=== PATIENT | female | born 1980 ===

== ENCOUNTER 2016-11-07 00:25 | Emergency (ER) | payer MEDICAID, OTHER ==
[2016-11-07 00:26] VITALS: BMI 37.3
[2016-11-07] MEDS ORDERED: Ciprofloxacin 0.3% OPTH SOLN OS STA (00:57)
[2016-11-07] MEDS ORDERED: TDAP Vaccine 0.5 mL Syr IM ONE (00:59)
--- NOTE | 2016-11-07 01:13 | ED PDOC ---
Arrival/HPI - General Historian: Patient - History of Present Illness Time/Duration: 1 week, Other (3 days) Symptom Onset: Gradual Symptom Course: Worsening Quality: Aching, Burning Severity Level: 4 - General Chief Complaint: Eye Problem Time Seen by Provider: 11/07/16 00:50 - History of Present Illness Narrative History of Present Illness (Text): 11/07/16 01:10 36yr old female presents today with 3 day history of left eye burning pain, photophobia and irritation. pt also with lower back pain and stiffness x 1 week. pt states she wears contacts regularly and over the past 3 days developed increasing pain and burning in the left eye. pt thinks she may have scratched her eye. pt states she never leaves her contacts in for an extended period of time. denies headaches, dizziness. no fever/chills. pt also c/o stiffness in the low back x 1 week. taking motrin for pain with minimal relief. denies abdominal pain. no vomiting/diarrhea. no urinary symptoms. denies trauma or injury prior to onset of back pain. pt states about 1 week ago she woke up with pain and stiffness. pt states this happens to her every once and a while. (Quyen Morrison) Past Medical History - Provider Review Nursing Documentation Reviewed: Yes - Travel History Have you recently traveled outside [place] w/in the past 3 mons?: No - Infectious Disease Hx of Infectious Diseases: None - Tetanus Immunization Tetanus Immunization: Unknown - Cardiac Hx Cardiac Disorders: No - Pulmonary Hx Respiratory Disorders: No - Neurological Hx Neurological Disorder: No - HEENT Hx HEENT Disorder: Yes Other/Comment: Keratoconous - Renal Hx Renal Disorder: No - Endocrine/Metabolic Hx Hyperthyroidism: Yes Hx Hypothyroidism: Yes - Hematological/Oncological Hx Anemia: Yes - Integumentary Hx Dermatological Disorder: No - Musculoskeletal/Rheumatological Hx Musculoskeletal Disorders: No - Gastrointestinal Hx Gastrointestinal Disorders: No - Genitourinary/Gynecological Hx Genitourinary Disorders: No - Psychiatric Hx Anxiety: Yes Hx Substance Use: No - Surgical History Hx Section: Yes Hx Gastric Bypass Surgery: Yes (sleeve 05/22) Hx Thyroidectomy: Yes Hx Tubal Ligation: Yes - Anesthesia Hx Anesthesia: Yes Hx Anesthesia Reactions: No Hx Malignant Hyperthermia: No Family/Social History - Physician Review Nursing Documentation Reviewed: Yes Family/Social History: Unknown Family HX Smoking Status: Former Smoker Hx Alcohol Use: Yes Frequency of alcohol use: Socially Hx Substance Use: No Allergies/Home Meds Allergies/Adverse Reactions: Allergies No Known Allergies Allergy (Verified 08/25/15 12:11) Home Medications: Home Meds Medication Instructions Recorded Confirmed Levothyroxine [Synthroid] 200 mcg PO DAILY 11/07/16 11/07/16 Pedi Multivit No.25/Folic Acid 300 mcg PO DAILY 11/07/16 11/07/16 [Flintstones Multivit Chew Tab] Review of Systems - Review of Systems Constitutional: absent: Fatigue, Fevers Eyes: Photophobia, Eye Pain (left eye pain). absent: Vision Changes ENT: absent: Sinus Congestion Respiratory: absent: SOB, Cough Cardiovascular: absent: Chest Pain, Palpitations Gastrointestinal: absent: Abdominal Pain, Nausea, Vomiting Genitourinary Female: absent: Dysuria, Frequency, Hematuria Musculoskeletal: Back Pain Skin: absent: Rash, Pruritis Neurological: absent: Headache, Dizziness Physical Exam Vital Signs Reviewed: Yes Temperature: Afebrile Blood Pressure: Normal Pulse: Regular Respiratory Rate: Normal Appearance: Positive for: Well-Appearing, Non-Toxic, Comfortable Pain Distress: None Mental Status: Positive for: Alert and Oriented X 3 - Systems Exam Head: Present: Atraumatic Pupils: Present: PERRL Conjunctiva: Present: Injected (left conjunctival injection with corneal opacity noted over central corneal; no abrasion, ), Other (no hypema, no periorbital edema or erythema) Mouth: Present: Moist Mucous Membranes Neck: Present: Normal Range of Motion Respiratory/Chest: Present: Clear to Auscultation, Good Air Exchange. No: Respiratory Distress, Accessory Muscle Use Cardiovascular: Present: Regular Rate and Rhythm, Normal S1, S2. No: Murmurs Abdomen: No: Tenderness Back: Present: Normal Inspection, Paraspinal Tenderness (+ right lower paraspinal tenderness. + left lower paraspinal tenderness. ). No: CVA Tenderness, Midline Tenderness Upper Extremity: Present: Normal ROM Lower Extremity: Present: Normal ROM Neurological: Present: GCS=15, Speech Normal Skin: Present: Warm, Dry Psychiatric: Present: Alert, Oriented x 3 Medical Decision Making ED Course and Treatment: 11/07/16 01:22 pt with 3 day history of left eye irritation. visual acuity; 20/70 both eyes; pt without any glasses or contacts. pt with corneal opacity/ulceration to left eye. tetanus updated. cipro drops started. pt given toradol and flexeril for back pain. case discussed with dr. lebron (eye doctor) discussed case in depth regarding my concerns for corneal ulceration. He suggested alternating cipro and vigamox drops every hour and f/u in the office on wednesday at 930am. pt reassessment; pt feeling better after medications. discussed all results in depth with patient. advised f/u with eye doctor on wednesday morning at 930 am. stressed importance of f/u with eye doctor shakir. advised alternating cipro and vigamox drops every hour. advised immediate return if symptoms worsen,persist or if new symptoms develop. pt verbalized understand of d/c instructions and need for immediate f/u. impression; corneal ulceration, back pain motrin every 6 hours as needed for pain flexeril; 1 tablet every 8 hours as needed for muscle spasms; may cause drowsiness Alternate cipro eye drops and vigamox eye drops every hour. Follow up with the Eye doctor on wednesday at 930am Follow up with the primary care physician within the next 2 days. return immediate if symptoms worsen,persist or if new symptoms develop. (Quyen Morrison) I was available for consultation during PA evaluation. The chart was reviewed by me, and I agree with disposition. The documented history was done by the physician green marketing specialist. The documented physical exam was done by the physician green marketing specialist. The documented procedures were done by the physician green marketing specialist. (Major Harrington) - Medication Orders Current Medication Orders: Discontinued Medications Ciprofloxacin (Ciloxan 0.3% [facility]) 2 drop OS Q4H STA Stop: 11/07/16 00:58 Last Admin: 11/07/16 01:08 Dose: 2 drp Cyclobenzaprine HCl (Flexeril) 10 mg PO STAT STA Stop: 11/07/16 00:58 Last Admin: 11/07/16 01:08 Dose: 10 mg Ketorolac Tromethamine (Toradol) 60 mg IM STAT STA Stop: 11/07/16 00:58 Last Admin: 11/07/16 01:08 Dose: 60 mg Tetanus/Reduced Diphtheria/Acell Pertussis (Boostrix Vaccine Inj) 0.5 ml IM .ONCE ONE Stop: 11/07/16 01:00 Last Admin: 11/07/16 01:16 Dose: 0.5 ml Disposition/Present on Arrival - Present on Arrival Any Indicators Present on Arrival: No History of DVT/PE: No History of Uncontrolled Diabetes: No Urinary Catheter: No History of Decub. Ulcer: No History Surgical Site Infection Following: None - Disposition Have Diagnosis and Disposition been Completed?: Yes Disposition Time: 01:30 Patient Plan: Discharge - Disposition Diagnosis: Corneal ulceration, Back pain Disposition: HOME/ ROUTINE Discharge Instructions (ExitCare): Acute Low Back Pain (ED), Corneal Ulcer (ED) Additional Instructions: Alternate cipro eye drops and vigamox eye drops every hour. motrin every 6 hours as needed for pain flexeril; 1 tablet every 8 hours as needed for muscle spasms; may cause drowsiness Follow up with the Eye doctor on wednesday morning at 930am Follow up with the primary care physician within the next 2 days. return immediate if symptoms worsen,persist or if new symptoms develop. Prescriptions: Ciprofloxacin 0.3% [Ciloxan 0.3% Ophth SOLN] 2 drop OD Q1H #1 bottle Cyclobenzaprine [Cyclobenzaprine HCl] 10 mg PO Q8 #10 tab Ibuprofen [Motrin] 600 mg PO Q6H PRN #20 tab PRN Reason: pain/fever reduction Moxifloxacin HCl [Vigamox] 1 drop OS Q1H #1 bottle Referrals: Victor Manuel Lebron [Staff Provider] - Follow up with primary Mike Maxwell MD [Staff Provider] - Follow up with primary Kenji Calix DO [Staff Provider] - Follow up with primary Sara Hopper MD [Staff Provider] - Follow up with primary Forms: WORK NOTE
[2016-11-07 12:22] VITALS: BP 117/69; PULSE 72; RESP 16; TEMP 97.7; O2SAT 98
== END 2016-11-07 02:04 | disposition home or self-care (01) ==
LOC: ED 00:25
DX: H16.002 Unspecified corneal ulcer, left eye (principal); M54.9 Dorsalgia, unspecified; Z23 Encounter for immunization
CPT/HCPCS: 90471; 90715; 96372; 99283; J1885

== ENCOUNTER 2016-11-22 01:16 | Observation (INO) | payer OTHER ==
[2016-11-22 01:28] VITALS: BMI 28.5
[2016-11-22] MEDS ORDERED: Morphine 4 mg/ml ISec IVP STA (01:40)
[2016-11-22] MEDS ORDERED: Sodium Chloride 0.9% 1,000 ML IV STA (01:40)
--- NOTE | 2016-11-22 01:40 | ED PDOC ---
Arrival/HPI - General Chief Complaint: Abdominal Pain Time Seen by Provider: 11/22/16 01:33 Historian: Patient, Spouse - History of Present Illness Narrative History of Present Illness (Text): 11/22/16 01:36 A 36 year old female, whose past medical history includes thyroidectomy, gastric bypass surgery, and anemia, who presents to the emergency department with mid to upper abdominal pain since yesterday. Patient reports associated nausea and multiple episodes of vomiting. The patient denies any fevers, chills , headache, chest pain, shortness of breath, diarrhea, or any other complaints. PMD:Dr. Ayo Bae Time/Duration: Other (today) Symptom Onset: Gradual Symptom Course: Unchanged Activities at Onset: Light Context: Home Past Medical History - Provider Review Nursing Documentation Reviewed: Yes - Infectious Disease Hx of Infectious Diseases: None - Tetanus Immunization Tetanus Immunization: Unknown - Reproductive Menopause: No - Cardiac Hx Cardiac Disorders: No - Pulmonary Hx Respiratory Disorders: No - Neurological Hx Neurological Disorder: No - HEENT Hx HEENT Disorder: No - Renal Hx Renal Disorder: No - Endocrine/Metabolic Hx Hyperthyroidism: Yes Hx Hypothyroidism: Yes - Hematological/Oncological Hx Anemia: Yes - Integumentary Hx Dermatological Disorder: No - Musculoskeletal/Rheumatological Hx Musculoskeletal Disorders: No - Gastrointestinal Hx Gastrointestinal Disorders: No - Genitourinary/Gynecological Hx Genitourinary Disorders: No - Psychiatric Hx Anxiety: Yes Hx Substance Use: No - Surgical History Hx Section: Yes Hx Gastric Bypass Surgery: Yes (sleeve 05/22) Hx Thyroidectomy: Yes Hx Tubal Ligation: Yes - Anesthesia Hx Anesthesia: Yes Hx Anesthesia Reactions: No Hx Malignant Hyperthermia: No Family/Social History - Physician Review Nursing Documentation Reviewed: Yes Family/Social History: No Known Family HX Smoking Status: Former Smoker Hx Alcohol Use: Yes Hx Substance Use: No Allergies/Home Meds Allergies/Adverse Reactions: Allergies No Known Allergies Allergy (Verified 08/25/15 12:11) Home Medications: Home Meds Medication Instructions Recorded Confirmed Levothyroxine [Synthroid] 200 mcg PO DAILY 11/07/16 11/07/16 Pedi Multivit No.25/Folic Acid 300 mcg PO DAILY 11/07/16 11/07/16 [Flintstones Multivit Chew Tab] Review of Systems - Physician Review All systems were reviewed & negative as marked: Yes - Review of Systems Constitutional: Normal. absent: Fevers, Night Sweats Respiratory: Normal. absent: SOB Gastrointestinal: Abdominal Pain (mid to upper abdominal pain), Nausea, Vomiting. absent: Diarrhea Genitourinary Female: Normal. absent: Dysuria, Frequency, Hematuria, Urine Output Changes Musculoskeletal: Normal. absent: Back Pain, Neck Pain Neurological: Normal. absent: Headache, Dizziness Physical Exam Vital Signs Reviewed: Yes Vital Signs Temp Pulse Resp BP Pulse Ox 11/22/16 02:19 110 H 16 120/77 100 11/22/16 01:28 99.1 F 72 20 141/112 H Temperature: Afebrile Blood Pressure: Normal Pulse: Tachycardic Respiratory Rate: Normal Appearance: Positive for: Well-Appearing, Uncomfortable Mental Status: Positive for: Alert and Oriented X 3 - Systems Exam Head: Present: Atraumatic, Normocephalic Pupils: Present: PERRL Extroacular Muscles: Present: EOMI Conjunctiva: Present: Normal Mouth: Present: Moist Mucous Membranes Neck: Present: Normal Range of Motion Respiratory/Chest: Present: Clear to Auscultation, Good Air Exchange. No: Respiratory Distress, Accessory Muscle Use Cardiovascular: Present: Regular Rate and Rhythm, Normal S1, S2. No: Murmurs Abdomen: Present: Tenderness ((+) tenderness mid/upper abdomen) Back: Present: Normal Inspection Upper Extremity: Present: Normal Inspection. No: Cyanosis, Edema Lower Extremity: Present: Normal Inspection. No: Edema Neurological: Present: GCS=15, CN II-XII Intact, Speech Normal Skin: Present: Warm, Dry, Normal Color. No: Rashes Psychiatric: Present: Alert, Oriented x 3, Normal Insight, Normal Concentration Medical Decision Making ED Course and Treatment: 11/22/16 01:40 Impression: A 36 year old female with mid/upper abdominal pain with associated vomiting and nausea. Differential Diagnosis included but are not limited to: Plan: -- Abdomen/Pelvis CT -- Labs -- Morphine, Pepcid, and Zofran -- IV-Fluids -- Urinalysis -- Reassess and disposition Prior Visits: Notes and results from previous visits were reviewed. Patient was last seen in the emergency department on 11/07/2016 for left eye burning pain, photophobia and irritation. Progress Notes: 11/22/16 05:03: EXAM: CT Abdomen and Pelvis With Intravenous Contrast IMPRESSION: 1. Resolution of right ovarian cyst since 08/25/2015. 2. Left ovarian cyst, slightly increased since the prior study measuring 3.6 x 3.1 x 3.1 cm. 3. Status post gastric sleeve which is similar. 4. Fluid throughout the colon to the rectum suggesting diarrhea. Dictated and Authenticated by: Terrence Lester MD 11/22/2016 4:51 AM Eastern Time ([place] & [place]) 11/22/16 05:09: Spoke with medical billing specialist who is aware and agrees with plan. Paged doctor convenience store manager. 11/22/16 05:11: Spoke with Dr. Sabas Stiles who is aware and agrees with plan. Accepts patient into hospitalist service. Patient will go to [facility] observation for intractable abdominal pain and intractable vomiting. - Lab Interpretations Lab Results: 11/22/16 01:30 11/22/16 01:30 Lab Results 11/22/16 01:30: WBC 5.7 D, RBC 3.90, Hgb 8.8 L, Hct 29.1 L, MCV 74.6 L, MCH 22.6 L, MCHC 30.2 L, RDW 15.2 H, Plt Count 343, MPV 9.5 11/22/16 01:30: Sodium 140, Potassium 3.7, Chloride 107, Carbon Dioxide 20 L, Anion Gap 17, BUN 14, Creatinine 0.6, Est GFR ( Amer) > 60, Est GFR (Non- Af Amer) > 60, Random Glucose 110, Calcium 9.0, Total Bilirubin 0.6, AST 28, ALT 15, Alkaline Phosphatase 51, Total Protein 7.6, Albumin 4.3, Globulin 3.4, Albumin/Globulin Ratio 1.3, Lipase 84 - RAD Interpretation Radiology Orders: 11/22/16 02:47 ABD & PELVIS IV CONTRAST ONLY [CT] Stat - Medication Orders Current Medication Orders: Discontinued Medications Famotidine (Pepcid) 20 mg IVP STAT STA Stop: 11/22/16 01:41 Last Admin: 11/22/16 01:46 Dose: 20 mg Famotidine (Pepcid) Confirm Administered Dose 20 mg .ROUTE .STK-MED ONE Stop: 11/22/16 01:46 Last Admin: 11/22/16 01:50 Dose: Sodium Chloride (Sodium Chloride 0.9%) 1,000 mls @ 999 mls/hr IV .Q1H1M STA Stop: 11/22/16 02:40 Last Admin: 11/22/16 01:46 Dose: 999 mls/hr Iohexol (Omnipaque 350 100 Ml) Confirm Administered Dose 350 mg .ROUTE .STK-MED ONE Stop: 11/22/16 03:03 Morphine Sulfate (Morphine) 4 mg IVP STAT STA Stop: 11/22/16 01:41 Last Admin: 11/22/16 01:47 Dose: 4 mg Morphine Sulfate (Morphine) Confirm Administered Dose 4 mg .ROUTE .STK-MED ONE Stop: 11/22/16 01:46 Last Admin: 11/22/16 01:50 Dose: Ondansetron HCl (Zofran Inj) 4 mg IVP ONCE ONE Stop: 11/22/16 01:41 Last Admin: 11/22/16 01:46 Dose: 4 mg Ondansetron HCl (Zofran Inj) Confirm Administered Dose 4 mg .ROUTE .STK-MED ONE Stop: 11/22/16 01:46 Last Admin: 11/22/16 01:50 Dose: Ondansetron HCl (Zofran Inj) 4 mg IVP ONCE ONE Stop: 11/22/16 02:50 - Scribe Statement Katie Bryant training under Ghazala Cruz Provider Scribe Attestation: All medical record entries made by the Scribe were at my direction and personally dictated by me. I have reviewed the chart and agree that the record accurately reflects my personal performance of the history, physical exam, medical decision making, and the department course for this patient. I have also personally directed, reviewed, and agree with the discharge instructions and disposition. Disposition/Present on Arrival - Present on Arrival Any Indicators Present on Arrival: No History of DVT/PE: No History of Uncontrolled Diabetes: No Urinary Catheter: No History of Decub. Ulcer: No History Surgical Site Infection Following: None - Disposition Have Diagnosis and Disposition been Completed?: Yes Diagnosis: Intractable abdominal pain, Intractable vomiting with nausea Disposition: HOSPITALIZED Disposition Time: 05:26 Patient Plan: Observation Patient Problems: Current Active Problems Problem Status Onset Intractable abdominal pain Acute Intractable vomiting with nausea Acute Condition: STABLE
[2016-11-22] MEDS ORDERED: Morphine 4 mg/ml ISec ONE (01:45)
[2016-11-22 01:56] LABS: HEMOGLOBIN 8.8 gm/dL (12.0-16.0); MEAN CELL VOLUME 74.6 fL (80.0-105.0); MEAN CORPUSCULAR HEMOGLOBIN 22.6 pg (25.0-35.0); MEAN CORPUSCULAR HGB CONC 30.2 g/dl (31.0-37.0); MEAN PLATELET VOLUME 9.5 fl (7.0-11.0); RBC 3.9 10^6/uL (3.5-6.1); RED CELL DISTRIBUTION WIDTH 15.2 % (11.5-14.5); WHITE BLOOD COUNT 5.7 10^3/ul (4.5-11.0)
[2016-11-22 02:07] LABS: ALB/GLOB RATIO 1.3 (1.1-1.8); ALBUMIN 4.3 g/dL (3.0-4.8); ALT/SGPT 15 U/L (7-56); AST/SGOT 28 U/L (15-39); BLOOD UREA NITROGEN 14 mg/dL (7-21); GFR AFRICAN-AMERICAN > 60; GFR NON-AFRICAN AMERICAN > 60; LIPASE 84 U/L (23-300)
[2016-11-22] MEDS ORDERED: Iohexol 350 MG/100 ML VIAL ONE (03:02)
[2016-11-22] MEDS ORDERED: Morphine 2 mg/ml ISec IVP PRN (06:07)
--- NOTE | 2016-11-22 06:19 | CP.PCM.HP ---
<FuadcaesarIdania - Last Filed: 11/22/16 07:18> History of Present Illness - History of Present Illness History of Present Illness: 36 year old female who presented to the ED with complaints of abdominal pain x 1 day. Patient states that 2 days ago she ate chillis from [employer] and a piece of cake. Later that day she started feeling nauseous. The next day she began to feel abdominal pain which she describes as "tight and twisting" with associated vomiting. ROS Complains of: Watery Stool, spontaneous bowel movement (in ED), Stress incontinence (while vomitting), subjective fever, chills, and dizziness Denies: Appetite, Chest Pain, SOB, Palpitations, Blood in Stool, Headache, dysuria, urinary frequency. PMHx: Hx of blood transfusions, Papillary Carcinoma of the thyroid (remission), childhood seizures. PSHx: Gastric sleeve, THyroidectomy Allergies: NKDA Family History: Anemia (multiple family members), HTN (Father), smoked marijuana to help with Nausea. Social History: Occasional Alcohol, quit smoking 2-3 years ago. smoked about 3 cigarettes a day Present on Admission - Present on Admission Any Indicators Present on Admission: No Review of Systems - Review of Systems All systems: reviewed and no additional remarkable complaints except Past Patient History - Infectious Disease Hx of Infectious Diseases: None - Tetanus Immunizations Tetanus Immunization: Unknown - Past Social History Smoking Status: Former Smoker - CARDIAC Hx Cardiac Disorders: No - PULMONARY Hx Respiratory Disorders: No - NEUROLOGICAL Hx Neurological Disorder: No - HEENT Hx HEENT Problems: No - RENAL Hx Chronic Kidney Disease: No - ENDOCRINE/METABOLIC Hx Hyperthyroidism: Yes Hx Hypothyroidism: Yes - HEMATOLOGICAL/ONCOLOGICAL Hx Anemia: Yes - INTEGUMENTARY Hx Dermatological Problems: No - MUSCULOSKELETAL/RHEUMATOLOGICAL Hx Musculoskeletal Disorders: No - GASTROINTESTINAL Hx Gastrointestinal Disorders: No - GENITOURINARY/GYNECOLOGICAL Hx Genitourinary Disorders: No - PSYCHIATRIC Hx Anxiety: Yes Hx Substance Use: No - SURGICAL HISTORY Hx Section: Yes Hx Gastric Bypass Surgery: Yes (sleeve 05/22) Hx Thyroidectomy: Yes Hx Tubal Ligation: Yes - ANESTHESIA Hx Anesthesia: Yes Hx Anesthesia Reactions: No Hx Malignant Hyperthermia: No Meds Allergies/Adverse Reactions: Allergies Allergy/AdvReac Type Severity Reaction Status Date / Time No Known Allergies Allergy Verified 08/25/15 12:11 Physical Exam - Constitutional Appears: Well, In Acute Distress - Head Exam Head Exam: ATRAUMATIC, NORMOCEPHALIC - Eye Exam Eye Exam: EOMI, Normal appearance - ENT Exam ENT Exam: Mucous Membranes Dry - Neck Exam Neck exam: Negative for: Lymphadenopathy Additional comments: Absent THyroid - Respiratory Exam Respiratory Exam: Clear to Auscultation Bilateral, NORMAL BREATHING PATTERN. absent: Rales, Rhonchi, Wheezes, Respiratory Distress, Stridor - Cardiovascular Exam Cardiovascular Exam: Tachycardia, RRR, +S1, +S2. absent: +S4 - GI/Abdominal Exam Additional comments: RUQ and LLQ tenderness - Extremities Exam Extremities exam: Positive for: normal capillary refill. Negative for: pedal edema - Back Exam Back exam: absent: CVA tenderness (L), CVA tenderness (R) - Neurological Exam Neurological exam: Alert, Oriented x3 - Psychiatric Exam Psychiatric exam: Normal Affect, Normal Mood - Skin Skin Exam: Dry, Intact, Normal Color, Warm Results - Vital Signs Recent Vital Signs: Last Vital Signs Temp 99.1 F 11/22/16 01:28 Pulse 110 H 11/22/16 02:19 Resp 16 11/22/16 02:19 BP 120/77 11/22/16 02:19 Pulse Ox 100 11/22/16 02:19 - Labs Result Diagrams: 11/22/16 01:30 11/22/16 01:30 Assessment & Plan - Assessment and Plan (Free Text) Assessment: 36 year old female with PMHx of hypothyroidism s/p thyroidectomy for Papillary carcinoma treatment, gastric sleeve, anemia, and hx of blood transfusions who presented with Abdominal pain with associated N/V/D. Hgb 8.8 on admission. Plan: 1. Abdominal pain likely viral enteritis vs food bourne illness vs Diverticulitis (less likely) -liquid Diet -CT ABd/Pelvis -pending read -Stool cultures with CDiff, fecal leuk, stool occult blood -UA -Zofran, Protonix -GI consult -CBC -Maalox -Morphine 2 Q6 for pain control 2. Microcytic Anemia - likely Iron deficient Anemia -Iron, B12, Folate, TIBC, Ferriton -Consider Iron Supplementation if low iron -Monitor vitals Patient seen, reviewed, and discussed with Attending Idania Smith PGY-1 - Date & Time Date: 11/22/16 Time: 06:00 <Ajay Stiles - Last Filed: 11/23/16 06:20> Results - Vital Signs Recent Vital Signs: Last Vital Signs Temp 99.8 F H 11/22/16 16:00 Pulse 79 11/22/16 16:00 Resp 19 11/22/16 16:00 BP 102/68 11/22/16 16:00 Pulse Ox 100 11/22/16 07:33 - Labs Result Diagrams: 11/22/16 08:30 11/22/16 08:30
[2016-11-22] MEDS: Sodium Chloride 0.9% 1,000 ML IV SCH ×2 (06:38→23:16)
[2016-11-22] MEDS: Levothyroxine 200 MCG TAB PO SCH (07:05)
[2016-11-22] MEDS ORDERED: Alum-Mag Hydrox-Simethicone Susp (30 mL) PO STA (07:16)
[2016-11-22 07:58] LABS: % IRON SATURATION 8 % (20-55); IRON 30 ug/dL (45-180); TOTAL IRON BINDING CAPACITY 383 ug/dL (265-497)
[2016-11-22 08:56] LABS: ALB/GLOB RATIO 1.1 (1.1-1.8); ALBUMIN 3.6 g/dL (3.0-4.8); ALT/SGPT 20 U/L (7-56); AST/SGOT 27 U/L (15-39); BLOOD UREA NITROGEN 12 mg/dL (7-21); CALCIUM 7.9 mg/dL (8.4-10.5); GFR AFRICAN-AMERICAN > 60; GFR NON-AFRICAN AMERICAN > 60
[2016-11-22 09:09] LABS: MEAN CELL VOLUME 74.9 fL (80.0-105.0); MEAN CORPUSCULAR HEMOGLOBIN 22.2 pg (25.0-35.0); MEAN CORPUSCULAR HGB CONC 29.7 g/dl (31.0-37.0); PLATELET COUNT 283 10^3/uL (120.0-450.0); RBC 3.51 10^6/uL (3.5-6.1); RED CELL DISTRIBUTION WIDTH 15.6 % (11.5-14.5); WHITE BLOOD COUNT 4.5 10^3/ul (4.5-11.0)
[2016-11-22 09:36] LABS: HEMOGLOBIN 7.8 gm/dL (12.0-16.0)
[2016-11-22 09:39] LABS: LYMPHOCYTE 1 % (22.0-35.0); MONOCYTE 1 % (1.0-6.0); NEUTROPHIL 98 % (50.0-70.0)
[2016-11-22 09:40] LABS: PLATELET ESTIMATE NORMAL (NORMAL)
[2016-11-22] MEDS ORDERED: Potassium Chloride 20 mEq ER Tab PO STA (10:50)
[2016-11-22] MEDS ORDERED: Ciprofloxacin 400mg/200ml D5W 400 MG/200 ML BAG IVPB STA (10:51)
[2016-11-22] MEDS ORDERED: metroNIDAZOLE IV 500 mg/100 ml 500 MG/100 ML BAG IVPB STA (10:51)
[2016-11-22 11:18] LABS: FERRITIN 4.3 ng/mL
[2016-11-22 11:25] LABS: VENOUS BLOOD GAS BASE EXCESS -2.1 mmol/L (0.0-2.0); VENOUS BLOOD GAS PO2 171 mm/Hg (30-55); VENOUS BLOOD PH 7.43 (7.32-7.43)
--- NOTE | 2016-11-22 11:34 | CT ---
PROCEDURE: CT Abdomen and Pelvis with contrast HISTORY: abdominal pain COMPARISON: Unenhanced abdomen pelvis CT exam dated 08/25/2015. TECHNIQUE: Contrast dose: Omnipaque 350, 100 Radiation dose: Total exam DLP = mGy-cm. This CT exam was performed using one or more of the following dose reduction techniques: Automated exposure control, adjustment of the mA and/or kV according to patient size, and/or use of iterative reconstruction technique. FINDINGS: LOWER THORAX: Limited bilateral basilar atelectasis identified. No pleural or pericardial effusion. LIVER: Mild periportal edema is suggested however no discrete mass seen throughout the liver which is normal in overall size. No definite biliary tree dilatation appreciated. GALLBLADDER AND BILE DUCTS: Gallbladder appears distended but is otherwise unremarkable. PANCREAS: Unremarkable. No gross lesion or ductal dilatation. SPLEEN: Unremarkable. ADRENALS: Unremarkable. No mass. KIDNEYS AND URETERS: There multiple tiny lucencies scattered infrequently at the left greater the right kidney which are too small to characterize. The bilateral kidneys are otherwise unremarkable. VASCULATURE: Unremarkable. No aortic aneurysm. BOWEL: Fluid-filled retained fecal material seen throughout the large bowel moderately with of the bowel otherwise unremarkable appearing grossly. There is no ascites or mesenteric edema. APPENDIX: The appendix appears upper limits normal caliber. Clinically correlate. No overt CT pattern appendicitis identified this time. PERITONEUM: Unremarkable. No free fluid. No free air. LYMPH NODES: Unremarkable. No enlarged lymph nodes. BLADDER: Unremarkable. REPRODUCTIVE: Left adnexal cysts is identified measuring 3.9 cm greatest dimension with at least 1 or 2 additional cysts measuring 1-1.5 cm in each case. No right-sided adnexal findings. BONES: No acute fracture. OTHER FINDINGS: None. IMPRESSION: 1. Postoperative gastric sleeve changes are again identified. 2. Potential diarrhea within large bowel given liquified fecal material throughout the colon moderately. 3. Upper limits normal caliber appendix without definitive CT pattern appendicitis. Clinically correlate further. 4. 3.9 cm left adnexal cyst for which follow-up pelvic ultrasound can be performed. Prior right adnexal cyst appears to have resolved. [facility] preliminary results given by Dr. Terrence Lester.
[2016-11-22 11:48] LABS: FOLATE 12.9 ng/mL
--- NOTE | 2016-11-22 19:08 | CP.PCM.CON ---
History of Present Illness - History of Present Illness History of Present Illness: This 36-year-old patient with past medical history of status post thyroidectomy at the age of 8 for papillary carcinoma of the thyroid, gastric sleeve surgery about 18 months ago admitted with abdominal pain nausea vomiting. Patient said she had on Wednesday night the vomiting started 1-hours after her supper . She ate a chili from a [employer] and also a piece of cake. She said she was doing Better before. Patient developed diarrheaWhile she was in the ER. She did not have diarrhea at home no fever. Patient was also found to be anemic. No obvious bleeding per rectum or melena. She remembers having told to have anemia for a long time. Status post a sling surgery. She did have upper GI endoscopy done before the sleeve surgery 18 months ago. She never had a colonoscopy. Review of Systems - Review of Systems All systems: reviewed and no additional remarkable complaints except - Constitutional Constitutional: As Per HPI - EENT Eyes: As Per HPI Ears: absent: Ear Discharge, Dizziness Nose/Mouth/Throat: Change in Voice. absent: Nasal Discharge, Odynophagia - Cardiovascular Cardiovascular: absent: Chest Pain, Palpitations - Respiratory Respiratory: absent: Cough, Dyspnea, Wheezing - Gastrointestinal Gastrointestinal: As Per HPI - Musculoskeletal Musculoskeletal: As Per HPI - Neurological Neurological: As Per HPI - Psychiatric Psychiatric: As Per HPI - Endocrine Additional Comments: Status post thyroid surgery for papillary carcinoma Past Patient History - Infectious Disease Hx of Infectious Diseases: None - Tetanus Immunizations Tetanus Immunization: Unknown - Past Social History Smoking Status: Former Smoker - CARDIAC Hx Cardiac Disorders: No - PULMONARY Hx Respiratory Disorders: No - NEUROLOGICAL Hx Neurological Disorder: No - HEENT Hx HEENT Problems: No - RENAL Hx Chronic Kidney Disease: No - ENDOCRINE/METABOLIC Hx Hyperthyroidism: Yes Hx Hypothyroidism: Yes - HEMATOLOGICAL/ONCOLOGICAL Hx Anemia: Yes - INTEGUMENTARY Hx Dermatological Problems: No - MUSCULOSKELETAL/RHEUMATOLOGICAL Hx Falls: No - GASTROINTESTINAL Hx Gastrointestinal Disorders: No - GENITOURINARY/GYNECOLOGICAL Hx Genitourinary Disorders: No - PSYCHIATRIC Hx Anxiety: Yes - SURGICAL HISTORY Hx Gastric Bypass Surgery: Yes (sleeve 05/22) - ANESTHESIA Hx Anesthesia: Yes Hx Anesthesia Reactions: No Hx Malignant Hyperthermia: No Meds Allergies/Adverse Reactions: Allergies Allergy/AdvReac Type Severity Reaction Status Date / Time No Known Allergies Allergy Verified 08/25/15 12:11 - Medications Medications: Current Medications Sodium Chloride (Sodium Chloride 0.9%) 1,000 mls @ 125 mls/hr IV .Q8H [facility] Last Admin: 11/22/16 06:38 Dose: 125 mls/hr Levothyroxine Sodium (Synthroid) 200 mcg PO 0600 [facility] Last Admin: 11/22/16 07:05 Dose: 200 mcg Morphine Sulfate (Morphine) 2 mg IVP Q6 PRN PRN Reason: Pain, severe (8-10) Last Admin: 11/22/16 07:05 Dose: 2 mg Ondansetron HCl (Zofran Inj) 4 mg IVP Q6 PRN PRN Reason: Nausea/Vomiting Last Admin: 11/22/16 16:07 Dose: 4 mg Pantoprazole Sodium (Protonix Inj) 40 mg IVP DAILY [facility] Last Admin: 11/22/16 10:20 Dose: 40 mg Physical Exam - Constitutional Appears: No Acute Distress - Head Exam Head Exam: ATRAUMATIC, NORMOCEPHALIC - Eye Exam Eye Exam: EOMI, PERRL. absent: Scleral icterus - ENT Exam ENT Exam: Mucous Membranes Moist, Normal Oropharynx - Neck Exam Neck exam: Positive for: Normal Inspection. Negative for: Lymphadenopathy Additional comments: Scar at the thyroid area - Respiratory Exam Respiratory Exam: Clear to Auscultation Bilateral, NORMAL BREATHING PATTERN. absent: Rales, Rhonchi - Cardiovascular Exam Cardiovascular Exam: REGULAR RHYTHM, +S1, +S2. absent: JVD - GI/Abdominal Exam GI & Abdominal Exam: Normal Bowel Sounds, Soft, Tenderness - Extremities Exam Extremities exam: Positive for: pedal edema (We'll bolus is working with him when he is only 1 polyp. Nobody felt in), tenderness. Negative for: calf tenderness ( relation) Additional comments: Mild tenderness present in the epigastric area - Neurological Exam Neurological exam: Alert, Oriented x3 (With spicy food willreport any) Results - Vital Signs Recent Vital Signs: Last Vital Signs Temp 99.8 F H 11/22/16 16:00 Pulse 79 11/22/16 16:00 Resp 19 11/22/16 16:00 BP 102/68 11/22/16 16:00 Pulse Ox 100 11/22/16 07:33 - Labs Result Diagrams: 11/22/16 08:30 11/22/16 08:30 Labs: Laboratory Results - last 24 hr 11/22/16 11/22/16 11/22/16 07:30 08:30 08:30 WBC 4.5 D RBC 3.51 Hgb 7.8 L Hct 26.3 L MCV 74.9 L MCH 22.2 L MCHC 29.7 L RDW 15.6 H Plt Count 283 MPV 9.0 Neutrophils % (Manual) 98 H Lymphocytes % (Manual) 1 L Monocytes % (Manual) 1 Platelet Evaluation Normal pO2 VBG pH VBG pCO2 VBG HCO3 VBG Total CO2 VBG O2 Sat (Calc) VBG Base Excess VBG Potassium Glucose Lactate FiO2 Sodium 140 Potassium 3.3 L Chloride 108 H Carbon Dioxide 22 Anion Gap 13 BUN 12 Creatinine 0.6 Est GFR ( Amer) > 60 Est GFR (Non-Af Amer) > 60 Random Glucose 108 Calcium 7.9 L Iron 30 L TIBC 383 % Saturation 8 L Ferritin 4.3 Total Bilirubin 0.4 AST 27 ALT 20 Alkaline Phosphatase 44 C-React Prot High Sens Total Protein 6.7 Albumin 3.6 Globulin 3.2 Albumin/Globulin Ratio 1.1 Vitamin B12 376 Folate 12.9 Procalcitonin TSH 3rd Generation Venous Blood Potassium 11/22/16 11/22/16 11/22/16 09:00 11:20 11:20 WBC RBC Hgb Hct MCV MCH MCHC RDW Plt Count MPV Neutrophils % (Manual) Lymphocytes % (Manual) Monocytes % (Manual) Platelet Evaluation pO2 171 H VBG pH 7.43 VBG pCO2 33.0 L VBG HCO3 21.9 VBG Total CO2 22.9 VBG O2 Sat (Calc) 98.4 H VBG Base Excess -2.1 L VBG Potassium 3.2 L Glucose 102 Lactate 0.7 FiO2 21.0 Sodium 139.0 Potassium Chloride 112.0 H Carbon Dioxide Anion Gap BUN Creatinine Est GFR ( Amer) Est GFR (Non-Af Amer) Random Glucose Calcium Iron TIBC % Saturation Ferritin Total Bilirubin AST ALT Alkaline Phosphatase C-React Prot High Sens Total Protein Albumin Globulin Albumin/Globulin Ratio Vitamin B12 Folate Procalcitonin 0.36 TSH 3rd Generation 4.20 Venous Blood Potassium 3.2 L 11/22/16 11:20 WBC RBC Hgb Hct MCV MCH MCHC RDW Plt Count MPV Neutrophils % (Manual) Lymphocytes % (Manual) Monocytes % (Manual) Platelet Evaluation pO2 VBG pH VBG pCO2 VBG HCO3 VBG Total CO2 VBG O2 Sat (Calc) VBG Base Excess VBG Potassium Glucose Lactate FiO2 Sodium Potassium Chloride Carbon Dioxide Anion Gap BUN Creatinine Est GFR ( Amer) Est GFR (Non-Af Amer) Random Glucose Calcium Iron TIBC % Saturation Ferritin Total Bilirubin AST ALT Alkaline Phosphatase C-React Prot High Sens > 15.00 H Total Protein Albumin Globulin Albumin/Globulin Ratio Vitamin B12 Folate Procalcitonin TSH 3rd Generation Venous Blood Potassium Assessment & Plan - Assessment and Plan (Free Text) Assessment: This 36-year-old patient with a past medical history status post a thyroidectomy for papillary carcinoma the thyroid, status post Gastric sleeve surgery admitted with abdominal pain vomiting and episodes of diarrhea clinically suggestive of acute gastroenteritis the CT scan of the abdomen and pelvis was reviewed and showed a patchy dilatation of the small bowel. Small adnexal cysts The likely cause could be secondary to the gastroenteritis Anemia slight drop in blood count no obvious GI blood loss Plan: 1. Follow-up of the stool cultures Clear liquid diet slowly advance the diet as patient is tolerating 3. Patient is on empiric antibiotic coverage continue 4. Follow up of the hemoglobin and hematocrit, request IN studies B12 and folate 5. IV iron 6. Elective EGD and colonoscopy 7. Celiac disease profile 8. Empiric PPI therapy Discussed with the resident - Date & Time Date: 11/22/16 Time: 15:15
[2016-11-23] MEDS: Levothyroxine 200 MCG TAB PO SCH (06:06)
[2016-11-23 07:11] LABS: MEAN CORPUSCULAR HEMOGLOBIN 21.9 pg (25.0-35.0); MEAN CORPUSCULAR HGB CONC 28.8 g/dl (31.0-37.0); MEAN PLATELET VOLUME 8.9 fl (7.0-11.0); RBC 3.42 10^6/uL (3.5-6.1); RED CELL DISTRIBUTION WIDTH 15.6 % (11.5-14.5)
[2016-11-23 07:31] LABS: ALBUMIN 2.8 g/dL (3.0-4.8); ALT/SGPT 16 U/L (7-56); AST/SGOT 21 U/L (15-39); BLOOD UREA NITROGEN 7 mg/dL (7-21); CALCIUM 7.9 mg/dL (8.4-10.5); GFR AFRICAN-AMERICAN > 60; GFR NON-AFRICAN AMERICAN > 60
[2016-11-23 07:34] LABS: HEMOGLOBIN 7.5 gm/dL (12.0-16.0); WHITE BLOOD COUNT 2.6 10^3/ul (4.5-11.0)
--- NOTE | 2016-11-23 12:09 | CP.PCM.PN ---
<Nataliia Barnes - Last Filed: 11/23/16 12:33> Subjective - Date & Time of Evaluation Date of Evaluation: 11/23/16 Time of Evaluation: 07:45 - Subjective Subjective: Patient seen and examined at bedside. Per nursing, no acute events overnight. Patient reports abdominal pain has mildly improved. Reports having one episode of vomiting this morning after eating broth. States that she is still having diarrhea however stool is becoming more formed. Also c/o headaches. Denies dizziness, visual changes, CP, SOB, urinary symptoms. Objective - Vital Signs/Intake and Output Vital Signs (last 24 hours): Temp Pulse Resp BP Pulse Ox 97.8 F 68 16 94/64 L 98 11/23/16 08:00 11/23/16 08:00 11/23/16 08:00 11/23/16 08:00 11/23/16 08:00 Intake and Output: 11/23/16 11/23/16 06:59 18:59 Intake Total 920 Balance 920 - Medications Medications: Current Medications Acetaminophen (Tylenol 325mg Tab) 650 mg PO Q6H PRN PRN Reason: Headache Last Admin: 11/22/16 23:29 Dose: 650 mg Sodium Chloride (Sodium Chloride 0.9%) 1,000 mls @ 125 mls/hr IV .Q8H [facility] Last Admin: 11/22/16 23:16 Dose: 125 mls/hr Levothyroxine Sodium (Synthroid) 200 mcg PO 0600 [facility] Last Admin: 11/23/16 06:06 Dose: 200 mcg Morphine Sulfate (Morphine) 2 mg IVP Q6 PRN PRN Reason: Pain, severe (8-10) Last Admin: 11/22/16 07:05 Dose: 2 mg Ondansetron HCl (Zofran Inj) 4 mg IVP Q6 PRN PRN Reason: Nausea/Vomiting Last Admin: 11/22/16 16:07 Dose: 4 mg Pantoprazole Sodium (Protonix Inj) 40 mg IVP DAILY [facility] Last Admin: 11/23/16 10:53 Dose: 40 mg - Labs Labs: 11/23/16 06:45 11/23/16 06:45 - Constitutional Appears: Well, Non-toxic - Head Exam Head Exam: ATRAUMATIC, NORMAL INSPECTION - Eye Exam Eye Exam: EOMI, Normal appearance - ENT Exam ENT Exam: Mucous Membranes Moist - Neck Exam Neck Exam: Full ROM - Respiratory Exam Respiratory Exam: Clear to Ausculation Bilateral, NORMAL BREATHING PATTERN - Cardiovascular Exam Cardiovascular Exam: REGULAR RHYTHM, +S1, +S2 - GI/Abdominal Exam GI & Abdominal Exam: Soft, Normal Bowel Sounds. absent: Guarding, Tenderness, Rebound - Extremities Exam Extremities Exam: Normal Inspection. absent: Calf Tenderness, Pedal Edema - Back Exam Back Exam: NORMAL INSPECTION - Neurological Exam Neurological Exam: Alert, Awake, Oriented x3 - Psychiatric Exam Psychiatric exam: Normal Affect, Normal Mood - Skin Skin Exam: Dry, Normal Color, Warm Assessment and Plan - Assessment and Plan (Free Text) Assessment: 36 year old female with PMHx of hypothyroidism s/p thyroidectomy for Papillary carcinoma treatment, gastric sleeve, anemia, and hx of blood transfusions who presented with Abdominal pain with associated N/V/D. Hgb 8.8 on admission. Plan: 1. Abdominal pain likely viral enteritis vs food bourne illness; r/o gastric ulcers - Stable, afebrile - F/U am labs - F/U Stool cultures with CDiff, fecal leuk, stool occult blood, f/u celiac workup - NPO for EGD with GI today - Pain control - Morphine prn - Zofran, Protonix - GI on consult, f/u recommendations - Colonoscopy as an outpatient - CT abd/pelvis: post operative gastric sleeve changes, potential diarrhea within large bowel given liquified fecal material throughout colon moderately. 2. Microcytic Anemia - likely 2/2 Iron deficient Anemia - Hgb today 7.6, asymptomatic - s/p Venofer - Will order another dose of Venofer today - Monitor vitals 3. Hypothyroidism - Continue Synthroid 200mcg daily - TSH 4.20 4. L Adnexal Cyst - CT abd/pelvis: 3.9cm L adnexal cyst - Incidental finding - Patient denies any pelvic pain, will instruct to follow up with [facility] [employer] as an outpatient for further evaluation 5. Headache - Tylenol prn - Continue to monitor Nataliia Barnes PGY-1 <Wendy Gomez - Last Filed: 11/23/16 13:28> Objective - Vital Signs/Intake and Output Vital Signs (last 24 hours): Temp Pulse Resp BP Pulse Ox 97.8 F 68 16 94/64 L 98 11/23/16 08:00 11/23/16 08:00 11/23/16 08:00 11/23/16 08:00 11/23/16 08:00 Intake and Output: 11/23/16 11/23/16 06:59 18:59 Intake Total 920 Balance 920 - Medications Medications: Current Medications Acetaminophen (Tylenol 325mg Tab) 650 mg PO Q6H PRN PRN Reason: Headache Last Admin: 11/22/16 23:29 Dose: 650 mg Sodium Chloride (Sodium Chloride 0.9%) 1,000 mls @ 125 mls/hr IV .Q8H [facility] Last Admin: 11/22/16 23:16 Dose: 125 mls/hr Levothyroxine Sodium (Synthroid) 200 mcg PO 0600 [facility] Last Admin: 11/23/16 06:06 Dose: 200 mcg Morphine Sulfate (Morphine) 2 mg IVP Q6 PRN PRN Reason: Pain, severe (8-10) Last Admin: 11/22/16 07:05 Dose: 2 mg Ondansetron HCl (Zofran Inj) 4 mg IVP Q6 PRN PRN Reason: Nausea/Vomiting Last Admin: 11/22/16 16:07 Dose: 4 mg Pantoprazole Sodium (Protonix Inj) 40 mg IVP DAILY [facility] Last Admin: 11/23/16 10:53 Dose: 40 mg - Labs Labs: 11/23/16 06:45 11/23/16 06:45 Attending/Attestation - Attestation I have personally seen and examined this patient.: Yes I have fully participated in the care of the patient.: Yes I have reviewed all pertinent clinical information, including history, physical exam and plan: Yes Notes (Text): 11/23/16 13:24 36 year old female with past medical history of hypothyroidism, papillary carcinoma s/p thyroidectomy, chronic anemia and history of gastric sleeve who presented with complaint of abdominal pain, nausea, vomiting and diarrhea. CT abd/pelvis showed post operative gastric sleeve changes, liquified stool throughout the colon and 3.9 cm left adnexal cyst. She was also found to have iron deficiency, microcytic anemia who which she is on iv iron. GI is following the patient and is planning for EGD today. Continue with protonix and zofran prn. Advance diet as tolerated after EGD. She will need close outpatient GI and gynecology follow up after discharge. Wendy Gomez MD Hospitalist.
[2016-11-23] MEDS ORDERED: Propofol 10 mg/ml Inj (20 ML) ONE ×2 (14:54→15:11)
[2016-11-23] MEDS ORDERED: Benzocaine/Menthol (Cepacol) Lozenge MT PRN (21:57)
[2016-11-24] MEDS: Sodium Chloride 0.9% 1,000 ML IV SCH ×2 (03:15→09:52)
[2016-11-24] MEDS: Levothyroxine 200 MCG TAB PO SCH (05:18)
[2016-11-24 07:27] LABS: MEAN CELL VOLUME 75.1 fL (80.0-105.0); MEAN CORPUSCULAR HEMOGLOBIN 21.6 pg (25.0-35.0); MEAN CORPUSCULAR HGB CONC 28.7 g/dl (31.0-37.0); MEAN PLATELET VOLUME 9.5 fl (7.0-11.0); RBC 3.34 10^6/uL (3.5-6.1); RED CELL DISTRIBUTION WIDTH 15.5 % (11.5-14.5); WHITE BLOOD COUNT 4.7 10^3/ul (4.5-11.0)
[2016-11-24 07:35] LABS: HEMOGLOBIN 7.2 gm/dL (12.0-16.0)
[2016-11-24 08:01] VITALS: O2SAT 98
[2016-11-24 08:12] LABS: ALB/GLOB RATIO 1.1 (1.1-1.8); ALT/SGPT 17 U/L (7-56); AST/SGOT 24 U/L (15-39); BLOOD UREA NITROGEN 4 mg/dL (7-21); GFR AFRICAN-AMERICAN > 60; GFR NON-AFRICAN AMERICAN > 60; MAGNESIUM 1.7 mg/dL (1.7-2.2)
[2016-11-24] MEDS: Potassium Chloride 40 mEq/30 ml LIQ UD PO SCH ×2 (12:53→16:33)
--- NOTE | 2016-11-24 17:01 | CP.PCM.DIS ---
<Nataliia Barnes - Last Filed: 11/25/16 06:16> Provider - Provider Date of Admission: 11/22/16 17:51 Attending physician: Wendy Gomez MD Primary care physician: Ayo Bae MD Time Spent in preparation of Discharge (in minutes): 45 Diagnosis - Discharge Diagnosis (1) Anemia Status: Acute (2) Esophagitis Status: Acute (3) Gastritis Status: Acute (4) Intractable abdominal pain Status: Acute (5) Intractable vomiting with nausea Status: Acute Hospital Course - Lab Results Lab Results: Micro Results 11/23/16 10:00 Stool C. difficile Antigen & Toxin A,B (M - Final Most Recent Lab Values WBC 4.7 10^3/ul (4.5-11.0) D 11/24/16 07:10 RBC 3.34 10^6/uL (3.5-6.1) L 11/24/16 07:10 Hgb 7.2 gm/dL (12.0-16.0) L 11/24/16 07:10 Hct 25.1 % (36.0-48.0) L 11/24/16 07:10 MCV 75.1 fL (80.0-105.0) L 11/24/16 07:10 MCH 21.6 pg (25.0-35.0) L 11/24/16 07:10 MCHC 28.7 g/dl (31.0-37.0) L 11/24/16 07:10 RDW 15.5 % (11.5-14.5) H 11/24/16 07:10 Plt Count 251 10^3/uL (120.0-450.0) 11/24/16 07:10 MPV 9.5 fl (7.0-11.0) 11/24/16 07:10 Neutrophils % (Manual) 98 % (50.0-70.0) H 11/22/16 08:30 Lymphocytes % (Manual) 1 % (22.0-35.0) L 11/22/16 08:30 Monocytes % (Manual) 1 % (1.0-6.0) 11/22/16 08:30 Platelet Evaluation Normal (NORMAL) 11/22/16 08:30 pO2 171 mm/Hg (30-55) H 11/22/16 11:20 VBG pH 7.43 (7.32-7.43) 11/22/16 11:20 VBG pCO2 33.0 (40-60) L 11/22/16 11:20 VBG HCO3 21.9 mmol/l (21-28) 11/22/16 11:20 VBG Total CO2 22.9 mmol.L (22-28) 11/22/16 11:20 VBG O2 Sat (Calc) 98.4 % (40-65) H 11/22/16 11:20 VBG Base Excess -2.1 mmol/L (0.0-2.0) L 11/22/16 11:20 VBG Potassium 3.2 mmol/L (3.6-5.2) L 11/22/16 11:20 Sodium 139.0 mmol/L (132-148) 11/22/16 11:20 Chloride 112.0 mmol/L (98-107) H 11/22/16 11:20 Glucose 102 mg/dl (65-105) 11/22/16 11:20 Lactate 0.7 mmol/L (0.7-2.1) 11/22/16 11:20 FiO2 21.0 % 11/22/16 11:20 Sodium 139 mmol/L (132-148) 11/24/16 07:10 Potassium 3.2 mmol/L (3.6-5.0) L 11/24/16 07:10 Chloride 105 mmol/L (95-110) 11/24/16 07:10 Carbon Dioxide 24 mmol/L (21-33) 11/24/16 07:10 Anion Gap 13 (10-20) 11/24/16 07:10 BUN 4 mg/dL (7-21) L 11/24/16 07:10 Creatinine 0.6 mg/dL (0.5-1.4) 11/24/16 07:10 Est GFR ( Amer) > 60 11/24/16 07:10 Est GFR (Non-Af Amer) > 60 11/24/16 07:10 Random Glucose 80 mg/dL (70-110) 11/24/16 07:10 Calcium 8.0 mg/dL (8.4-10.5) L 11/24/16 07:10 Phosphorus 2.7 mg/dL (2.5-4.5) 11/24/16 07:10 Magnesium 1.7 mg/dL (1.7-2.2) 11/24/16 07:10 Iron 30 ug/dL (45-180) L 11/22/16 07:30 TIBC 383 ug/dL (265-497) 11/22/16 07:30 % Saturation 8 % (20-55) L 11/22/16 07:30 Ferritin 4.3 ng/mL 11/22/16 08:30 Total Bilirubin 0.2 mg/dL (0.2-1.3) 11/24/16 07:10 AST 24 U/L (15-39) 11/24/16 07:10 ALT 17 U/L (7-56) 11/24/16 07:10 Alkaline Phosphatase 42 U/L (38-133) 11/24/16 07:10 C-React Prot High Sens > 15.00 mg/L (1.00-3.00) H 11/22/16 11:20 Total Protein 5.7 g/dL (5.8-8.3) L 11/24/16 07:10 Albumin 3.0 g/dL (3.0-4.8) 11/24/16 07:10 Globulin 2.7 gm/dL 11/24/16 07:10 Albumin/Globulin Ratio 1.1 (1.1-1.8) 11/24/16 07:10 Lipase 84 U/L (23-300) 11/22/16 01:30 Vitamin B12 376 pg/mL (239-931) 11/22/16 08:30 Folate 12.9 ng/mL 11/22/16 08:30 Procalcitonin 0.36 NG/ML (0.19-0.49) 11/22/16 11:20 TSH 3rd Generation 4.20 mIU/mL (0.46-4.68) 11/22/16 09:00 Venous Blood Potassium 3.2 mmol/L (3.6-5.2) L 11/22/16 11:20 Stool Leukocytes, Qual Negative (NEGATIVE) 11/23/16 10:00 IgA 178 mg/dL (81-463) 11/22/16 13:23 Endomysial IgA Ab Titer TEST NOT PERFORMED 11/22/16 13:23 Endomysial IgA Ab TEST NOT PERFORMED 11/22/16 13:23 Tiss Transglutamin IgA 1 U/mL (<4) 11/22/16 13:23 Blood Type A POSITIVE 11/24/16 09:20 Blood Type Confirm A POSITIVE 11/24/16 10:44 Antibody Screen Negative 11/24/16 09:20 Crossmatch See Detail 11/24/16 09:20 BBK History Checked No verified bt 11/24/16 09:20 - Hospital Course Hospital Course: 36 year old female with pmhx of papillary thyroid CA, anemia, and gastric sleeve presented to the ED with complaints of abdominal pain x 1 day. Patient states that 2 days ago she ate chillis from [employer] and a piece of cake. Later that day she started feeling nauseous. The next day she began to feel abdominal pain which she describes as "tight and twisting" with associated vomiting. Patient also reports having episodes of watery diarrhea. CT abd/pelvis showed post operative gastric sleeve changes, potential diarrhea within large bowel given liquified fecal material throughout colon moderately. Patient was admitted to the hospital. GI was consulted and on the case. Patient had blood work drawn for celiac disease workup. Stool studies were collected, C diff was sent out and was negative. During admission patient was found to be anemic with hgb of 7.5 and was asymptomatic. Iron studies showed iron deficiency anemia. She admitted to having heavy menses. Patient was started on IV iron and GI took the patient for EGD with biopsy that showed LA grade A reflux esophagitis and chronic gastritis. Patient tolerated the procedure well. Diet was advanced and patient was tolerating well. Electrolytes were monitored and repleted. On day of discharge, hgb dropped to 7.2. Patient received 1 unit of PRBCs and post transfusion hgb was checked. Hgb sharon appropriately. Patient was discharge on Protonix and instructed to continue Iron PO solution. On CT abd/pelvis, 3.9 cm adnexal cyst was visualized. Patient was instructed to follow up with CLAIMS CLERK for further testing. Patient was medically stable on day discharge, labs were reviewed and vital signs were stable. Patient instructed to follow up with PMD and GI within 1 week. Plan for colonoscopy as an outpatient. All questions and concerns were addressed. Discharge Exam - Head Exam Head Exam: ATRAUMATIC, NORMAL INSPECTION - Eye Exam Eye Exam: EOMI, Normal appearance Pupil Exam: NORMAL ACCOMODATION - ENT Exam ENT Exam: Normal Exam - Neck Exam Neck exam: Full Rom - Respiratory Exam Respiratory Exam: Clear to PA & Lateral, NORMAL BREATHING PATTERN. absent: Rhonchi, Wheezes, Respiratory Distress - Cardiovascular Exam Cardiovascular Exam: REGULAR RHYTHM, +S1, +S2 - GI/Abdominal Exam GI & Abdominal Exam: Soft. absent: Firm, Rebound, Rigid, Tenderness - Extremities Exam Extremities exam: normal inspection, pedal pulses present - Neurological Exam Neurological exam: Alert, CN II-XII Intact, Oriented x3 - Psychiatric Exam Psychiatric exam: Normal Affect, Normal Mood - Skin Skin Exam: Dry, Normal Color, Warm Discharge Plan - Discharge Medications Prescriptions: Pantoprazole Sodium [Protonix] 40 mg PO DAILY #30 ect - Follow Up Plan Condition: STABLE Disposition: HOME/ ROUTINE Additional Instructions: Patient to follow up with PMD and GI within 1 week, plan for colonoscopy as an outpatient, Continue Iron po solution and protonix 40mg PO daily Referrals: Kathia SLOAN,Ayo Zarate MD [Primary Care Provider] - Follow up with primary <Wendy Gomez - Last Filed: 11/25/16 06:59> Provider - Provider Date of Admission: 11/22/16 17:51 Attending physician: Wendy Gomez MD Primary care physician: Ayo Bae MD Hospital Course - Lab Results Lab Results: Micro Results 11/23/16 10:00 Stool C. difficile Antigen & Toxin A,B (M - Final Most Recent Lab Values WBC 4.2 10^3/ul (4.5-11.0) L 11/24/16 18:57 RBC 3.64 10^6/uL (3.5-6.1) 11/24/16 18:57 Hgb 8.4 gm/dL (12.0-16.0) L 11/24/16 18:57 Hct 28.0 % (36.0-48.0) L 11/24/16 18:57 MCV 76.9 fL (80.0-105.0) L 11/24/16 18:57 MCH 23.1 pg (25.0-35.0) L 11/24/16 18:57 MCHC 30.0 g/dl (31.0-37.0) L 11/24/16 18:57 RDW 15.8 % (11.5-14.5) H 11/24/16 18:57 Plt Count 228 10^3/uL (120.0-450.0) 11/24/16 18:57 MPV 8.8 fl (7.0-11.0) 11/24/16 18:57 Gran % 66.1 % (50.0-68.0) 11/24/16 18:57 Lymph % (Auto) 23.8 % (22.0-35.0) 11/24/16 18:57 [place] % (Auto) 8.5 % (1.0-6.0) H 11/24/16 18:57 Eos % (Auto) 1.4 % (1.5-5.0) L 11/24/16 18:57 Baso % (Auto) 0.2 % (0.0-3.0) 11/24/16 18:57 Gran # 2.80 (1.4-6.5) 11/24/16 18:57 Lymph # 1.0 (1.2-3.4) L 11/24/16 18:57 [place] # 0.4 (0.1-0.6) 11/24/16 18:57 Eos # 0.1 (0.0-0.7) 11/24/16 18:57 Baso # 0.01 K/mm3 (0.0-2.0) 11/24/16 18:57 Neutrophils % (Manual) 98 % (50.0-70.0) H 11/22/16 08:30 Lymphocytes % (Manual) 1 % (22.0-35.0) L 11/22/16 08:30 Monocytes % (Manual) 1 % (1.0-6.0) 11/22/16 08:30 Platelet Evaluation Normal (NORMAL) 11/22/16 08:30 pO2 171 mm/Hg (30-55) H 11/22/16 11:20 VBG pH 7.43 (7.32-7.43) 11/22/16 11:20 VBG pCO2 33.0 (40-60) L 11/22/16 11:20 VBG HCO3 21.9 mmol/l (21-28) 11/22/16 11:20 VBG Total CO2 22.9 mmol.L (22-28) 11/22/16 11:20 VBG O2 Sat (Calc) 98.4 % (40-65) H 11/22/16 11:20 VBG Base Excess -2.1 mmol/L (0.0-2.0) L 11/22/16 11:20 VBG Potassium 3.2 mmol/L (3.6-5.2) L 11/22/16 11:20 Sodium 139.0 mmol/L (132-148) 11/22/16 11:20 Chloride 112.0 mmol/L (98-107) H 11/22/16 11:20 Glucose 102 mg/dl (65-105) 11/22/16 11:20 Lactate 0.7 mmol/L (0.7-2.1) 11/22/16 11:20 FiO2 21.0 % 11/22/16 11:20 Sodium 139 mmol/L (132-148) 11/24/16 07:10 Potassium 3.2 mmol/L (3.6-5.0) L 11/24/16 07:10 Chloride 105 mmol/L (95-110) 11/24/16 07:10 Carbon Dioxide 24 mmol/L (21-33) 11/24/16 07:10 Anion Gap 13 (10-20) 11/24/16 07:10 BUN 4 mg/dL (7-21) L 11/24/16 07:10 Creatinine 0.6 mg/dL (0.5-1.4) 11/24/16 07:10 Est GFR ( Amer) > 60 11/24/16 07:10 Est GFR (Non-Af Amer) > 60 11/24/16 07:10 Random Glucose 80 mg/dL (70-110) 11/24/16 07:10 Calcium 8.0 mg/dL (8.4-10.5) L 11/24/16 07:10 Phosphorus 2.7 mg/dL (2.5-4.5) 11/24/16 07:10 Magnesium 1.7 mg/dL (1.7-2.2) 11/24/16 07:10 Iron 30 ug/dL (45-180) L 11/22/16 07:30 TIBC 383 ug/dL (265-497) 11/22/16 07:30 % Saturation 8 % (20-55) L 11/22/16 07:30 Ferritin 4.3 ng/mL 11/22/16 08:30 Total Bilirubin 0.2 mg/dL (0.2-1.3) 11/24/16 07:10 AST 24 U/L (15-39) 11/24/16 07:10 ALT 17 U/L (7-56) 11/24/16 07:10 Alkaline Phosphatase 42 U/L (38-133) 11/24/16 07:10 C-React Prot High Sens > 15.00 mg/L (1.00-3.00) H 11/22/16 11:20 Total Protein 5.7 g/dL (5.8-8.3) L 11/24/16 07:10 Albumin 3.0 g/dL (3.0-4.8) 11/24/16 07:10 Globulin 2.7 gm/dL 11/24/16 07:10 Albumin/Globulin Ratio 1.1 (1.1-1.8) 11/24/16 07:10 Lipase 84 U/L (23-300) 11/22/16 01:30 Vitamin B12 376 pg/mL (239-931) 11/22/16 08:30 Folate 12.9 ng/mL 11/22/16 08:30 Procalcitonin 0.36 NG/ML (0.19-0.49) 11/22/16 11:20 TSH 3rd Generation 4.20 mIU/mL (0.46-4.68) 11/22/16 09:00 Venous Blood Potassium 3.2 mmol/L (3.6-5.2) L 11/22/16 11:20 Stool Leukocytes, Qual Negative (NEGATIVE) 11/23/16 10:00 IgA 178 mg/dL (81-463) 11/22/16 13:23 Endomysial IgA Ab Titer TEST NOT PERFORMED 11/22/16 13:23 Endomysial IgA Ab TEST NOT PERFORMED 11/22/16 13:23 Tiss Transglutamin IgA 1 U/mL (<4) 11/22/16 13:23 Blood Type A POSITIVE 11/24/16 09:20 Blood Type Confirm A POSITIVE 11/24/16 10:44 Antibody Screen Negative 11/24/16 09:20 Crossmatch See Detail 11/24/16 09:20 BBK History Checked No verified bt 11/24/16 09:20 Attending/Attestation - Attestation I have personally seen and examined this patient.: Yes I have fully participated in the care of the patient.: Yes I have reviewed all pertinent clinical information, including history, physical exam and plan: Yes Notes (Text): 11/24/16 36 year old female with past medical history of hypothyroidism, papillary carcinoma s/p thyroidectomy, chronic anemia and history of gastric sleeve who presented with complaint of abdominal pain, nausea, vomiting and diarrhea. CT abd/pelvis showed post operative gastric sleeve changes, liquified stool throughout the colon and 3.9 cm left adnexal cyst. She was also found to have iron deficiency, microcytic anemia who which she received iv iron and prbc transfusion today. Her abdominal symptoms resolved. She was seen by GI and had EGD which showed esophagitis/gastritis. She is on protonix and iron supplement at home as well. Patient is discharged home to follow up with her pmd. Follow up with GI and traffic investigator. Wendy Gomez MD Hospitalist.
--- NOTE | 2016-11-24 18:34 | PN ---
GI FOLLOWUP NOTE SUBJECTIVE: Seen and examined at the bedside earlier today. She had an upper endoscopy yesterday and found to have LA grade A esophagitis and chronic gastritis. Biopsies obtained. Report, mild sore throat use Cepacol lozenges. No fever, chills, nausea, vomiting or abdominal pain. Tolerated her solids. PHYSICAL EXAMINATION: VITAL SIGNS: Temperature, this morning is 98.6; blood pressure 117/76; pulse 80; respirations 20; 98% on room air. HEENT: Sclera is anicteric. NECK: Supple. CARDIAC: S1 and S2. LUNGS: Clear. ABDOMEN: With bowel sounds, soft, nontender. No rebound. No guarding. LABORATORY DATA: WBC 4.7, H and H is 7.2 and 25.1, platelets is 251. Sodium 139, potassium 3.2, BUN is 4, creatinine is 0.6. LFTs are within normal limit. ASSESSMENT: A 36-year-old female with a history of thyroidectomy for papillary carcinoma of the thyroid, history of gastric sleeve surgery, came with abdominal pain, vomiting and episodes of diarrhea likely secondary to gastroenteritis. She did have CT scan showing some patchy dilatation of the small bowel and small adnexal cyst. The patient also with anemia had a endoscopy, yesterday, found to have LA grade A esophagitis and chronic gastritis. PLAN: Follow up pathology. Continue her diet as tolerated. She is going to get blood transfusion of 2 units today and hypokaliemia, she is getting potassium replacement. Also discussed with the patient regarding outpatient elective colonoscopy for further evaluation of anemia. The patient was seen and case discussed with Dr. Marroquin. LIAM Haywood
[2016-11-24 19:01] VITALS: BP 110/76; PULSE 82; RESP 18; TEMP 98.2
[2016-11-24 19:07] LABS: BASO # 0.01 K/mm3 (0.0-2.0); BASO % 0.2 % (0.0-3.0); EOS # 0.1 (0.0-0.7); EOS % 1.4 % (1.5-5.0); GRAN % 66.1 % (50.0-68.0); HEMOGLOBIN 8.4 gm/dL (12.0-16.0); LYMPH % 23.8 % (22.0-35.0); MEAN CELL VOLUME 76.9 fL (80.0-105.0); MEAN CORPUSCULAR HEMOGLOBIN 23.1 pg (25.0-35.0); MEAN PLATELET VOLUME 8.8 fl (7.0-11.0); MONO # 0.4 (0.1-0.6); MONO % 8.5 % (1.0-6.0); PLATELET COUNT 228 10^3/uL (120.0-450.0); RBC 3.64 10^6/uL (3.5-6.1); RED CELL DISTRIBUTION WIDTH 15.8 % (11.5-14.5); WHITE BLOOD COUNT 4.2 10^3/ul (4.5-11.0)
== END 2016-11-24 22:40 | disposition home or self-care (01) ==
LOC: ED 01:16 → ERH 05:12 → UNDOADMOB 05:12 → ERH 06:18 → 5RNO 06:52 → ERH 06:52 → INTOOBSV 17:51 → OBSVTOIN 17:51 → UNDODISOB 11-24 22:40
PROVIDERS: ADMIT Internal Medicine; ATTEND Internal Medicine
DX: D50.9 Iron deficiency anemia, unspecified (principal); E89.0 Postprocedural hypothyroidism; Z85.850 Personal history of malignant neoplasm of thyroid; K21.0 Gastro-esophageal reflux disease with esophagitis; K29.50 Unspecified chronic gastritis without bleeding; N83.202 Unspecified ovarian cyst, left side; N92.0 Excessive and frequent menstruation with regular cycle; Z87.891 Personal history of nicotine dependence; Z98.51 Tubal ligation status; Z98.84 Bariatric surgery status; Z82.49 Family history of ischemic heart disease and other diseases of the circulatory system; Z83.2 Family history of diseases of the blood and blood-forming organs and certain disorders involving the immune mechanism; R10.9 Unspecified abdominal pain; R11.2 Nausea with vomiting, unspecified; K52.9 Noninfective gastroenteritis and colitis, unspecified
CPT/HCPCS: 36415; 36430; 43239; 74177; 80053; 82607; 82728; 82746; 82784; 82803; 83516; 83540; 83550; 83690; 83735; 84100; 84145; 84443; 85025; 85027; 86140; 86850; 86900; 86920; 87045; 87324; 88305; 88312; 88342; 89055; 96361; 96374; 96375; 96376; 99284; C9113; G0378; J0744; J1756; J2001; J2270; J2405; J2704; J3480; J7040; P9016; Q9967

== ENCOUNTER 2017-07-11 09:01 | Inpatient (IN) | payer BC, OTHER ==
[2017-07-11 09:01] VITALS: BMI 28.5
[2017-07-11] MEDS ORDERED: Famotidine 20mg/50ml 20 MG/50 ML BAG IVPB STA (09:27)
[2017-07-11] MEDS ORDERED: Sodium Chloride 0.9% 1,000 ML IV STA (09:27)
--- NOTE | 2017-07-11 09:28 | ED PDOC ---
Arrival/HPI - General Chief Complaint: Flu-like Symptoms Time Seen by Provider: 07/11/17 09:12 Historian: Patient, Spouse - History of Present Illness Narrative History of Present Illness (Text): 07/11/17 09:28 pt p/w + 1.5-2 weeks onset of progressively worsening weakness; pt with intermittent nausea/vomiting, loose stool; over the last 1 week, pt states her symptoms are much more persistent with near 2-3 episodes of vomiting/day and decr appetite; pt also felt extremely dizzy/lightheaded at times; pt is concern that her symptoms are similiar to when she needed blood transfusions in the past ; pt states no fever/sweats, ? chills; no cp/sob, no palpitations; + easily fatigued; pt states mild diffuse abd pain, no urinary changes, no rashes; pt was noted by spouse to be slightly pale as well; + sick contact with + sore throat/congestion but no cough over the last 1-1.5 week; pt states no fall/loc, no trauma, no travel; pt is here for further eval; pt's without other complaints. PCP: Demetrio? Time/Duration: > week (1.5-2 weeks) Symptom Onset: Gradual Symptom Course: Worsening Quality: Cramping Severity Level: 5 Activities at Onset: Rest Context: Home Past Medical History - Provider Review Nursing Documentation Reviewed: Yes - Travel History Have you recently traveled outside [place] w/in the past 3 mons?: No - Past History Past History: No Previous - Infectious Disease Hx of Infectious Diseases: None - Tetanus Immunization Tetanus Immunization: Unknown - Reproductive Menopause: No Currently : No - Cardiac Hx Cardiac Disorders: No - Pulmonary Hx Respiratory Disorders: No - Neurological Hx Neurological Disorder: No - HEENT Hx HEENT Disorder: No - Renal Hx Renal Disorder: No - Endocrine/Metabolic Hx Hyperthyroidism: Yes Hx Hypothyroidism: Yes - Hematological/Oncological Hx Anemia: Yes Hx Blood Transfusions: No - Integumentary Hx Dermatological Disorder: No - Musculoskeletal/Rheumatological Hx Falls: No - Gastrointestinal Hx Gastrointestinal Disorders: No - Genitourinary/Gynecological Hx Genitourinary Disorders: No - Psychiatric Hx Anxiety: Yes Hx Substance Use: No - Surgical History Hx Gastric Bypass Surgery: Yes (sleeve 05/22) - Anesthesia Hx Anesthesia: Yes Hx Anesthesia Reactions: No Hx Malignant Hyperthermia: No Family/Social History - Physician Review Nursing Documentation Reviewed: Yes Family/Social History: No Known Family HX Smoking Status: Former Smoker Hx Alcohol Use: Yes (social) Hx Substance Use: No Hx Substance Use Treatment: No Allergies/Home Meds Allergies/Adverse Reactions: Allergies No Known Allergies Allergy (Verified 07/11/17 09:09) Home Medications: Home Meds Medication Instructions Recorded Confirmed Levothyroxine [Synthroid] 175 mcg PO DAILY 11/07/16 07/11/17 Review of Systems - Review of Systems Constitutional: Fatigue, Other (chills) Eyes: Normal ENT: Normal Respiratory: Normal Cardiovascular: Normal Gastrointestinal: Abdominal Pain, Stool Changes, Nausea, Vomiting Genitourinary Female: Normal Musculoskeletal: Normal Skin: Normal Neurological: Dizziness, Other (weakness) Endocrine: Normal Hemo/Lymphatic: Normal Psychiatric: Normal Physical Exam Vital Signs Reviewed: Yes Vital Signs Temp Pulse Resp BP Pulse Ox 07/11/17 18:18 98.6 F 72 16 126/84 99 07/11/17 17:17 68 18 112/68 97 07/11/17 15:25 71 18 110/65 97 07/11/17 13:40 75 18 108/69 97 07/11/17 12:32 79 18 106/60 97 07/11/17 11:03 86 18 104/58 L 97 07/11/17 09:11 98.0 F 90 18 102/50 L 97 Temperature: Afebrile Blood Pressure: Hypotensive Pulse: Regular Respiratory Rate: Normal Appearance: Positive for: Well-Appearing, Other (uncomfortable, resting in bed, alert/awake, mild distress due to pain/aches, cooperative, follows command with ease, GCS = 15, oriented x 3) Pain Distress: Mild Mental Status: Positive for: Alert and Oriented X 3 - Systems Exam Head: Present: Atraumatic, Normocephalic Pupils: Present: PERRL, Other (no photophobia, sclera anicteric, no nystagmus, visual field intact b/l) Extroacular Muscles: Present: EOMI Conjunctiva: Present: Other (slight pallor noted, no icterus; no fb/masses/ lesions noted) Ears: Present: Normal Mouth: Present: Dry, Normal Teeth, Other (uvula/tongue are midline, no dysphonia , no drooling/stridor, intact dentitions; + dry oral mucosa) Pharnyx: Present: Normal Nose (External): Present: Atraumatic Nose (Internal): Present: Normal Inspection Neck: Present: Normal Range of Motion, Trachea Midline, Other (right anterior neck surg wound/chronic; no midline tenderness, no step off, no meningeal signs , intact ROM) Respiratory/Chest: Present: Clear to Auscultation, Good Air Exchange, Other ( CTA b/l, no w/r/r, no tachypenia). No: Respiratory Distress, Accessory Muscle Use Cardiovascular: Present: Regular Rate and Rhythm, Normal S1, S2. No: Murmurs Abdomen: Present: Normal Bowel Sounds, Other (well nourished female, no focal tenderness, diffuse abd discomfort noted; no olivares's sign, no mcburneys' point tenderness, no masses/rebound/guarding/rigidity) Rectal: Present: Hemorrhoids, Normal Rectal Tone, Other (NEGATIVE GUAIC). No: Occult Blood, Rectal Tenderness, Gross Blood, Melena Back: Present: Normal Inspection. No: CVA Tenderness, Midline Tenderness Upper Extremity: Present: Normal Inspection, Normal ROM, NORMAL PULSES, Neurovascularly Intact Lower Extremity: Present: Normal Inspection, NORMAL PULSES, Neurovascularly Intact Neurological: Present: GCS=15, CN II-XII Intact, Speech Normal, Other (no facial asymmetries, NIH stroke scale ~ 0) Skin: Present: Warm, Dry, Other (cap refill ~ 1sec, no ulcerations, no petechiae ; no lesions, + pallor noted) Psychiatric: Present: Alert, Oriented x 3 Medical Decision Making ED Course and Treatment: 07/11/17 0935 Impression: weakness, lightheadedness, body aches i have consider all the differential diagnosis regarding pt's chief medical complaints/clinical findings, including but are not limited to: r/o flu, r/o infxn, r/o dehydration A/P: weakness - labs - iv - xray - ua - observe - supportive care 07/11/17 1145 pt continues to feel very weak and fatigued pt states diffuse body pain 13:15 pt states she is not nauseous pt denied any improvements otherwise pt denied sob/lightheadedness mild diffuse chest aches pt is made aware of her medical results pt agrees with admission Spoke to Dr Jade, and is made aware 07/11/17 13:47 Discussed case in detail with Dr. Jade, med service on-call, who was made aware of the patient's presentation in the Emergency department and agrees with the admission. Suggests prescribing Tamiflu and will see the patient in the Emergency department. Re-evaluation Time: 13:33 Reassessment Condition: Improving,but remains with symptoms - Lab Interpretations Lab Results: 07/11/17 09:30 07/11/17 12:20 Lab Results 07/11/17 12:20: Sodium 142, Potassium 3.3 L, Chloride 107, Carbon Dioxide 29, Anion Gap 10, BUN 17, Creatinine 0.8, Est GFR ( Amer) > 60, Est GFR (Non- Af Amer) > 60, Random Glucose 87, Calcium 8.8, Total Bilirubin 0.1 L, AST 39 H, ALT 42, Alkaline Phosphatase 30 L, Troponin I < 0.01, Total Protein 6.2, Albumin 3.2, Globulin 3.0, Albumin/Globulin Ratio 1.1, Lipase 152 07/11/17 11:40: Sodium Cancelled, Potassium Cancelled, Chloride Cancelled, Carbon Dioxide Cancelled, Anion Gap Cancelled, BUN Cancelled, Creatinine Cancelled, Est GFR ( Amer) Cancelled, Est GFR (Non-Af Amer) Cancelled, Random Glucose Cancelled, Calcium Cancelled, Total Bilirubin Cancelled, AST Cancelled, ALT Cancelled, Alkaline Phosphatase Cancelled, Troponin I Cancelled, Total Protein Cancelled, Albumin Cancelled, Globulin Cancelled, Albumin/ Globulin Ratio Cancelled, Lipase Cancelled 07/11/17 10:00: Blood Type A POSITIVE, Antibody Screen Negative, BBK History Checked Patient has bt 07/11/17 09:38: Urine Color Yellow, Urine Appearance Clear, Urine pH 6.0, Ur Specific [place] 1.025, Urine Protein Trace H, Urine Glucose (UA) Negative, Urine Ketones Trace H, Urine Blood Negative, Urine Nitrate Negative, Urine Bilirubin Negative, Urine Urobilinogen 0.2, Ur Leukocyte Esterase Negative, Urine RBC Negative, Urine WBC 0 - 2, Ur Epithelial Cells 1 - 3, Urine Bacteria Few 07/11/17 09:30: Influenza Typ A,B (EIA) Pos for influenza a H 07/11/17 09:30: PT 11.6, INR 1.01, APTT 44.6 H 07/11/17 09:30: WBC 3.8 L, RBC 3.43 L, Hgb 8.0 L, Hct 26.7 L, MCV 77.8 L, MCH 23.3 L, MCHC 30.0 L, RDW 18.3 H, Plt Count 349, MPV 9.4, Gran % 53.5, Lymph % ( Auto) 38.6 H, [place] % (Auto) 4.2, Eos % (Auto) 2.4, Baso % (Auto) 1.3, Gran # 2.04, Lymph # (Auto) 1.5, [place] # (Auto) 0.2, Eos # (Auto) 0.1, Baso # (Auto) 0.05 I have reviewed the lab results: Yes Interpretation: Abnormal lab values (decr h/h; decr K) - RAD Interpretation Narrative RAD Interpretations (Text): 07/11/17 13:33 NAD Radiology Orders: 07/11/17 09:26 CHEST TWO VIEWS (PA/LAT) [RAD] Stat [employer] Sales Representative: ED Physician - EKG Interpretation EKG Interpretation (Text): 07/11/17 13:33 NSR at 75 bpm, normal axis, no ectopy, diffuse low voltage, non-specific st-t changes, ABNL EKG; no gross changes compare with old ekg 05/2015 Interpreted by ED Physician: Yes Type: 12 lead EKG Comparison: Similar to previous EKG - Medication Orders Current Medication Orders: Acetaminophen (Tylenol 325mg Tab) 650 mg PO Q6H PRN PRN Reason: fever or pain Famotidine (Pepcid) 40 mg PO HS KATHY Dextrose/Sodium Chloride (Dextrose 5%/0.45% Ns 1000 Ml) 1,000 mls @ 100 mls/hr IV .Q10H KATHY Levothyroxine Sodium (Synthroid) 175 mcg PO 0600 KTAHY Ondansetron HCl (Zofran Inj) 4 mg IVP Q6H PRN PRN Reason: Nausea/Vomiting Oseltamivir Phosphate (Tamiflu Cap) 75 mg PO BID KATHY PRN Reason: Protocol Discontinued Medications Famotidine (Pepcid 20mg/50ml Premix) 20 mg in 50 mls @ 100 mls/hr IVPB STAT STA Stop: 07/11/17 09:56 Last Admin: 07/11/17 09:51 Dose: 100 mls/hr eMAR Start Stop Document 07/11/17 09:51 EQ (Rec: 07/11/17 09:51 EQ [id number]) Intravenous Solution Start Date 07/11/17 Start Time 09:51 Sodium Chloride (Sodium Chloride 0.9%) 1,000 mls @ 999 mls/hr IV .Q1H1M STA Stop: 07/11/17 10:27 Last Admin: 07/11/17 09:51 Dose: 999 mls/hr eMAR Start Stop Document 07/11/17 09:51 EQ (Rec: 07/11/17 09:51 EQ [id number]) Intravenous Solution Start Date 07/11/17 Start Time 09:51 Ketorolac Tromethamine (Toradol) 30 mg IVP STAT STA Stop: 07/11/17 13:00 Last Admin: 07/11/17 13:26 Dose: 30 mg MAR Pain Assessment Document 07/11/17 13:26 EQ (Rec: 07/11/17 13:26 EQ [id number]) Pain Reassessment Is this a pain reassessment? No Sleep Is patient sleeping during reassessment? No Presence of Pain Presence of Pain Yes IVP Administration Document 07/11/17 13:26 EQ (Rec: 07/11/17 13:26 EQ [id number]) Charges for Administration # of IVP Administrations 1 Ondansetron HCl (Zofran Inj) 4 mg IVP STAT STA Stop: 07/11/17 09:28 Last Admin: 07/11/17 09:51 Dose: 4 mg IVP Administration Document 07/11/17 09:51 EQ (Rec: 07/11/17 09:51 EQ [id number]) Charges for Administration # of IVP Administrations 1 Oseltamivir Phosphate (Tamiflu Cap) 75 mg PO ONCE ONE PRN Reason: Protocol Stop: 07/11/17 13:52 Last Admin: 07/11/17 14:23 Dose: 75 mg Potassium Chloride (Klor-Con 10) 10 meq PO STAT STA Stop: 07/11/17 13:01 Last Admin: 07/11/17 13:26 Dose: 10 meq Disposition/Present on Arrival - Present on Arrival Any Indicators Present on Arrival: No History of DVT/PE: No History of Uncontrolled Diabetes: No Urinary Catheter: No History of Decub. Ulcer: No History Surgical Site Infection Following: None - Disposition Have Diagnosis and Disposition been Completed?: Yes Diagnosis: Anemia, Dehydration, Influenza, Weakness Disposition: HOSPITALIZED Disposition Time: 14:00 Patient Plan: Admission Condition: STABLE
[2017-07-11 09:54] LABS: URINE BILIRUBIN NEGATIVE (NEGATIVE); URINE BLOOD NEGATIVE (NEGATIVE); URINE GLUCOSE (UA) NEGATIVE (NEGATIVE); URINE LEUKOCYTE ESTERASE NEGATIVE Leu/uL (NEGATIVE); URINE PROTEIN TRACE mg/dL (<30 mg/dL); URINE UROBILINOGEN 0.2 E.U./dL (<1 E.U./dL)
[2017-07-11 09:54] LABS: BASO # 0.05 K/mm3 (0.0-2.0); BASO % 1.3 % (0.0-3.0); EOS # 0.1 (0.0-0.7); EOS % 2.4 % (1.5-5.0); GRAN # 2.04 (1.4-6.5); GRAN % 53.5 % (50.0-68.0); LYMPH # 1.5 (1.2-3.4); LYMPH % 38.6 % (22.0-35.0); MEAN CELL VOLUME 77.8 fl (80.0-105.0); MEAN CORPUSCULAR HEMOGLOBIN 23.3 pg (25.0-35.0); MEAN PLATELET VOLUME 9.4 fl (7.0-11.0); MONO # 0.2 (0.1-0.6); MONO % 4.2 % (1.0-6.0); RBC 3.43 10^6/uL (3.5-6.1); RED CELL DISTRIBUTION WIDTH 18.3 % (11.5-14.5); WHITE BLOOD COUNT 3.8 10^3/ul (4.5-11.0)
[2017-07-11 09:59] LABS: URINE APPEARANCE CLEAR (CLEAR); URINE COLOR YELLOW (YELLOW)
[2017-07-11 10:06] LABS: INR 1.01 (0.93-1.08); PARTIAL THROMBOPLASTIN TIME 44.6 Seconds (25.1-36.5); PROTHROMBIN TIME 11.6 SECONDS (9.4-12.5)
[2017-07-11 10:08] LABS: URINE BACTERIA FEW (NEG); URINE RBC NEGATIVE /hpf (0-2); URINE WBC 0 - 2 /hpf (0-6)
[2017-07-11 12:45] LABS: ALB/GLOB RATIO 1.1 (1.1-1.8); ALBUMIN 3.2 g/dL (3.0-4.8); ALT/SGPT 42 U/L (7-56); AST/SGOT 39 U/L (14-36); BLOOD UREA NITROGEN 17 mg/dL (7-21); CALCIUM 8.8 mg/dL (8.4-10.5); GFR AFRICAN-AMERICAN > 60; GFR NON-AFRICAN AMERICAN > 60; LIPASE 152 U/L (23-300)
[2017-07-11 12:55] LABS: TROPONIN I < 0.01 ng/mL
[2017-07-11] MEDS ORDERED: Potassium Chloride 10 mEq ER Tab PO STA (13:00)
--- NOTE | 2017-07-11 13:39 | RAD ---
HISTORY: weakness COMPARISON: Comparison is made to the previous study dated 06/07/2015 TECHNIQUE: Chest PA and lateral FINDINGS: LUNGS: No active pulmonary disease. PLEURA: No significant pleural effusion identified. No pneumothorax apparent. CARDIOVASCULAR: Normal. OSSEOUS STRUCTURES: No significant abnormalities. VISUALIZED UPPER ABDOMEN: Normal. OTHER FINDINGS: Surgical clips are seen at the epigastric region. IMPRESSION: No evidence of acute pulmonary disease.
[2017-07-11 20:01] LABS: TOTAL IRON BINDING CAPACITY 327 ug/dL (265-497)
[2017-07-11 20:06] LABS: IRON 10 ug/dL (45-180)
[2017-07-11 20:08] LABS: % IRON SATURATION 3 % (20-55)
[2017-07-11 20:09] LABS: T4 < 0.4 ug/dL (5.5-11.0)
[2017-07-11] MEDS: Dextrose 5%/0.45% NS 1,000 ML IV SCH (21:37)
--- NOTE | 2017-07-12 04:39 | HP ---
DATE OF EXAM: 07/11/2017. HISTORY OF PRESENT ILLNESS: This 37-year-old female was examined in the emergency room at the [facility], where she is being admitted for influenza A, dehydration, near syncope, and pronounced anemia. This case was reviewed with the patient and family at her bedside as well as Dr. Jovani Garcia, emergency room physician. The patient presented with a 1 to 2 weeks history of worsening weakness associated with nausea, vomiting, diarrhea over the past week and decreased appetite and vomiting for the past day. The patient states she felt extremely dizzy, weak, lightheaded and came to the emergency room for evaluation of the above. There she was noted to have a pronounced anemia and is being admitted for further treatment of the above as well as influenza A positive serology. 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 Ashton, Oncology, in [place], [place]. The patient also has a history of iron-deficiency anemia in her past that had required iron infusions and iron supplementation. However, she states she has taken none in the past 1 year. She has a history of peptic ulcer disease with GERD, and is status post C-sections and blood transfusions in her past. She is also status post a gastric bypass surgery approximately 1 year ago. SOCIAL HISTORY: Is a former smoker, social drinker. Denies IV drug misuse, but does use occasional marijuana. OUTPATIENT MEDICATIONS: According to the patient included Synthroid 175 mcg p.o. daily. FAMILY HISTORY: Noncontributory. Mother has thalassemia, and is alive and well. ALLERGIES: SHE HAS NO KNOWN ALLERGIES TO MEDICATIONS. REVIEW OF SYSTEMS: HEAD: No headache or seizure. EYES: No change in visual acuity. EARS: No hearing loss. THROAT: No swallowing difficulty. 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 CARDIAC: No knowledge of coronary artery disease or cardiac issues. PULMONARY: No cough. No hemoptysis. GASTROINTESTINAL: As per HPI. GENITOURINARY: No dysuria. SKIN: No rash. VASCULAR: No claudication. PSYCHOLOGICAL: No depression. NEUROLOGICAL: No knowledge of stroke or seizure. PHYSICAL EXAMINATION: VITAL SIGNS: Temperature 98, respirations 18, pulse 75, blood pressure 108/69. Pulse ox 97% room air. She was in a normal sinus rhythm on the supervisor instrument mechanics. HEENT: Head normocephalic, atraumatic. Eyes: No icterus. Ears: Clear. Throat: Noninjected. NECK: Supple. HEART: Regular S1, S2. LUNGS: Clear. ABDOMEN: Soft, nontender. No palpable organomegaly. No rebound, no guarding. No tenderness. EXTREMITIES: No edema. SKIN: Without rash. NEUROLOGICAL: Markedly deconditioned. VASCULAR: Legs warm to touch. PSYCHOLOGICAL: Alert and oriented x3. LABORATORY DATA: White count 3800, hemoglobin 8, hematocrit 26.7, MCV 77.8, platelets 349,000. PT/INR 1.01, PTT 44.6. Sodium 142, K 3.3, chloride 107, bicarb 29, BUN 17, creatinine 0.8, random blood sugar 87. Bilirubin 0.1, AST 39, ALT 42, alk phos 30. Troponin less than 0.01. Lipase 152, normal. Urinalysis showed trace ketones, few bacteria, no red blood cells per high-power field. Influenza serology was positive for influenza A. Chest x-ray was reviewed. It showed no pneumothorax, no pleural effusions, no obvious infiltrates and essentially showed no acute pulmonary active disease. IMPRESSION: A 37-year-old female with acute influenza A, deconditioning, hypokalemia secondary to vomiting and diarrhea, with pronounced anemia, history of iron-deficiency anemia in the past, history of hypothyroidism status post thyroidectomy for papillary cell carcinoma in the distant past, now with dehydration, deconditioning as well as positive influenza A. PLAN: As discussed with the patient, family and Dr. Jovani Garcia from the Emergency Room, will be to admit this patient to the cardiac unit where she is ordered to have a heart-healthy diet as tolerated and Zofran 4 mg IV q. 6 hours p.r.n. nausea, vomiting; Tylenol 650 mg p.o. q. 6 hours p.r.n. pain or temperature greater than 101; Tamiflu 75 mg p.o. b.i.d.; Synthroid 175 mcg p.o. daily; Pepcid 40 mg p.o. bedtime. The patient was supplemented with potassium chloride 10 mEq p.o. x1 dose and is ordered to receive D5 0.45 saline at 100 mL/hour. She is ordered to have blood and urine cultures. A repeat CBC with differential and comprehensive metabolic panel has been ordered for the a.m. as well as vitamin B12 levels, TSH and T4 level, iron and TIBC levels, folic acid and ferritin levels. Consultation with Dr. Sundeep Gifford from Hematology/Oncology has been requested for further evaluation of her severe anemia. Of note, the patient did have a rectal exam done by Dr. Jovani Garcia in the ER and it was guaiac-negative. All of the above was discussed in detail with the patient, emergency room physician and family. Greater than 75 minutes was spent in the care management, review of labs, orders, x-rays and medication for this patient. All questions were answered. Rosie Jade MD MTDD
[2017-07-12] MEDS: Dextrose 5%/0.45% NS 1,000 ML IV SCH ×3 (05:23→19:46)
[2017-07-12] MEDS: Levothyroxine 175 MCG TAB PO SCH (05:27)
[2017-07-12 06:40] LABS: ALB/GLOB RATIO 1.1 (1.1-1.8); ALBUMIN 3.1 g/dL (3.0-4.8); ALT/SGPT 45 U/L (7-56); AST/SGOT 41 U/L (14-36); BASO # 0.05 K/mm3 (0.0-2.0); BASO % 1.2 % (0.0-3.0); BLOOD UREA NITROGEN 17 mg/dL (7-21); CALCIUM 8.3 mg/dL (8.4-10.5); EOS # 0.1 (0.0-0.7); EOS % 2.4 % (1.5-5.0); GFR AFRICAN-AMERICAN > 60; GFR NON-AFRICAN AMERICAN > 60; GRAN # 1.84 (1.4-6.5); GRAN % 44.7 % (50.0-68.0); LYMPH # 1.9 (1.2-3.4); LYMPH % 46.1 % (22.0-35.0); MEAN CELL VOLUME 77.8 fl (80.0-105.0); MEAN CORPUSCULAR HEMOGLOBIN 23.2 pg (25.0-35.0); MEAN CORPUSCULAR HGB CONC 29.8 g/dl (31.0-37.0); MEAN PLATELET VOLUME 9.4 fl (7.0-11.0); MONO # 0.2 (0.1-0.6); MONO % 5.6 % (1.0-6.0); RBC 3.02 10^6/uL (3.5-6.1); WHITE BLOOD COUNT 4.1 10^3/ul (4.5-11.0)
--- NOTE | 2017-07-12 10:45 | CARD ---
APPROVED REPORT EKG Measurement Heart [id number] <Conclusion> Normal sinus rhythm Low voltage QRS NSSTW changes, new
[2017-07-12 13:52] LABS: FERRITIN 3.5 ng/mL
[2017-07-12 14:22] LABS: FOLATE 8.6 ng/mL
[2017-07-12] MEDS: Potassium Chloride 20 mEq ER Tab PO SCH ×2 (14:31→18:17)
--- NOTE | 2017-07-12 17:00 | CON ---
DATE: HISTORY OF PRESENT ILLNESS: This is a 37-year-old woman with multiple medical problems. She is coming now with weakness, little tiredness and also generalized body pains. PHYSICAL EXAMINATION: SKIN: No petechiae. No bruises. HEENT: Anicteric. NODES: Nonpalpable in axillary, cervical, supraclavicular, or inguinal regions. LUNGS: Clear at present. No vertebral tenderness. The patient is able to lie flat in bed. HEART: S1 and S2. ABDOMEN: Shows no liver, no spleen, no tenderness. EXTREMITIES: No edema. CENTRAL NERVOUS SYSTEM: No focal findings. Patient has several medical problems: She has a hemoglobin of 7 with an MCV of 77. Her iron saturation is 3%. She has had a gastric bypass surgery in the past. She also used to get IV iron infusion. She said she has no change in her bowels in terms of bleeding, melena or change in mental status; however, I would at some point recommend colonoscopy,endoscopy. But in the meantime, I will give her Venofer IV infusion daily for the next 3 days if she allows it. She says she wants a blood transfusion, but I do not see any chest pain or severe shortness of breath and we will go along with the IV for now. The other thing is, her TSH is 136 with a very low T4. She has severe hypothyroidism which may explain her pain situation. It is unclear to me whether she is on any Synthroid or who is following her for this. She really could not explain that to me. She did have a papillary carcinoma of the thyroid that was resected. Dr. Ashton is seeing her for that. It is not clear to me who is taking care of her hypothyroidism. Finally, the PTT is 44. It is unclear as to whether she has an antibody, whether she has a serum factor deficiency. I ordered a serum factor XII, XI, IX and anti-lipid antibody and anticardiolipin antibodies. However, she has been refusing blood drawing. It is unclear if she will allow us to investigate this at this point. I think the main problem however is the hypothyroidism and she can either get a blood transfusion or the IV irons. I ordered the IV irons. Sundeep MD Balta
--- NOTE | 2017-07-12 19:35 | PN ---
DATE: 07/12/2017 SUBJECTIVE: This 37-year-old female was examined at her bedside and this case was reviewed in detail with herself, her family at the bedside, her nurse Tash, and Dr. Sundeep Gifford from Hematology/Oncology. When I evaluated the patient, she was in respiratory isolation, wearing a respiratory mask because of active influenza A. She was receiving IV iron and was evaluated by Dr. Gifford earlier this morning who had multiple recommendations including IV iron and after my telephone conversation with him, he is recommending packed red blood cell transfusion as well as a workup of an elevated PTT to determine whether she has an antibody or a serum factor deficiency. The patient remains markedly weak and deconditioned, lying in the bed, she was in a position and complaining of muscle aches and pains in the setting of clinical influenza A. At present, her monitor shows normal sinus rhythm and she denied any active fever, chills, chest pain, hematemesis, or melena. PHYSICAL EXAMINATION: VITAL SIGNS: Her temperature was 97.8, respirations 20, pulse of 57, and blood pressure 110/71 with a pulse ox of 100% on room air. HEENT: Head normocephalic, atraumatic. Eyes, no icterus. Ears, clear. Throat, noninjected. NECK: Supple. HEART: Regular S1, S2. LUNGS: With occasional rhonchi that cleared with coughing. ABDOMEN: Soft. EXTREMITIES: No edema. SKIN: Without rash. NEUROLOGICAL: Markedly deconditioned. VASCULAR: Legs warm to touch. PSYCHOLOGICAL: Mild anxiety. LABORATORY DATA: White count 4100, hemoglobin 7, hematocrit 23.5, platelets 278,000. PT/INR 1.01, PTT 44.6. Sodium 139, K 3.1, chloride 106, bicarb 26, BUN 17, creatinine 0.8, random blood sugar 90. Iron level low, 10; TIBC 327; percent saturation 3, low; ferritin 3.5, low. Bilirubin 0.1, AST 41, ALT 45, and alkaline phosphate 29. T4 less than 0.4. TSH elevated 136. B12, 679, normal. Folic acid 8.6, normal. Chest x-ray was reviewed. It showed no evidence of any active pulmonary disease. There were no infiltrates, no effusion, and no pneumothorax noted. EKG was reviewed. It showed normal sinus rhythm, nonspecific ST-T waves were noted. 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 Ashton, Oncology in [place], but was lost to follow up for the past year and also with history of iron-deficiency anemia in the setting of heavy menstrual cycles and the patient also had been advised in the past to take iron supplementation, which she has not done as well. Also, with hypokalemia and myalgias in the setting of influenza A. PLAN: As discussed with the patient, family, nursing, and Dr. Gifford will be to proceed with blood cell transfusion given her marked debilitation and markedly depressed hemoglobin as well as continuing IV iron infusions as outlined by Dr. Gifford to include Venofer 200 mg IV daily. She continues on D5, 0.45 saline at 100 mL/hour and was ordered to have potassium chloride 20 mEq p.o. t.i.d. for 1 day only and then to have a repeat basic metabolic panel in the a.m. She is scheduled for an antiphospholipid antibody panel, factor IX, factor XI, and factor XII activity, lupus anticoagulant evaluation, CBC next a.m. She is ordered to have blood and urine cultures. She will continue on Synthroid 175 mcg p.o. daily, Pepcid 40 mg p.o. at nighttime, Tamiflu 75 mg p.o. b.i.d., Tylenol 650 p.o. q. 6 hours p.r.n. pain or temperature greater than 101, and Zofran 4 mg IV q. 6 hours p.r.n. nausea, vomiting. She is ordered to have a heart-healthy diet, out of bed to chair as able, and all of the above was reviewed in detail with the patient, family, nursing, and Dr. Gifford from Hematology/Oncology. Greater than 35 minutes was spent in the care, management, and review of labs, orders, and x-rays for this patient today. All questions were answered. Rosie Jade MD [facility] # [id number] DAMIAN
[2017-07-13] MEDS: Dextrose 5%/0.45% NS 1,000 ML IV SCH ×3 (02:06→12:17)
[2017-07-13] MEDS: Levothyroxine 175 MCG TAB PO SCH (05:10)
[2017-07-13 06:27] LABS: MEAN CELL VOLUME 76.9 fl (80.0-105.0); MEAN CORPUSCULAR HEMOGLOBIN 22.7 pg (25.0-35.0); MEAN CORPUSCULAR HGB CONC 29.5 g/dl (31.0-37.0); MEAN PLATELET VOLUME 8.7 fl (7.0-11.0); RBC 2.95 10^6/uL (3.5-6.1); RED CELL DISTRIBUTION WIDTH 17.9 % (11.5-14.5); WHITE BLOOD COUNT 3.4 10^3/ul (4.5-11.0)
[2017-07-13 06:43] LABS: HEMOGLOBIN 6.7 g/dL (12.0-16.0)
[2017-07-13 07:13] LABS: BLOOD UREA NITROGEN 10 mg/dL (7-21); CALCIUM 8.2 mg/dL (8.4-10.5); GFR AFRICAN-AMERICAN > 60; GFR NON-AFRICAN AMERICAN > 60
[2017-07-13] MEDS: Potassium Chloride 20 mEq ER Tab PO SCH (10:34)
[2017-07-13] MEDS ORDERED: Potassium Chloride 20 mEq ER Tab PO ONE (11:51)
--- NOTE | 2017-07-13 20:37 | CP.PCM.PN ---
Subjective - Date & Time of Evaluation Date of Evaluation: 07/13/17 Time of Evaluation: 20:36 - Subjective Subjective: PGY-[address] Baker 37 F was admitted for influenza A, dehydration, near syncope, and pronounced anemia. Pt had a history of 2 weeks of worsening weakness, associated with nausea, vomiting, diarrhea over the past week with decrease PO intake and dizziness. She was found hypokalemic due to vomiting and diarrhea. Her Hb was 7 -8 at baseline. Today her Hb dropped to 6.7. She received 2 u pRBC, and IV Venofer. Then, the RN notified the house doc that pt has new onset diploplia of L eye, blurry vision of L eye, vomited once (non-bloody), and has headache but denies any fever or numbness of the limbs. Vital signs are normal. 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 (+) occasional marijuana use. Denies IV drug use FH: Thalassemia All: NKDA Med: Synthroid 175 mcg PO daily Protonix 40 daily Objective - Vital Signs/Intake and Output Vital Signs (last 24 hours): Temp Pulse Resp BP Pulse Ox 98.1 F 74 12 130/99 H 98 07/13/17 18:32 07/13/17 18:32 07/13/17 18:32 07/13/17 18:32 07/13/17 06:00 Intake and Output: 07/13/17 07/14/17 18:59 06:59 Intake Total 685 Balance 685 - Medications Medications: Current Medications Acetaminophen (Tylenol 325mg Tab) 650 mg PO Q6H PRN PRN Reason: fever or pain Last Admin: 07/13/17 05:10 Dose: 650 mg Famotidine (Pepcid) 40 mg PO HS KATHY Last Admin: 07/12/17 21:20 Dose: 40 mg Dextrose/Sodium Chloride (Dextrose 5%/0.45% Ns 1000 Ml) 1,000 mls @ 100 mls/hr IV .Q10H KATHY Last Admin: 07/13/17 12:17 Dose: Not Given Iron Sucrose 200 mg/ Sodium (Chloride) 110 mls @ 110 mls/hr IVPB DAILY [facility] Stop: 07/14/17 23:59 Last Admin: 07/13/17 18:25 Dose: 110 mls/hr Levothyroxine Sodium (Synthroid) 175 mcg PO 0600 [facility] Last Admin: 07/13/17 05:10 Dose: 175 mcg Ondansetron HCl (Zofran Inj) 4 mg IVP Q6H PRN PRN Reason: Nausea/Vomiting Last Admin: 07/13/17 19:39 Dose: 4 mg Oseltamivir Phosphate (Tamiflu Cap) 75 mg PO BID KTAHY PRN Reason: Protocol Last Admin: 07/13/17 17:22 Dose: 75 mg - Labs Labs: 07/13/17 06:00 07/13/17 16:10 PT 11.6 SECONDS (9.4-12.5) 07/11/17 09:30 INR 1.01 (0.93-1.08) 07/11/17 09:30 APTT 44.6 Seconds (25.1-36.5) H 07/11/17 09:30 - Constitutional Appears: No Acute Distress - Head Exam Head Exam: ATRAUMATIC, NORMAL INSPECTION, NORMOCEPHALIC - Eye Exam Eye Exam: EOMI, Normal appearance, PERRL. absent: Scleral icterus Pupil Exam: NORMAL ACCOMODATION Additional comments: Hx keratoconus of L eye - ENT Exam ENT Exam: Mucous Membranes Moist - Neck Exam Additional comments: supple - Respiratory Exam Respiratory Exam: Clear to Ausculation Bilateral, NORMAL BREATHING PATTERN - Cardiovascular Exam Cardiovascular Exam: REGULAR RHYTHM, +S1, +S2. absent: Murmur - GI/Abdominal Exam GI & Abdominal Exam: Soft, Normal Bowel Sounds. absent: Tenderness - Extremities Exam Extremities Exam: Normal Inspection. absent: Calf Tenderness, Pedal Edema - Neurological Exam Neurological Exam: Alert, Awake, Oriented x3 Additional comments: AAOx3 PERLLA, EOMI No facial asymmetry, speech not slurred Tongue in mid-line No Motor and sensory deficit. No cerebella ataxia - Psychiatric Exam Psychiatric exam: Normal Affect - Skin Skin Exam: Dry, Normal Color, Warm Assessment and Plan - Assessment and Plan (Free Text) Assessment: Blurry vision and diplopia of L eye Vomiting x 1, non-bloody Headache Plan: - CT head w/o contrast stat - repeat CBC to monitor Hb - Tylenol as needed for headache Addendem: CT head negative. s/r/d/w Dr. Baker
--- NOTE | 2017-07-13 22:11 | PN ---
DATE: 07/13/2017 SUBJECTIVE: This 37-year-old female was examined at her bedside on the cardiac unit and this case was reviewed in detail with herself and nurse, Niecy Cadena, registered nurse. The patient remains in respiratory isolation. She is being treated for active influenza A, severe anemia, iron deficiency with today's hemoglobin being 6.7 despite IV Venofer infusion. The patient is guaiac negative on rectal exam and denying any headache, chest pain, shortness of breath, hematemesis, or melena. The patient was seen in evaluation by Dr. Sundeep Gifford who has outlined orders including IV Venofer and the patient is in the process of receiving packed red blood cell transfusion. She denies any fevers, chills, chest pain, or shortness of breath. PHYSICAL EXAMINATION: GENERAL: She is in a normal sinus rhythm on the dental floss packer. VITAL SIGNS: Temperature 98.1, respirations 16, pulse 68, blood pressure 111/79, pulse ox 98% on room air. Urine output was not recorded. HEENT: Head: Normocephalic, atraumatic. Eyes: No icterus. Ears: Clear. Throat: Noninjected. NECK: Supple. HEART: Regular S1 and S2. LUNGS: Clear. ABDOMEN: Soft. EXTREMITIES: No edema. SKIN: Without rash. NEUROLOGICAL: Intact. PSYCHOLOGICAL: Alert. VASCULAR: Legs warm to touch. LABORATORY DATA: White count 3400, hemoglobin 6.7, hematocrit 22.7, platelets 257,000. PT/INR 1.01, PTT 44.6. Sodium 138, K 3.3, chloride 107, bicarb 24, BUN 10, creatinine 0.8. Random blood sugar was 92. Bilirubin 0.1, AST 41, ALT 45, alkaline phosphatase 29. T4 level less than 0.4. TSH 136, elevated. B12, 679; folic acid 8.6; iron level 10, low; percent saturation 3, low; ferritin 3.5, low. Urinalysis, few bacteria. Influenza positive for influenza A. Blood cultures show no growth at 24 hours. IMPRESSION AND PLAN: A 37-year-old female with active influenza A, currently on respiratory isolation with comorbidities of hypokalemia, recent gastrointestinal illness including diarrhea and vomiting causing hypokalemia and also with elevated PTT, rule out lupus anticoagulant, rule out antiphospholipid antibody, rule out factor VIII, XI, or XII activity deficiencies. Also, with longstanding history of iron-deficiency anemia in the setting of heavy menstrual cycles and a past medical history of thyroidectomy for papillary carcinoma of the thyroid and subsequent hypothyroidism with the patient noncompliant with medical followup for approximately one year. As discussed with the patient and nurse in detail, she will receive 3 units of packed red blood cells and is receiving D5, 0.45 saline at 100 mL per hour and has been medicated with potassium chloride and continues to receive IV Venofer 200 mg daily for a total of three doses as outlined. She continues with Pepcid 40 mg p.o. at bedtime, Synthroid 175 mcg p.o. daily, Tamiflu 75 mg p.o. b.i.d., Tylenol 650 p.o. q. 6 hours p.r.n. pain, and Zofran 4 mg IV q. 6 hours p.r.n. nausea, vomiting. She continues on a heart-healthy diet as tolerated. She is receiving blood products through her med- line. She is ordered to have a CBC repeated in the a.m. and urine culture remains pending. She will have potassium level repeated in a.m. as well and ultimate plan will be for the patient to schedule endoscopy and colonoscopy as outpatient when stable and to follow up with her medical imaging specialist/oncologist regarding followup of anemia, coagulopathy, thyroid cancer issues, and management of hypothyroidism. Previous oncologist was Dr. Ashton in [place], [place]. Greater than 35 minutes was spent in the care, management, review of labs, orders, and medications for this patient today and discussion of her case with Dr. Gifford, nursing, and the patient. All questions were answered. Rosie Jade MD [facility]
[2017-07-14 02:31] LABS: BASO # 0.05 K/mm3 (0.0-2.0); EOS # 0.1 (0.0-0.7); EOS % 1.5 % (1.5-5.0); GRAN # 3.65 (1.4-6.5); GRAN % 70.4 % (50.0-68.0); LYMPH # 1.2 (1.2-3.4); LYMPH % 22.9 % (22.0-35.0); MEAN CELL VOLUME 79.4 fl (80.0-105.0); MEAN CORPUSCULAR HEMOGLOBIN 24.6 pg (25.0-35.0); MEAN PLATELET VOLUME 9.1 fl (7.0-11.0); MONO # 0.2 (0.1-0.6); MONO % 4.2 % (1.0-6.0); RBC 3.54 10^6/uL (3.5-6.1); RED CELL DISTRIBUTION WIDTH 17.2 % (11.5-14.5); WHITE BLOOD COUNT 5.2 10^3/ul (4.5-11.0)
[2017-07-14 02:33] LABS: HEMOGLOBIN 8.7 g/dL (12.0-16.0)
[2017-07-14] MEDS: Levothyroxine 175 MCG TAB PO SCH (06:16)
[2017-07-14 08:23] LABS: HEMOGLOBIN 8.9 g/dL (12.0-16.0); MEAN CELL VOLUME 78.9 fl (80.0-105.0); MEAN CORPUSCULAR HEMOGLOBIN 24.7 pg (25.0-35.0); MEAN CORPUSCULAR HGB CONC 31.3 g/dl (31.0-37.0); MEAN PLATELET VOLUME 8.9 fl (7.0-11.0); RBC 3.6 10^6/uL (3.5-6.1); RED CELL DISTRIBUTION WIDTH 17.2 % (11.5-14.5); WHITE BLOOD COUNT 4.1 10^3/ul (4.5-11.0)
--- NOTE | 2017-07-14 09:06 | CT ---
PROCEDURE: CT HEAD WITHOUT CONTRAST. HISTORY: headache with diplopia, blurry vision COMPARISON: None available. TECHNIQUE: Axial computed tomography images were obtained through the head/brain without intravenous contrast. Radiation dose: Total exam DLP = 836 mGy-cm. This CT exam was performed using one or more of the following dose reduction techniques: Automated exposure control, adjustment of the mA and/or kV according to patient size, and/or use of iterative reconstruction technique. FINDINGS: HEMORRHAGE: No intracranial hemorrhage. BRAIN: No mass effect or edema. No atrophy or chronic microvascular ischemic changes. VENTRICLES: Unremarkable. No hydrocephalus. CALVARIUM: Unremarkable. PARANASAL SINUSES: Unremarkable as visualized. No significant inflammatory changes. MASTOID AIR CELLS: Unremarkable as visualized. No inflammatory changes. OTHER FINDINGS: The report concurs with the preliminary [facility] report IMPRESSION: Normal CT of the Head.
[2017-07-14] MEDS: Dextrose 5%/0.45% NS 1,000 ML IV SCH ×2 (10:07→12:20)
[2017-07-14] MEDS: Potassium Chloride 20 mEq ER Tab PO SCH ×2 (12:19→17:36)
[2017-07-14 14:44] LABS: B2 GLYCOPROTEIN I AB(IGA) <9 SAU (<=20); B2 GLYCOPROTEIN I AB(IGG) <9 SGU (<=20); B2 GLYCOPROTEIN I AB(IGM) <9 SMU (<=20); PHOSPHATIDYLSERINE AB IGA <20 U/mL (<20); PHOSPHATIDYLSERINE AB IGG <10 U/mL (<10); PHOSPHATIDYLSERINE AB IGM <25 U/mL (<25)
--- NOTE | 2017-07-14 15:20 | CON ---
DATE: 07/14/2017 NEUROLOGY CONSULTATION CHIEF COMPLAINT: Diplopia and headache. 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 intake and lightheadedness, found to have influenza type A flu, on Tamiflu, dehydrated, near syncope, and pronounced anemia with her hemoglobin dropped to 6.7 and she received 2 units of PRBCs. I was called for consult for new onset diplopia of the left eye in terms of blurry vision, no double vision, though the patient does have keratoconus. The blurry vision with a diffuse pressure headache, but no focal weakness or numbness of the extremities. Her CAT scan of the head showed no acute intracranial abnormalities. Currently, blurry vision is much less and her headache is much better. She has no focal neurological deficits on neuro exam. She does have keratoconus where she should see the visual field at baseline. She walks around without any difficulty. PAST MEDICAL HISTORY: Papillary cell carcinoma at age of 7, status post thyroidectomy, chronic iron deficiency anemia requiring iron transfusion supplement, peptic ulcer disease with GERD, history of migraines. PAST SURGICAL HISTORY: Gastric sleeve 2 years ago, . SOCIAL HISTORY: Former smoker. Social drinker. Occasional marijuana use. Denies any IV drug abuse. FAMILY HISTORY: Thalassemia. ALLERGIES: NO KNOWN DRUG ALLERGIES. MEDICATIONS: Reviewed by nurse's reconciliation sheet. REVIEW OF SYSTEMS: A 14-point review of systems is negative except in the HPI. PHYSICAL EXAMINATION: VITAL SIGNS: Temperature 99, pulse is 63, blood pressure 105/74, respiratory rate of 18, oxygen saturation 98% via room air. GENERAL: The patient is sitting up in bed, in no acute distress. HEENT: Head is atraumatic and normocephalic. PERRLA. Extraocular muscles intact. NECK: Supple. No JVD. No adenopathy noted. LUNGS: Clear to auscultation. No adventitious sounds. HEART: S1 and S2. Normal rate and rhythm. No murmur, rubs, or gallops. ABDOMEN: Soft, nontender, nondistended. Bowel sounds present. EXTREMITIES: No clubbing. No cyanosis. Peripheral pulses 2+ felt bilaterally. NEUROLOGIC: The patient is alert and oriented to person, place, month, and year. Speech is fluent without any errors. Cranial nerves II through XII are intact. She does have keratoconus on both eyes, mild blurry vision of the visual field, but no diplopia seen when eyes are covered individually by itself. Motor: Normal tone, normal bulk and muscle. Moves all extremities equally. No pronator drift seen. Strength is 5/5 in both upper and lower extremities. Sensory: Light touch, pinprick, proprioception, and vibration are intact. DTRs are 2+ throughout. Coordination: [id number] intact. Gait is normal. LABORATORY DATA: Sodium 138, potassium 3.2, chloride of 107, carbon dioxide 24, BUN of 10, creatinine 0.8, random glucose of 92. ASSESSMENT AND PLAN: This is a 37-year-old woman with history of papillary cell carcinoma at age of 7, status post thyroidectomy, chronic iron deficiency anemia requiring iron transfusion supplement, peptic ulcer disease with gastroesophageal reflux disease, history of gastric sleeve 2 years ago, presented with generalized weakness associated with nausea, vomiting, and diarrhea over the past week with decreased p.o. intake and lightheadedness and found to have also hemoglobin dropped to 6.7 and received 2 units of packed red blood cells and intravenous fluids, found to be dehydrated and found to have influenza type A positive, near syncope, and pronounced anemia. I was consulted for new onset diffuse pressure headache with left eye diplopia, blurry vision, superimposed underlying chronic keratoconus, which was diagnosed about 2 years ago. At this time, I feel like her whole constellation of symptoms is secondary to influenza type A, superimposed underlying dehydration causing a migraine phenomena, underlying keratoconus. At this time, we recommend: 1. Fioricet 1 tab p.o. q. 6 hours with acute onset of headache. 2. Continue with Tamiflu 75 mg p.o. b.i.d. for underlying influenza type A flu. 3. Monitor hemoglobin and get it corrected with iron infusion which is likely secondary to iron deficiency anemia. 3. Monitor electrolytes and correct accordingly. 4. Continue with IV hydration and she is clinically stable from neurological standpoint. Thank you for this consult. Jann Pimentel MD [facility] # [id number]
--- NOTE | 2017-07-14 17:12 | PN ---
DATE: 07/14/2017 SUBJECTIVE: This 37-year-old female was examined at the bedside in the presence of her family members and nurse, Niecy Cadena, registered nurse. The patient received 2 units of packed red blood cell transfusion yesterday. No further units of blood were available. At present, she remains alert without any shortness of breath, chest pain and is tolerating IV Venofer infusion. Of note, yesterday's hemoglobin of 6.7 is presently 8.9 and the patient is receiving IV Venofer without complaint. Earlier this morning, she complained of blurry double vision, had a CT of the head performed, which was reportedly negative. She is awaiting neurological evaluation with Dr. Jann Pimentel. She is currently in respiratory isolation with acute influenza A and has multiple comorbidities including history of papillary thyroid carcinoma at age 8, which required a complete thyroidectomy and has rendered the patient clinically hypothyroid with comorbid issues of anemia of iron deficiency. At present, the patient is alert and oriented x3. Denying any headache, fever, chills or chest pain or shortness of breath. PHYSICAL EXAMINATION: VITAL SIGNS: monitoring analyst normal sinus rhythm, temperature 99, respirations 18, pulse 63 and blood pressure 105/74 with pulse ox 98% on room air. HEENT: Head normocephalic, atraumatic. Eyes: No icterus. Ears: Clear. Throat: Noninjected. NECK: Supple. HEART: Regular S1, S2. LUNGS: Clear. ABDOMEN: Soft. EXTREMITIES: No edema. SKIN: Without rash. NEUROLOGICAL: Intact. PSYCHOLOGICAL Alert. VASCULAR: Legs warm to touch. LABORATORY DATA: White count 4100, hemoglobin 8.9, hematocrit 28.4, platelets 213,000. PT/INR 1.01, PTT 44.6. Lupus anticoagulant was not detected on serology testing. Today's potassium is 3.4, BUN 10, creatinine 0.8. Urinalysis showed few bacteria. Influenza A, B serology was positive for influenza A and blood culture shows no growth at 48 hours and urine culture showed no growth. IMPRESSION: A 37-year-old female with acute influenza A. Admitted with nausea, vomiting and an episode of nausea and vomiting yesterday with resultant hypokalemia and advanced iron-deficiency anemia, requiring IV Venofer infusion as well as blood cell transfusion with history of chronic hypothyroidism and noncompliance with medical followup in her past, status post thyroidectomy for papillary cell carcinoma as a child and now with blurred vision, rule out double vision. PLAN: As discussed with the patient, family and nursing will be to maintain the patient on the cardiac unit and she continues to receive IV Venofer infusion. She is awaiting neurological consultation by Dr. Jann Pimentel. She will continue with a repeat CBC panel in the a.m. She is to continue D5 0.45 saline at 70 mL/hour, Venofer 200 mg IV daily, potassium 40 mEq p.o. b.i.d., Pepcid 40 mg p.o. at bedtime, Synthroid 175 mcg p.o. daily, Tamiflu 75 mg p.o. b.i.d., Tylenol 650 p.o. every 6 hours p.r.n. pain or temperature greater than 101 and Zofran 4 mg IV every 6 hours p.r.n. nausea, vomiting. She is ordered to have a heart-healthy soft bland diet. She has been encouraged to walk in her room with assistance and ultimate plan will be for discharge to home with the patient following up with Hematology/Oncology and endocrinology regarding chronic issues of iron-deficiency anemia, papillary cell carcinoma in the distant past and chronic hypothyroidism. The patient was re-advised that she will need outpatient endoscopy and colonoscopy for completeness sake despite her age of 37 given her iron-deficiency anemia, most likely on the basis of her heavy menstrual cycles. Greater than 35 minutes was spent in the care and management, review of x-rays, labs and orders for this patient today as well as counseling for her and her family. All questions were answered. Rosie Jade MD [facility]
[2017-07-14 21:50] LABS: CARDIOLIPIN AB (IGA) <11 APL (<=11); CARDIOLIPIN AB (IGG) <14 GPL (<=14); CARDIOLIPIN AB (IGM) <12 MPL (<=12)
[2017-07-15] MEDS: Dextrose 5%/0.45% NS 1,000 ML IV SCH ×2 (06:25→18:25)
[2017-07-15] MEDS: Levothyroxine 175 MCG TAB PO SCH (06:25)
[2017-07-15 06:54] LABS: MEAN CELL VOLUME 79.7 fl (80.0-105.0); MEAN CORPUSCULAR HEMOGLOBIN 24.7 pg (25.0-35.0); MEAN PLATELET VOLUME 9.2 fl (7.0-11.0); RBC 3.64 10^6/uL (3.5-6.1); RED CELL DISTRIBUTION WIDTH 17.8 % (11.5-14.5); WHITE BLOOD COUNT 3.4 10^3/ul (4.5-11.0)
[2017-07-15 07:11] LABS: BLOOD UREA NITROGEN 6 mg/dL (7-21); CALCIUM 9.2 mg/dL (8.4-10.5); GFR AFRICAN-AMERICAN > 60; GFR NON-AFRICAN AMERICAN > 60
[2017-07-15] MEDS: Potassium Chloride 20 mEq ER Tab PO SCH (10:07)
[2017-07-15] MEDS: Potassium Chloride 40 MEQ in Dextrose 5%/0.45% NS 1,000 ML IV SCH (18:11)
--- NOTE | 2017-07-15 20:03 | PN ---
DATE: 07/15/2017 SUBJECTIVE: This 37-year-old female was examined on the cardiac sierra where she remains in respiratory isolation with acute influenza A. This case was reviewed in detail with her nurse, Inez Malcolm. The patient remains alert, oriented, and cooperative with this interview. She remains in a normal sinus rhythm on the wool grader. She denied any fever, chills, chest pain, or shortness of breath. She was evaluated by Dr. Jann Pimentel from Neurology yesterday who feels her issue with blurred vision is secondary to her acute respiratory illness and has no foundation on a neurological issue. CT of the head was reviewed and showed no intracranial hemorrhage or changes and patient states that her blurred "questionable double vision" is resolved. PHYSICAL EXAMINATION: VITAL SIGNS: Her temperature was 98.3, respirations 20, pulse 75, and blood pressure 133/88 with a pulse ox of 98% in room air. HEENT: Head: Normocephalic, atraumatic. Eyes: No icterus. Ears: Clear. Throat: Noninjected. NECK: Supple. HEART: Regular S1, S2. LUNGS: Clear. ABDOMEN: Soft. EXTREMITIES: No edema. SKIN: Without rash. NEUROLOGICAL: Intact. PSYCHOLOGICAL: Alert and oriented x3. VASCULAR: Legs are warm to touch. LABORATORY DATA: White count 3400, hemoglobin 9, hematocrit 29, platelets 228,000. Chemistry: Sodium 139, K 3.7, chloride 106, bicarb 25, BUN 6, creatinine 0.8, random blood sugar 88. Influenza A serology is positive. IMPRESSION: This is a 37-year-old female with acute influenza A, comorbidities of iron-deficiency anemia, history of gastritis and gastroesophageal reflux disease, chronic hypothyroidism, history of papillary carcinoma as a child, treated with total thyroidectomy and also patient with history of loss to medical followup in her past for management of her hypothyroidism and iron-deficiency anemia and papillary cell carcinoma monitoring. PLAN: The plan at present will be to complete respiratory isolation and to continue on Tamiflu 75 mg p.o. b.i.d. She continues on Pepcid 40 mg p.o. at bedtime, D5 0.45 saline with 40 mEq of potassium/liter at 70 mL/hour, Synthroid 175 mcg daily, Zofran 4 mg IV every 6 hours p.r.n. nausea and vomiting, and Tylenol 650 mg p.o. every 6 hours p.r.n. pain or temperature greater than 101. At present, she is tolerating a heart-healthy diet and there have been no reports of diarrhea or vomiting today. I will ask Dr. Gifford to reevaluate the patient regarding her laboratory findings for elevated PTT in the setting of slightly low factor IX, XII activity levels. Of note, no lupus anticoagulant was noted. Patient has had no episodes of bruising or bleeding and hemoglobin remained stable for 24 hours after the completion of blood cell transfusion and IV Venofer. Patient will need outpatient monitoring with a superannuation funds manager/oncologist and signal repairer and will need a GI evaluation for endoscopy and colonoscopy. All of this has been reviewed in detail with the patient in the presence of nursing and her family. Greater than 35 minutes was spent in the care management, review of labs, x-ray orders, and medication for this patient today. All questions were answered. Rosie Jade MD MTDD
[2017-07-16] MEDS: Levothyroxine 175 MCG TAB PO SCH (05:24)
[2017-07-16 07:42] LABS: HEMOGLOBIN 10.4 g/dL (12.0-16.0)
[2017-07-16] MEDS: Potassium Chloride 40 MEQ in Dextrose 5%/0.45% NS 1,000 ML IV SCH (08:19)
[2017-07-16] MEDS ORDERED: Apap-Butalbital-Caffeine 325-50-40mg Tab PO PRN (18:00)
--- NOTE | 2017-07-16 20:33 | PN ---
DATE: 07/16/2017 SUBJECTIVE: This patient, a 37-year-old female, was examined at her bedside and this case was reviewed in detail with nurse, Inez Malcolm, registered nurse. This patient has completed respiratory isolation according to infection control and is feeling better except for recurrent headache. She will be seen in reevaluation by Dr. Jann Pimentel and he previously medicated her for migraine headache. PHYSICAL EXAMINATION: GENERAL: The patient denies fever, chills, chest pain or shortness of breath and remains in a normal sinus rhythm on the telemetry monitor. VITAL SIGNS: Temperature 97.5, respirations 20, pulse 58, blood pressure 100/67, pulse ox 98% on room air. HEENT: Head: Normocephalic, atraumatic. Eyes: No icterus. Ears: Clear. Throat: Noninjected. NECK: Supple. HEART: Regular S1, S2. LUNGS: Clear. ABDOMEN: Soft. EXTREMITIES: No edema. SKIN: Without rash. NEUROLOGIC: Intact. PSYCHOLOGIC: Alert. VASCULAR: Legs warm to touch. Urine culture shows no growth. Blood culture shows no growth. Hemoglobin 10.4, hematocrit 33.7, stable. Sodium 139, K 4.0, chloride 106, bicarb 25, BUN 6, creatinine 0.8, random blood sugar 88. Influenza A serology was positive on admission on 07/11/2017. Recent head CT showed no intracranial abnormalities, hemorrhage or infarct. IMPRESSION: This is a 37-year-old female with multiple medical problems including influenza A, history of iron-deficiency anemia, history of papillary thyroid cancer as a child, treated with complete thyroidectomy and resulting with hypothyroidism, with patient being noncompliant with medical followup in her past. PLAN: At present, will be to continue heart-healthy soft bland diet, Zofran 4 mg IV every 6 hours p.r.n. nausea and vomiting, Tamiflu 75 mg p.o. b.i.d., Synthroid 175 mcg p.o. daily, Pepcid 40 mg p.o. at bedtime, Fioricet 1 tablet p.o. every 4 hour p.r.n. severe headache as per Dr. Jann Pimentel. The patient will be ambulated with hopeful plans for discharge in a.m. with the patient to follow up with Dr. Sundeep Gifford from hematology regarding her hematological issues including iron-deficiency anemia treated with blood cell transfusion and IV Venofer as well as elevated PTT on admission with slightly low levels of factor IX and XI noted on his requested testing of unclear importance. The patient will be given copies of these reports to follow with Dr. Gifford as an outpatient and will be referred to endocrinology for further management of her hypothyroidism. Greater than 35 minutes was spent in the care management, review of labs, x-rays, orders and medications for this patient today. They were reviewed with nursing and herself. All questions were answered. Rosie Jade MD [facility]
[2017-07-17] MEDS: Levothyroxine 175 MCG TAB PO SCH (05:50)
[2017-07-17 09:48] VITALS: BP 130/81; PULSE 70; RESP 20; TEMP 97.5; O2SAT 99
--- NOTE | 2017-07-18 01:31 | DS ---
DATE OF EVALUATION; 07/17/2017. 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 Martini from Hematology is aware. She cleared the patient for discharge and advised the patient for office followup with herself within 1 week. DISCHARGE MEDICATIONS: Synthroid 175 mcg p.o. daily, ferrous gluconate 324 mg p.o. t.i.d., Fioricet 1 tablet p.o. b.i.d. p.r.n. headache #10, no refill and the patient was told to follow up with Dr. Martini/Balta, Hematology/Oncology within the next 5 days as well as given copies of her laboratories including her factor IX, XI and XII levels for her PTT elevation workup. Also the patient was given phone number for Dr. Rosie Goayl, Endocrinology for routine follow-up of chronic hypothyroidism and history of papillary thyroid cancer. She was advised she will need an smudger for medication adjustment for hypothyroidism status post thyroidectomy in the distant past. The patient was given the phone number for Dr. Jann Pimentel, Neurology regarding treatment of migraine headache. SUMMARY: This 37-year-old female was admitted to [facility] with nausea, vomiting, diarrhea, electrolyte imbalances, hypokalemia and acute influenza A on serologies. She was placed in respiratory isolation, found to have severe iron-deficiency anemia and was seen in consultation by Dr. Sundeep Gifford, who prescribed IV Venofer and agreed with orders for IV blood cell transfusion. The patient was also noted to have an elevated PTT level on admission for which he ordered lupus anticoagulant studies, which were unremarkable and the patient had slightly low factor IX level 56, normal 60 to 160; factor XI level 60, normal 65 to 150; and factor XII level 51, with normal 50 to 150. This was reviewed with Dr. Martini from Hematology who cleared the patient for discharge on 07/17/2017. LABORATORY DATA: At time of discharge, laboratory studies showed sodium 139, K 4.0, chloride 106, bicarb 25, BUN 6, creatinine 0.8, random blood sugar 88. Influenza A serology was positive at the time of admission on 07/11/2017. The patient completed a 5 day course of Tamiflu without incident. On discharge, the patient's white count was 3400, hemoglobin 10.4, hematocrit 33.7, platelets 228,000. Initial PT/INR was 1.01 with a PTT of 44.6. PLAN: The patient is discharged to home. She was completely independent in ambulation without any symptoms of shortness of breath or chest pain. It was previously advised that she will need endoscopy and colonoscopy by myself and Dr. Gifford for completeness sake of her iron deficiency anemia and should be evaluated by her freezer operator as well given her heavy menstrual cycle history. Greater than 35 minutes was spent in the discharge management of this patient today. All questions were answered in the presence of her nurse, Nuha Juares, registered nurse. The patient was given copies of her blood work for further review with Dr. Gifford and Vini from Hematology/Oncology and phone numbers for Dr. Goyal, Endocrinology and Dr. Jann Pimentel. All questions were answered. Rosie Jade MD DAMIAN
== END 2017-07-17 18:30 | disposition home or self-care (01) | DRG 194 ==
LOC: ED 09:01 → ERH 13:51 → 2RNO 18:34 → 5RNO 07-16 16:36
PROVIDERS: ADMIT Internal Medicine; ATTEND Internal Medicine
PROC: 30233N1 Transfusion of Nonautologous Red Blood Cells into Peripheral Vein, Percutaneous Approach (ICD-10-PCS; principal; 2017-07-13)
DX: J10.1 Influenza due to other identified influenza virus with other respiratory manifestations (principal); D68.9 Coagulation defect, unspecified; D50.9 Iron deficiency anemia, unspecified; E86.0 Dehydration; E87.6 Hypokalemia; F12.90 Cannabis use, unspecified, uncomplicated; E89.0 Postprocedural hypothyroidism; Z85.850 Personal history of malignant neoplasm of thyroid; Z83.2 Family history of diseases of the blood and blood-forming organs and certain disorders involving the immune mechanism; G43.909 Migraine, unspecified, not intractable, without status migrainosus; H18.609 Keratoconus, unspecified, unspecified eye; H53.2 Diplopia; K21.9 Gastro-esophageal reflux disease without esophagitis; Z78.9 Other specified health status; Z87.11 Personal history of peptic ulcer disease; Z87.891 Personal history of nicotine dependence; Z91.19 Patient's noncompliance with other medical treatment and regimen; Z98.84 Bariatric surgery status

== ENCOUNTER 2017-08-15 05:15 | Emergency (ER) | payer BC ==
[2017-08-15 05:31] VITALS: BMI 26.5
--- NOTE | 2017-08-15 05:39 | ED PDOC ---
Arrival/HPI - General Chief Complaint: Upper Extremity Problem/Injury Time Seen by Provider: 08/15/17 05:25 Historian: Patient - History of Present Illness Narrative History of Present Illness (Text): 08/15/17 05:37 37 year old female, whose past medical history includes thyroidectomy, gastric bypass surgery, anemia, transfusions, and Papillary Carcinoma of the thyroid ( remission), presents to the emergency department complaining of worsening pain to the left scapula area that began 2-3 days ago. Patient states she felt that she slept awkwardly on affected area. Denies any trauma. Patient states she has pain with any attempt of movement on the area. Patient denies any fever, chills , chest pain, shortness of breath, nausea, vomiting, diarrhea, urinary symptoms , back pain, neck pain, headache, dizziness, or any other complaints. Time/Duration: Other (2-3 days) Symptom Course: Worsening Activities at Onset: Light Context: Home Past Medical History - Provider Review Nursing Documentation Reviewed: Yes - Past History Past History: No Previous - Infectious Disease Hx of Infectious Diseases: None - Tetanus Immunization Tetanus Immunization: Unknown - Reproductive Menopause: No - Cardiac Hx Hypertension: Yes - Pulmonary Hx Respiratory Disorders: No - Neurological Hx Seizures: Yes (Childhood) - HEENT Hx HEENT Disorder: No - Renal Hx Renal Disorder: No - Endocrine/Metabolic Hx Hypothyroidism: Yes - Hematological/Oncological Hx Anemia: Yes - Integumentary Hx Dermatological Disorder: No - Musculoskeletal/Rheumatological Hx Falls: No - Gastrointestinal Hx Gastroesophageal Reflux: Yes - Genitourinary/Gynecological Hx Genitourinary Disorders: No - Psychiatric Hx Anxiety: Yes Hx Substance Use: No - Surgical History Hx Gastric Bypass Surgery: Yes - Anesthesia Hx Anesthesia: Yes Hx Anesthesia Reactions: No Hx Malignant Hyperthermia: No Family/Social History - Physician Review Nursing Documentation Reviewed: Yes Family/Social History: No Known Family HX Smoking Status: Former Smoker Hx Alcohol Use: Yes (social) Hx Substance Use: No Hx Substance Use Treatment: No Allergies/Home Meds Allergies/Adverse Reactions: Allergies No Known Allergies Allergy (Verified 08/15/17 05:34) Review of Systems - Physician Review All systems were reviewed & negative as marked: Yes - Review of Systems Constitutional: absent: Fevers, Other (Chills) Respiratory: absent: SOB Cardiovascular: absent: Chest Pain Gastrointestinal: absent: Diarrhea, Nausea, Vomiting Genitourinary Female: absent: Dysuria, Frequency, Hematuria Musculoskeletal: Other (left scapula pain). absent: Back Pain, Neck Pain Neurological: absent: Headache, Dizziness Physical Exam Vital Signs Reviewed: Yes Vital Signs Temp Pulse Resp BP Pulse Ox 08/15/17 06:16 98.0 F 54 L 18 137/40 L 100 08/15/17 05:31 97.4 F L 84 16 99 Temperature: Afebrile Blood Pressure: Normal Pulse: Regular Respiratory Rate: Normal Appearance: Positive for: Well-Appearing, Non-Toxic, Comfortable Pain Distress: None Mental Status: Positive for: Alert and Oriented X 3 - Systems Exam Head: Present: Atraumatic, Normocephalic Pupils: Present: PERRL Extroacular Muscles: Present: EOMI Conjunctiva: Present: Normal Mouth: Present: Moist Mucous Membranes Neck: Present: Normal Range of Motion Respiratory/Chest: Present: Clear to Auscultation, Good Air Exchange. No: Respiratory Distress, Accessory Muscle Use Cardiovascular: Present: Regular Rate and Rhythm, Normal S1, S2. No: Murmurs Abdomen: No: Tenderness, Distention, Peritoneal Signs Back: Present: Normal Inspection. No: Other (No dorsal spinal tenderness) Upper Extremity: Present: Normal ROM (FROM to upper exremities intact), Tenderness (Palpable tenderness to the left upper shoulder area), Neurovascularly Intact, Other (Discomfort to the left upper trapeziusal shoulder area with shoulder abduction. ). No: Cyanosis, Edema Lower Extremity: Present: Normal Inspection. No: Edema Neurological: Present: GCS=15, CN II-XII Intact, Speech Normal Skin: Present: Warm, Dry, Normal Color. No: Rashes Psychiatric: Present: Alert, Oriented x 3, Normal Insight, Normal Concentration Medical Decision Making ED Course and Treatment: 08/15/17 05:39 Impression: 37 year old female presents complaining of worsening pain to the left scapula area that began 2-3 days ago. Plan: -- Toradol -- Reassess and disposition Prior Visits: Notes and results from previous visits were reviewed. Patient was last seen in the emergency department on 07/11/17 presents complaining of progressively worsening weakness, intermittent nausea/vomiting ,and loose stool for the last week. Patient was admitted. Progress Notes: - RAD Interpretation Narrative RAD Interpretations (Text): Shoulder X-Ray- No acute process Radiology Orders: 08/15/17 06:31 SHOULDER LEFT [RAD] Stat Nursing Director: ED Physician - Medication Orders Current Medication Orders: Discontinued Medications Ketorolac Tromethamine (Toradol) 60 mg IM ONCE ONE Stop: 08/15/17 05:40 Last Admin: 08/15/17 05:46 Dose: 60 mg MAR Pain Assessment Document 08/15/17 05:46 TA (Rec: 08/15/17 05:47 TA [id number]) Pain Reassessment Is this a pain reassessment? No Sleep Is patient sleeping during reassessment? Yes Pain Scale Used Pain Scale Used Numeric Location Left, Right or Bilateral Left Pain Location Body Site Shoulder Description Description Sharp IM Administration Charges Document 08/15/17 05:46 TA (Rec: 08/15/17 05:47 TA [id number]) Charges for Administration # of IM Administrations 1 Tramadol HCl (Ultram) 50 mg PO STAT STA Stop: 08/15/17 06:32 Last Admin: 08/15/17 06:56 Dose: 50 mg MAR Pain Assessment Document 08/15/17 06:56 IT (Rec: 08/15/17 06:56 IT [id number]) Pain Reassessment Is this a pain reassessment? No Sleep Is patient sleeping during reassessment? No Presence of Pain Presence of Pain Yes Pain Scale Used Pain Scale Used Numeric - Scribe Statement The provider has reviewed the documentation as recorded by the Jerod Schulz Provider Scribe Attestation: All medical record entries made by the Jaydeibcaesar were at my direction and personally dictated by me. I have reviewed the chart and agree that the record accurately reflects my personal performance of the history, physical exam, medical decision making, and the department course for this patient. I have also personally directed, reviewed, and agree with the discharge instructions and disposition. Disposition/Present on Arrival - Present on Arrival Any Indicators Present on Arrival: No History of DVT/PE: No History of Uncontrolled Diabetes: No Urinary Catheter: No History of Decub. Ulcer: No History Surgical Site Infection Following: None - Disposition Have Diagnosis and Disposition been Completed?: Yes Diagnosis: Left shoulder tendinitis Disposition: HOME/ ROUTINE Disposition Time: 07:12 Patient Plan: Discharge Condition: GOOD Discharge Instructions (ExitCare): Tendonitis (DC) Additional Instructions: Take meds as prescribed/rest the affected area/follow up with your doctor this week/any worsening symptoms return to the emergency room Prescriptions: Naproxen [Naprosyn] 500 mg PO BID PRN #14 tab PRN Reason: Pain Tramadol HCl [Ultram] 50 mg PO Q6 PRN #16 tab PRN Reason: Pain, Moderate (4-7) Referrals: Hank Zapata, [Primary Care Provider] - Follow up with primary Kenji Calix DO [Staff Provider] - Follow up with primary Forms: [employer] (Russian)
[2017-08-15 06:17] VITALS: BP 137/40; PULSE 54; RESP 18; TEMP 98; O2SAT 100
--- NOTE | 2017-08-15 09:48 | RAD ---
PROCEDURE: Radiographs of the Left Shoulder HISTORY: Pain COMPARISON: No prior. FINDINGS: BONES: No evidence of acute displaced fracture nor dislocation. JOINTS: Normal. Glenohumeral and acromioclavicular joints preserved. No significant osteoarthritis. SOFT TISSUES: Normal. OTHER FINDINGS: None. IMPRESSION: Normal radiographs of the left shoulder.
== END 2017-08-15 07:23 | disposition home or self-care (01) ==
LOC: ED 05:15
DX: M77.8 Other enthesopathies, not elsewhere classified (principal)
CPT/HCPCS: 73030; 96372; 99284; J1885

== ENCOUNTER 2018-01-10 09:15 | Observation (INO) | payer BC ==
[2018-01-10] MEDS ORDERED: Sodium Chloride 0.9% 1,000 ML IV STA (09:53)
[2018-01-10] MEDS ORDERED: DiphenhydrAMINE 50 mg/ml Inj IVP STA (09:53)
--- NOTE | 2018-01-10 09:57 | ED PDOC ---
Arrival/HPI - General Time Seen by Provider: 01/10/18 09:39 Historian: Patient - History of Present Illness Narrative History of Present Illness (Text): 01/10/18 09:42 37 y/o female, pmh including anemia (heavy menstrual period)/hypothyroidism/gerd /migraine headache, nkda, c/o headache/dizziness and elevated liver enzymes? x 2 days. Pt. stated that she has history of elevated liver enzymes recently, been having chronic history of migraine headache which she has left sided unilateral headache about 2 days ago, associated with nausea and vomiting, throbbing, admits fatigue, stated that she called her pmd for help which told her to come to the ER. Pt. stated that she just doesn't feel well but can not properly discuss the specific complaints, admits using firiocet for migraine headache, no numbness or tingling, no other medical or psychological complaints. Past Medical History - Provider Review Nursing Documentation Reviewed: Yes - Past History Past History: No Previous - Infectious Disease Hx of Infectious Diseases: None - Tetanus Immunization Tetanus Immunization: Unknown - Reproductive Menopause: No - Cardiac Hx Hypertension: Yes - Pulmonary Hx Respiratory Disorders: No - Neurological Hx Seizures: Yes (Childhood) - HEENT Hx HEENT Disorder: No - Renal Hx Renal Disorder: No - Endocrine/Metabolic Hx Hypothyroidism: Yes - Hematological/Oncological Hx Anemia: Yes - Integumentary Hx Dermatological Disorder: No - Musculoskeletal/Rheumatological Hx Falls: No - Gastrointestinal Hx Gastroesophageal Reflux: Yes - Genitourinary/Gynecological Hx Genitourinary Disorders: No - Psychiatric Hx Anxiety: Yes Hx Substance Use: No - Surgical History Hx Gastric Bypass Surgery: Yes - Anesthesia Hx Anesthesia: Yes Hx Anesthesia Reactions: No Hx Malignant Hyperthermia: No Family/Social History - Physician Review Nursing Documentation Reviewed: Yes Family/Social History: Unknown Family HX Smoking Status: Former Smoker Hx Alcohol Use: Yes (social) Hx Substance Use: No Hx Substance Use Treatment: No Allergies/Home Meds Allergies/Adverse Reactions: Allergies No Known Allergies Allergy (Verified 08/15/17 05:34) Home Medications: Home Meds Medication Instructions Recorded Confirmed Levothyroxine [Synthroid] 1,200 mcg PO BID 01/10/18 01/10/18 Review of Systems - Review of Systems Constitutional: Fatigue. absent: Fevers Eyes: absent: Vision Changes ENT: absent: Hearing Changes Respiratory: absent: SOB, Cough Cardiovascular: absent: Chest Pain Gastrointestinal: Nausea, Vomiting. absent: Abdominal Pain Musculoskeletal: absent: Arthralgias, Back Pain Skin: absent: Rash, Pruritis Neurological: Headache. absent: Dizziness, Focal Weakness, Gait Changes, Speech Changes Hemo/Lymphatic: absent: Adenopathy Psychiatric: absent: Anxiety, Depression, Suicidal Ideation Physical Exam Vital Signs Reviewed: Yes Vital Signs Temp Pulse Resp BP Pulse Ox 01/10/18 10:27 66 18 106/69 100 01/10/18 09:35 98 F 98 H 18 95/67 L 100 Temperature: Afebrile Blood Pressure: Hypotensive Pulse: Regular Respiratory Rate: Normal Appearance: Positive for: Well-Appearing, Non-Toxic Pain Distress: Severe Mental Status: Positive for: Alert and Oriented X 3 - Systems Exam Head: Present: Atraumatic, Normocephalic Pupils: Present: PERRL Extroacular Muscles: Present: EOMI Conjunctiva: Present: Normal Ears: Present: NORMAL TM, Normal Canal. No: Erythema Mouth: Present: Moist Mucous Membranes Pharnyx: No: ERYTHEMA, EXUDATE, TONSILS ENLARGED Nose (External): Present: Atraumatic. No: Abrasion, Contusion, Laceration Nose (Internal): Present: Normal Inspection, No Active Bleeding. No: Rhinorrhea , Septal Hematoma, Epistaxis Neck: Present: Normal Range of Motion, Trachea Midline. No: Meningeal Signs, MIDLINE TENDERNESS, Paraspinal Tenderness Respiratory/Chest: Present: Clear to Auscultation, Good Air Exchange. No: Respiratory Distress, Accessory Muscle Use Cardiovascular: Present: Regular Rate and Rhythm, Normal S1, S2. No: Murmurs Abdomen: No: Tenderness, Distention, Peritoneal Signs, Rebound, Guarding Back: Present: Normal Inspection Upper Extremity: Present: Normal Inspection. No: Cyanosis, Edema Lower Extremity: Present: Normal Inspection. No: Edema Neurological: Present: GCS=15, CN II-XII Intact, Speech Normal, Motor Func Grossly Intact, Gait Normal, Memory Normal Skin: Present: Warm, Dry, Normal Color. 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 -CT Head: No acute intracranial abnormality. Mild age advanced global parenchymal volume loss. -Chest xray: No active disease. -Labs show no acute findings except hgb 8.5 from 10.4 (worsening anemia) -TSH 0.22 from 136, T4 4.06 -Acetaminophen/salicylate/alcohol/ammonia level: within normal limit -UA show +UTI, IV rocephine ordered -Infectious mono test ordered and would not be resulted today -Pt. feels better but still having pain, all labs and radiology results discussed with the patient, type and screen order, will admit the patient for observation, pt. request for admission to Dr. Jade's service 01/10/18 12:06 -I spoke to Dr. Jade over the phone, discussed about the case/labs/radiology results, will admit to her service and will see the patient in 2 hours. - Lab Interpretations Lab Results: 01/10/18 10:08 01/10/18 10:08 Lab Results 01/10/18 10:08: Free T4 4.06 H, TSH 3rd Generation 0.22 L, Beta HCG, Quant < 2.39, Alcohol, Quantitative < 10 01/10/18 10:08: WBC 3.3 L, RBC 3.49 L, Hgb 8.5 L, Hct 28.0 L, MCV 80.2, MCH 24.4 L, MCHC 30.4 L, RDW 17.1 H, Plt Count 261, MPV 9.0, Gran % 59.3, Lymph % ( Auto) 31.3, [place] % (Auto) 6.4 H, Eos % (Auto) 2.1, Baso % (Auto) 0.9, Gran # 1.93, Lymph # (Auto) 1.0 L, [place] # (Auto) 0.2, Eos # (Auto) 0.1, Baso # (Auto) 0.03 01/10/18 10:08: Salicylates < 1 L, Acetaminophen < 10.0 L 01/10/18 10:08: Ammonia 14 01/10/18 10:08: Sodium 142, Potassium 4.1, Chloride 106, Carbon Dioxide 27, Anion Gap 12, BUN 11, Creatinine 0.6 L, Est GFR ( Amer) > 60, Est GFR ( Non-Af Amer) > 60, Random Glucose 104, Calcium 9.1, Magnesium 2.0, Total Bilirubin 0.2, AST 34, ALT 16, Alkaline Phosphatase 48, Total Protein 7.3, Albumin 4.1, Globulin 3.2, Albumin/Globulin Ratio 1.3 01/10/18 10:08: Urine Color Yellow, Urine Appearance Cloudy, Urine pH 8.5, Ur Specific [place] 1.015, Urine Protein Trace H, Urine Glucose (UA) Negative, Urine Ketones Negative, Urine Blood Negative, Urine Nitrate Negative, Urine Bilirubin Negative, Urine Urobilinogen 0.2, Ur Leukocyte Esterase Small H, Urine RBC Negative, Urine WBC 1 - 3, Ur Epithelial Cells 4 - 5, Amorphous Sediment Small, Urine Bacteria Mod - RAD Interpretation Radiology Orders: 01/10/18 09:53 HEAD W/O CONTRAST [CT] Stat CHEST PORTABLE [RAD] Stat CT Head: Date of service: 01/10/2018 PROCEDURE: CT HEAD WITHOUT CONTRAST. HISTORY: Headache x 2 days, left side COMPARISON: 07/13/2017. TECHNIQUE: Axial computed tomography images were obtained through the head/brain without intravenous contrast. Radiation dose: Total exam DLP = 975.58 mGy-cm. This CT exam was performed using one or more of the following dose reduction techniques: Automated exposure control, adjustment of the mA and/or kV according to patient size, and/or use of iterative reconstruction technique. FINDINGS: HEMORRHAGE: No intracranial hemorrhage. BRAIN: Morse-white matter differentiation is preserved. There is no mass, mass effect or abnormal extra-axial fluid collection. There is no territorial infarction. The midline sagittal structures are normal. VENTRICLES: There is mild age advanced global parenchymal volume loss and proportionate enlargement of the ventricles and cortical sulci. CALVARIUM: The skull base and calvarium are normal. PARANASAL SINUSES: Predominantly clear. MASTOID AIR CELLS: Predominantly clear. OTHER FINDINGS: None. IMPRESSION: No acute intracranial abnormality. Mild age advanced global parenchymal volume loss. Chest xray: Date of service: 01/10/2018 HISTORY: medical clearanc COMPARISON: 07/11/2017 FINDINGS: LUNGS: No active pulmonary disease. PLEURA: No significant pleural effusion identified, no pneumothorax apparent. CARDIOVASCULAR: Normal. OSSEOUS STRUCTURES: No significant abnormalities. VISUALIZED UPPER ABDOMEN: Normal. OTHER FINDINGS: None. IMPRESSION: No active disease. 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 - Medication Orders Current Medication Orders: Discontinued Medications Diphenhydramine HCl (Benadryl) 50 mg IVP STAT STA Stop: 01/10/18 09:54 Last Admin: 01/10/18 10:29 Dose: 50 mg IVP Administration Document 01/10/18 10:29 GMD (Rec: 01/10/18 10:29 GMD [id number]) Charges for Administration # of IVP Administrations 1 Sodium Chloride (Sodium Chloride 0.9%) 1,000 mls @ 999 mls/hr IV .Q1H1M STA Stop: 01/10/18 10:53 Last Admin: 01/10/18 10:29 Dose: 999 mls/hr eMAR Start Stop Document 01/10/18 10:29 GMD (Rec: 01/10/18 10:29 GMD [id number]) Intravenous Solution Start Date 01/10/18 Start Time 10:29 End Date 01/10/18 End time 11:30 Total Infusion Time 61 Ceftriaxone Sodium (Rocephin 1 Gram Ivpb) 1 gm in 100 mls @ 200 mls/hr IVPB STAT STA PRN Reason: Protocol Stop: 01/10/18 11:33 Metoclopramide HCl (Reglan) 10 mg IVP STAT STA Stop: 01/10/18 09:54 Last Admin: 01/10/18 10:29 Dose: 10 mg IVP Administration Document 01/10/18 10:29 GMD (Rec: 01/10/18 10:30 GMD [id number]) Charges for Administration # of IVP Administrations 1 - PA / CLINICAL BIOSTATISTICIAN / Resident Statement MD/DO has reviewed & agrees with the documentation as recorded. Disposition/Present on Arrival - Present on Arrival Any Indicators Present on Arrival: No History of DVT/PE: No History of Uncontrolled Diabetes: No Urinary Catheter: No History of Decub. Ulcer: No History Surgical Site Infection Following: None - Disposition Have Diagnosis and Disposition been Completed?: Yes Diagnosis: Hyperthyroidism, Headache, Anemia, Fatigue Disposition: HOSPITALIZED Disposition Time: 12:00 Patient Plan: Admission, Observation Patient Problems: Current Active Problems Problem Status Onset Anemia Acute Fatigue Acute Headache Acute Hyperthyroidism Acute Condition: STABLE
[2018-01-10 10:39] LABS: BASO # 0.03 K/mm3 (0.0-2.0); BASO % 0.9 % (0.0-3.0); EOS # 0.1 (0.0-0.7); EOS % 2.1 % (1.5-5.0); GRAN # 1.93 (1.4-6.5); GRAN % 59.3 % (50.0-68.0); HEMOGLOBIN 8.5 g/dL (12.0-16.0); LYMPH % 31.3 % (22.0-35.0); MEAN CELL VOLUME 80.2 fl (80.0-105.0); MEAN CORPUSCULAR HEMOGLOBIN 24.4 pg (25.0-35.0); MEAN CORPUSCULAR HGB CONC 30.4 g/dl (31.0-37.0); MONO # 0.2 (0.1-0.6); MONO % 6.4 % (1.0-6.0); PH,URINE 8.5 (4.7-8.0); RBC 3.49 10^6/uL (3.5-6.1); RED CELL DISTRIBUTION WIDTH 17.1 % (11.5-14.5); URINE BILIRUBIN NEGATIVE (NEGATIVE); URINE BLOOD NEGATIVE (NEGATIVE); URINE GLUCOSE (UA) NEGATIVE (NEGATIVE); URINE LEUKOCYTE ESTERASE SMALL Leu/uL (NEGATIVE); URINE PROTEIN TRACE mg/dL (<30 mg/dL); URINE UROBILINOGEN 0.2 E.U./dL (<1 E.U./dL); WHITE BLOOD COUNT 3.3 10^3/ul (4.5-11.0)
[2018-01-10 10:42] LABS: URINE APPEARANCE CLOUDY (CLEAR); URINE COLOR YELLOW (YELLOW)
[2018-01-10 10:54] LABS: ALB/GLOB RATIO 1.3 (1.1-1.8); ALBUMIN 4.1 g/dL (3.0-4.8); ALT/SGPT 16 U/L (7-56); AST/SGOT 34 U/L (14-36); BLOOD UREA NITROGEN 11 mg/dL (7-21); CALCIUM 9.1 mg/dL (8.4-10.5); GFR NON-AFRICAN AMERICAN > 60
[2018-01-10 10:55] LABS: ACETAMINOPHEN < 10.0 ug/ml (10.0-20.0); SALICYLATE < 1 mg/dL (2.0-20.0)
[2018-01-10 11:01] LABS: URINE AMORPHOUS SEDIMENT SMALL; URINE BACTERIA MOD (NEG); URINE RBC NEGATIVE /hpf (0-2)
[2018-01-10] MEDS ORDERED: cefTRIAXone 1 gm 1 GM/100 ML BAG IVPB STA (11:04)
--- NOTE | 2018-01-10 11:13 | RAD ---
Date of service: 01/10/2018 HISTORY: medical clearanc COMPARISON: 07/11/2017 FINDINGS: LUNGS: No active pulmonary disease. PLEURA: No significant pleural effusion identified, no pneumothorax apparent. CARDIOVASCULAR: Normal. OSSEOUS STRUCTURES: No significant abnormalities. VISUALIZED UPPER ABDOMEN: Normal. OTHER FINDINGS: None. IMPRESSION: No active disease.
--- NOTE | 2018-01-10 11:14 | CT ---
Date of service: 01/10/2018 PROCEDURE: CT HEAD WITHOUT CONTRAST. HISTORY: Headache x 2 days, left side COMPARISON: 07/13/2017. TECHNIQUE: Axial computed tomography images were obtained through the head/brain without intravenous contrast. Radiation dose: Total exam DLP = 975.58 mGy-cm. This CT exam was performed using one or more of the following dose reduction techniques: Automated exposure control, adjustment of the mA and/or kV according to patient size, and/or use of iterative reconstruction technique. FINDINGS: HEMORRHAGE: No intracranial hemorrhage. BRAIN: Morse-white matter differentiation is preserved. There is no mass, mass effect or abnormal extra-axial fluid collection. There is no territorial infarction. The midline sagittal structures are normal. VENTRICLES: There is mild age advanced global parenchymal volume loss and proportionate enlargement of the ventricles and cortical sulci. CALVARIUM: The skull base and calvarium are normal. PARANASAL SINUSES: Predominantly clear. MASTOID AIR CELLS: Predominantly clear. OTHER FINDINGS: None. IMPRESSION: No acute intracranial abnormality. Mild age advanced global parenchymal volume loss.
[2018-01-10 11:17] LABS: FREE T4 4.06 ng/dL (0.78-2.19)
[2018-01-10 22:05] VITALS: BMI 25.4
[2018-01-10] MEDS ORDERED: Pneumococcal 23-Valent Vaccine IM ONE (22:05)
[2018-01-10] MEDS: TraMADol/Apap 37.5/325 mg Tab PO PRN (22:42)
[2018-01-11] MEDS: TraMADol/Apap 37.5/325 mg Tab PO PRN ×2 (06:40→11:02)
--- NOTE | 2018-01-11 10:31 | HP ---
DATE OF EXAM: 01/10/2018 HISTORY OF PRESENT ILLNESS: This 37-year-old female was examined at her bedside. This was in the [facility] ER bed #19 on 01/10/2018. The patient is 37 years old. She presented with a complaint of left-sided severe headache, which was throbbing and severe in nature. She had called her private physician. He advised her to come to the [facility] ER for further evaluation of the above. There, she also complained of history of migraine headache, heavy menstrual periods, chronic hypothyroidism and 2 days of headache with dizziness and recent nausea and vomiting. Because of her complaints and emergency room evaluation showing evidence of severe anemia as well as elevated T4 levels consistent with hyperthyroidism, the patient is being admitted to the cardiac unit for further evaluation of the above. I have requested an immediate consultation with Dr. Jann Pimentel from Neurology regarding her admission symptomatology. REVIEW OF SYSTEMS: On constitutional, denied fever or chills. Head review has history of chronic migraine headaches for which she takes Fioricet. She denied any knowledge of seizure or stroke. Eye review: No change in visual acuity. Ear review: No hearing loss. Throat review: No swallowing difficulty. Neck review: No stiffness. Cardiac review: No chest pain. No palpitation. Pulmonary: No cough. No hemoptysis. GI: She has a history of elevated liver enzymes and reported fatty liver. : No dysuria. Endocrinological: No knowledge of diabetes. Gynecological: She has history of heavy menstrual bleeding. Psychological: History of chronic anxiety. Neurological: No knowledge of stroke. PAST SURGICAL HISTORY: She has a history of gastric bypass surgery. SOCIAL HISTORY: She is a former smoker, a social drinker and denies any misuse of recreational drugs. ALLERGIES: SHE DENIED ALLERGIES TO MEDICATION. MEDICATIONS: States outpatient medication included Synthroid 200 mcg p.o. daily. FAMILY HISTORY: Noncontributory. PHYSICAL EXAMINATION: GENERAL: Physical exam in the emergency room revealed an alert and oriented patient complaining of mild headache. VITAL SIGNS: Temperature of 97.7, respirations 18, pulse 66 and blood pressure 106/69 with a pulse ox of 100% on room air. HEENT: Head: Normocephalic, atraumatic. Eyes: No icterus. Ears clear. Throat: Noninjected. NECK: Supple. HEART: Regular S1, S2. No pathological rubs, murmurs or gallops. LUNGS: Clear. ABDOMEN: Soft. EXTREMITIES: No edema. SKIN: Without rash. Legs warm to touch. NEUROLOGICAL: Grossly intact. PSYCHOLOGICAL: Alert, but anxious. LABORATORY DATA: White count 3300, hemoglobin 8.5, hematocrit 28, MCV 80, platelets 261,000. Sodium 142, K 4.1, chloride 106, bicarb 27, BUN 11, creatinine 0.6, random blood sugar 104, calcium 9.1, magnesium 2, bilirubin 0.2, AST 34, ALT 16, alk phos 48, ammonia level normal 14. TSH low 0.22, free T4 high 4.06. Urinalysis showed moderate bacteria. Alcohol level less than 10. Infectious mono assay negative. Chest x-ray was reviewed. It shows no active pulmonary disease. There were no pleural effusions noted. No pneumothorax was seen. No evidence of congestive heart failure on x-ray. No infiltrate. Head CT was reviewed. It showed no acute intracranial abnormalities. There were no mass, no hemorrhage. No infarcts noted. EKG reportedly showed normal sinus rhythm. IMPRESSION: A 37-year-old female with history of gastric bypass, hypothyroidism, anemia of iron deficiency and chronic disease secondary to ongoing heavy menstrual cycles. Now with severe headache, nausea, vomiting with history of migraine headache associated with nausea and vomiting and inability to ambulate safely at home given her above symptomatology. Also with probable urinary tract infection with urine culture sent and the patient given one dose of IV Rocephin in ER. PLAN: The plan is to admit this patient to the cardiac unit where she will be seen in evaluation by Dr. Jann Pimentel from Neurology. I have held her oral Synthroid given her abnormal thyroid parameters now consistent with hyperthyroidism and will continue iron, ferrous gluconate 324 mg p.o. t.i.d. The patient was given Reglan 10 mg IV stat in the emergency room as Imitrex as well as Imitrex 25 mg p.o. x1 dose. She has been ordered to receive Ultracet 1 tablet p.o. every 8 hours p.r.n. severe headache. We will review the results of her urine culture. She was advised that she will need outpatient gynecological followup regarding heavy menstrual cycles now resulting in anemia and will be given a heart-healthy diet while in the [facility]. Greater than 75 minutes was spent in the care and management, review of labs, orders, x-rays, discussion of this patient with emergency room physician and nurse, Vanessa Pelletier, registered nurse. All questions were answered. Rosie Jade MD MTDAly
[2018-01-11] MEDS ORDERED: Apap-Butalbital-Caffeine 325-50-40mg Tab PO PRN (12:44)
--- NOTE | 2018-01-11 14:05 | CARD ---
APPROVED REPORT Date of service: 01/10/2018 EKG Measurement Heart [id number] <Conclusion> Normal sinus rhythm ? delta waves Normal ECG
[2018-01-11 17:27] VITALS: BP 118/74; PULSE 55; RESP 19; TEMP 98.5; O2SAT 98
--- NOTE | 2018-01-11 17:35 | CON ---
DATE: 01/11/2018 HISTORY OF PRESENT ILLNESS: This is a 37-year-old female with a past medical history of hypothyroidism, migraine, headache, came with the complaint of headache and dizziness, which is 10/10 with no nausea, vomiting. Headache was on the left side of the head lasting for 2 days and with some nausea and throbbing in nature, came to the emergency room and at bedside. PAST MEDICAL HISTORY: Severe anemia secondary to heavy menstrual period, hypothyroidism, migraine headache, and GERD. ALLERGIES: NO KNOWN DRUG ALLERGIES. HOME MEDICATIONS: Levothyroxine and Synthroid. REVIEW OF SYSTEMS: Negative except headache. PHYSICAL EXAMINATION: VITAL SIGNS: Blood pressure 106/69. HEENT: Normocephalic and atraumatic. NECK: Supple. NEUROLOGIC: Alert, awake, and oriented x3. No aphasia. Cranial nerve II through XII were tested. Pupils reactive. EOM intact. Visual miles full. No facial asymmetry. Tongue midline. Motor examination: Moves all the extremities equally. Tone normal. Deep tendon reflexes are 1+. Both plantars are downgoing. Sensory appears intact. Cerebellar, gait, deferred. IMPRESSION: Migraine headache. CAT scan of the head was done. No intracranial pathology. Continue Fioricet every 8 hour p.r.n. and we will follow up. Mason Pimentel MD
--- NOTE | 2018-01-13 12:42 | DS ---
DATE OF EXAM AND DATE OF DISCHARGE: 01/11/2018. HISTORY OF PRESENT ILLNESS: The patient is to follow up with her primary care physician, Dr. Cesar Rodriguez, medical doctor within 48 hours. The patient was given a referral to Dr. Ian Raymond, Ear, Nose and Throat physician should the patient have any further complaints or need for followup regarding her submandibular swollen glands. The patient also was advised to decrease her Synthroid to 150 mcg p.o. daily, continue ferrous gluconate 324 mg p.o. t.i.d. 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 SUMMARY: This 37-year-old female who was admitted with a severe migrainous headache and nausea and vomiting and inability to ambulate was seen in consultation by Dr. Mason Pimentel, who reviewed her findings clinically as well as a head CT and cleared the patient for discharge on 01/11/2018. At the time of my interview for discharge planning, her temperature was 97.4, respirations 20, pulse 76 and blood pressure 105/58 with a pulse ox of 100% on room air. Discharge labs showed white count 3300, hemoglobin 8.5, hematocrit 28, platelets 261,000. Sodium 142, K 4.1, chloride 106, bicarb 27, BUN 11, creatinine 0.6, random blood sugar 104, calcium 9.1, magnesium 2, bilirubin 0.2, AST 34, ALT 16 and alk phos 48. Ammonia level normal 14, free T4 was high at 4.06. TSH was low at 0.22 and blood test was negative. Blood testing for alcohol was negative. Infectious mononucleosis testing was negative. Her head CT was reviewed. It showed no intracranial abnormalities. Her chest x-ray was reviewed, which showed no active pulmonary disease, no effusions, no pneumothorax, no infiltrates, no evidence of congestive heart failure. Her EKG was reviewed. It showed normal sinus rhythm with nonspecific ST-T wave changes. The patient was cleared for discharge by Dr. Mason Pimentel and discharge instructions were reviewed with her and nurse, Vanessa Pelletier, registered nurse. Hopefully, the patient will be compliant with the above recommendations for a decreased dosing of Synthroid, continuation of oral Iron, follow up with gynecology and PMD for additional testing and management of her issues and Dr. Raymond regarding her submandibular swollen lymph glands. Greater than 35 minutes was spent in the care and management, review of labs, orders, x-rays and discussion of hospital course and discharge management with herself, nursing and Dr. Pimentel. All questions were answered. Rosie Jade MD MTDD
== END 2018-01-11 17:28 | disposition home or self-care (01) ==
LOC: ED 09:15 → ERH 12:03 → 3RSO 16:23
PROVIDERS: ADMIT Internal Medicine; ATTEND Internal Medicine
DX: G43.909 Migraine, unspecified, not intractable, without status migrainosus (principal); D50.9 Iron deficiency anemia, unspecified; E05.90 Thyrotoxicosis, unspecified without thyrotoxic crisis or storm; E03.9 Hypothyroidism, unspecified; K21.9 Gastro-esophageal reflux disease without esophagitis; N92.0 Excessive and frequent menstruation with regular cycle; Z98.84 Bariatric surgery status
CPT/HCPCS: 70450; 71045; 80053; 81001; 82140; 83735; 84439; 84443; 84702; 85025; 86308; 86850; 86900; 87086; 93005; 96361; 96374; 96375; 99285; G0378; G0480; J0696; J1200; J2765; J7030

== ENCOUNTER 2018-07-07 04:37 | Emergency (ER) | payer BC, MEDICAID ==
[2018-07-07 04:37] VITALS: BMI 25.4
[2018-07-07 04:45] VITALS: TEMP 98.1
--- NOTE | 2018-07-07 05:00 | ED PDOC ---
Arrival/HPI - General Chief Complaint: Back Pain Time Seen by Provider: 07/07/18 04:54 Historian: Patient - History of Present Illness Narrative History of Present Illness (Text): 07/07/18 05:00 Risa Hahn is a 38 year old female, whose past medical history includes hypothyroidism, thyroidectomy s/p papillary cell carcinoma, anemia, GERD, and gastric bypass, who presents to the emergency department complaining of back pain. Patient states she woke up twice this evening due to worsening lower back pain. Patient states she initially applied topical analgesic cream to the affected area but denies any significant relief. Patient also reports right great toe pain. Patient denies any trauma/injury, fever, abdominal pain, vomiting, neck pain, headache, dizziness, weakness/numbness/tingling in the extremities, or any other complaints. Time/Duration: Other (tonight) Symptom Onset: Gradual Symptom Course: Unchanged Activities at Onset: Rest Context: Home Past Medical History - Provider Review Nursing Documentation Reviewed: Yes - Past History Past History: No Previous - Infectious Disease Hx of Infectious Diseases: None - Tetanus Immunization Tetanus Immunization: Unknown - Cardiac Hx Cardiac Disorders: Yes Hx Hypertension: Yes - Pulmonary Hx Respiratory Disorders: No - Neurological Hx Seizures: Yes (Childhood) - HEENT Hx HEENT Disorder: No - Renal Hx Renal Disorder: No - Endocrine/Metabolic Hx Hypothyroidism: Yes - Hematological/Oncological Hx Blood Disorders: Yes Hx Anemia: Yes - Integumentary Hx Dermatological Disorder: No - Musculoskeletal/Rheumatological Hx Musculoskeletal Disorders: No Hx Falls: No - Gastrointestinal Hx Gastrointestinal Disorders: Yes (ESOPHAGITIS,GASTRITIS,GASTRIC BYPASS SX) Hx Gastroesophageal Reflux: Yes - Genitourinary/Gynecological Hx Genitourinary Disorders: Yes (TUBAL LIGATION) - Psychiatric Hx Psychophysiologic Disorder: Yes (SMOKED CIGARETTES,DRINKS ALCOHOL OCCASIONALLY) Hx Anxiety: Yes Hx Substance Use: Yes (occasional) - Surgical History Hx Gastric Bypass Surgery: Yes - Anesthesia Hx Anesthesia: Yes Hx Anesthesia Reactions: No Hx Malignant Hyperthermia: No Family/Social History - Physician Review Nursing Documentation Reviewed: Yes Family/Social History: Unknown Family HX Smoking Status: Former Smoker Hx Alcohol Use: Yes (OCCASIONALLY) Hx Substance Use: Yes (occasional) Substance used: marijuana Hx Substance Use Treatment: No Allergies/Home Meds Allergies/Adverse Reactions: Allergies No Known Allergies Allergy (Verified 01/10/18 21:00) Review of Systems - Physician Review All systems were reviewed & negative as marked: Yes - Review of Systems Constitutional: Normal. absent: Fevers Eyes: Normal ENT: Normal Respiratory: Normal. absent: SOB, Cough Cardiovascular: Normal. absent: Chest Pain Gastrointestinal: Normal. absent: Abdominal Pain, Diarrhea, Nausea, Vomiting Genitourinary Female: Normal. absent: Dysuria, Frequency, Hematuria, Urine Output Changes Musculoskeletal: Back Pain. absent: Neck Pain Skin: Normal. absent: Rash Neurological: Normal. absent: Headache, Dizziness Endocrine: Normal Hemo/Lymphatic: Normal Psychiatric: Normal Physical Exam Vital Signs Reviewed: Yes Vital Signs Temp Pulse Resp BP Pulse Ox 07/07/18 04:37 98.1 F 76 18 103/68 98 Temperature: Afebrile Blood Pressure: Normal Pulse: Regular Respiratory Rate: Normal Appearance: Positive for: Well-Appearing, Non-Toxic, Comfortable Mental Status: Positive for: Alert and Oriented X 3 - Systems Exam Head: Present: Atraumatic, Normocephalic Pupils: Present: PERRL Extroacular Muscles: Present: EOMI Conjunctiva: Present: Normal Mouth: Present: Moist Mucous Membranes Neck: Present: Normal Range of Motion Respiratory/Chest: Present: Clear to Auscultation, Good Air Exchange. No: Respiratory Distress, Accessory Muscle Use Cardiovascular: Present: Regular Rate and Rhythm, Normal S1, S2. No: Murmurs Abdomen: No: Tenderness, Distention, Peritoneal Signs Back: Present: Paraspinal Tenderness (Lower paraspinal tenderness and point tenderness at l5 and sacrum). No: CVA Tenderness, Midline Tenderness Upper Extremity: Present: Normal Inspection. No: Cyanosis, Edema Lower Extremity: Present: Normal Inspection. No: Edema Neurological: Present: GCS=15, CN II-XII Intact, Speech Normal Skin: Present: Warm, Dry, Normal Color. No: Rashes Psychiatric: Present: Alert, Oriented x 3, Normal Insight, Normal Concentration Medical Decision Making ED Course and Treatment: 07/07/18 05:00 Impression: 38 year old female complaining of lower back pain and right great toe. Plan: -- XR Lumbar Spine -- XR Right Foot -- Toradol -- Valium -- Morphine -- Zofran -- Reassess and disposition Progress Notes: 07/07/18 06:07 reviewed radiology, XR Lumbar Spine shows no acute processes. XR Right Foot shows no acute processes. - RAD Interpretation Credit Report Checker: ED Physician - Scribe Statement The provider has reviewed the documentation as recorded by the Jerod Cruz Provider Scribe Attestation: All medical record entries made by the Scribe were at my direction and personally dictated by me. I have reviewed the chart and agree that the record accurately reflects my personal performance of the history, physical exam, medical decision making, and the department course for this patient. I have also personally directed, reviewed, and agree with the discharge instructions and disposition. Disposition/Present on Arrival - Present on Arrival Any Indicators Present on Arrival: No History of DVT/PE: No History of Uncontrolled Diabetes: No Urinary Catheter: No History of Decub. Ulcer: No History Surgical Site Infection Following: None - Disposition Have Diagnosis and Disposition been Completed?: Yes Diagnosis: Back pain at L4-L5 level Disposition: HOME/ ROUTINE Disposition Time: 07:00 Condition: GOOD Discharge Instructions (ExitCare): Low Back Pain in Adults Prescriptions: Cyclobenzaprine [Cyclobenzaprine HCl] 10 mg PO TID #21 tab Lidocaine 5% [Lidoderm] 1 ea TD DAILY #5 patch Referrals: Christopher Neville MD [Staff Provider] - Follow up with primary Cesar Rodriguez MD [Primary Care Provider] - Follow up with primary Forms: [employer] (Yoruba), WORK NOTE
[2018-07-07] MEDS ORDERED: Morphine 2 mg/ml ISec IM STA (05:03)
[2018-07-07 05:54] VITALS: BP 103/57; PULSE 63; RESP 16; O2SAT 100
--- NOTE | 2018-07-07 18:48 | RAD ---
Date of service: 07/07/2018 PROCEDURE: Radiographs of the Lumbar Spine. HISTORY: Back Pain. No history of recent/ related trauma provided COMPARISON: No prior. FINDINGS: BONES: Normal alignment. No listhesis. No fracture. DISC SPACES: Unremarkable. OTHER FINDINGS: None. IMPRESSION: Unremarkable radiographs of the lumbar spine.
--- NOTE | 2018-07-07 18:49 | RAD ---
Date of service: 07/07/2018 PROCEDURE: Right Foot Radiographs. HISTORY: Pain. No history of recent/ related trauma provided COMPARISON: None. FINDINGS: BONES: Normal. No fracture. JOINTS: Normal. SOFT TISSUES: Normal. OTHER FINDINGS: None. IMPRESSION: Normal right foot radiographs.
== END 2018-07-07 06:48 | disposition home or self-care (01) ==
LOC: ED 04:37
DX: M54.5 Low back pain (principal)
CPT/HCPCS: 72110; 73630; 96372; 99284; J1885; J2270

== ENCOUNTER 2018-08-21 10:13 | Inpatient (IN) | payer BC, MEDICAID ==
[2018-08-21] MEDS ORDERED: Sodium Chloride 0.9% 1,000 ML IV STA ×2 (10:39→16:33)
--- NOTE | 2018-08-21 10:58 | ED PDOC ---
Arrival/HPI - General Chief Complaint: Abdominal Pain Time Seen by Provider: 08/21/18 10:27 Historian: Patient - History of Present Illness Narrative History of Present Illness (Text): 08/21/18 10:55 38-year-old female with a history of gastric bypass, anemia, thyroidectomy presents today with severe diffuse abdominal pain. Patient states that she woke up today with severe pain. Patient states she took Tylenol for pain without improvement. She denies numbness weakness or tingling in the extremities. Patient is complaining of nausea and vomiting. Denies diarrhea. No chest pain or shortness of breath. Denies fevers or chills. Denies sick contacts. No other complaints Time/Duration: Other (this AM) Symptom Onset: Sudden Symptom Course: Unchanged Quality: Aching, Stabbing Severity Level: 10 Past Medical History - Provider Review Nursing Documentation Reviewed: Yes - Travel History Have you recently traveled outside [place] w/in the past 3 mons?: No - Past History Past History: No Previous - Infectious Disease Hx of Infectious Diseases: None - Tetanus Immunization Tetanus Immunization: Unknown - Reproductive Menopause: No - Cardiac Hx Cardiac Disorders: Yes Hx Hypertension: Yes - Pulmonary Hx Respiratory Disorders: No - Neurological Hx Seizures: Yes (Childhood) - HEENT Hx HEENT Disorder: No - Renal Hx Renal Disorder: No - Endocrine/Metabolic Hx Hypothyroidism: Yes - Hematological/Oncological Hx Blood Disorders: Yes Hx Anemia: Yes - Integumentary Hx Dermatological Disorder: No - Musculoskeletal/Rheumatological Hx Musculoskeletal Disorders: No Hx Falls: No - Gastrointestinal Hx Gastrointestinal Disorders: Yes (ESOPHAGITIS,GASTRITIS,GASTRIC BYPASS SX) Hx Gastroesophageal Reflux: Yes - Genitourinary/Gynecological Hx Genitourinary Disorders: Yes (TUBAL LIGATION) - Psychiatric Hx Psychophysiologic Disorder: Yes (SMOKED CIGARETTES,DRINKS ALCOHOL OCCASI ONALLY) Hx Anxiety: Yes Hx Substance Use: Yes (occasional) - Surgical History Hx Gastric Bypass Surgery: Yes - Anesthesia Hx Anesthesia: Yes Hx Anesthesia Reactions: No Hx Malignant Hyperthermia: No Family/Social History - Physician Review Nursing Documentation Reviewed: Yes Family/Social History: Unknown Family HX Smoking Status: Former Smoker Hx Alcohol Use: Yes (OCCASIONALLY) Hx Substance Use: Yes (occasional) Substance used: marijuana Hx Substance Use Treatment: No Allergies/Home Meds Allergies/Adverse Reactions: Allergies No Known Allergies Allergy (Verified 08/21/18 10:24) Review of Systems - Review of Systems Constitutional: absent: Fatigue, Fevers Respiratory: absent: SOB, Cough Cardiovascular: absent: Chest Pain, Palpitations Gastrointestinal: Abdominal Pain, Nausea, Vomiting. absent: Constipation, Diarrhea Genitourinary Female: absent: Dysuria, Frequency, Hematuria, Vaginal Bleeding, Vaginal Discharge Musculoskeletal: absent: Arthralgias, Back Pain, Neck Pain Skin: absent: Rash, Pruritis Neurological: absent: Headache, Dizziness Psychiatric: absent: Anxiety, Depression Physical Exam Vital Signs Reviewed: Yes Vital Signs Temp Pulse Resp BP Pulse Ox 08/21/18 10:18 97.9 F 99 H 19 91/57 L 99 Temperature: Afebrile Blood Pressure: Normal Pulse: Regular Respiratory Rate: Normal Appearance: Positive for: Well-Appearing, Non-Toxic, Uncomfortable Pain Distress: Mild Mental Status: Positive for: Alert and Oriented X 3 - Systems Exam Head: Present: Atraumatic Neck: Present: Normal Range of Motion Respiratory/Chest: Present: Clear to Auscultation, Good Air Exchange. No: Respiratory Distress, Accessory Muscle Use Cardiovascular: Present: Regular Rate and Rhythm, Normal S1, S2. No: Murmurs Abdomen: Present: Tenderness (+ diffuse abd tenderness), Normal Bowel Sounds, Rebound, Guarding. No: Distention, Peritoneal Signs Back: Present: Normal Inspection. No: CVA Tenderness, Midline Tenderness, Paraspinal Tenderness Upper Extremity: Present: Normal ROM Lower Extremity: Present: Normal ROM Neurological: Present: GCS=15, Speech Normal Skin: Present: Warm, Dry, Normal Color. No: Rashes Psychiatric: Present: Alert, Oriented x 3 Medical Decision Making ED Course and Treatment: 08/21/18 10:58 Patient is nontoxic well appearing with stable vital signs presenting with severe diffuse abdominal pain CBC Hbg;7.5 CMP wnl Lipase wnl Urinalysis: wnl CAT scan: FINDINGS: LOWER THORAX: Unremarkable. LIVER: Unremarkable. No gross lesion or ductal dilatation. GALLBLADDER AND BILE DUCTS: Unremarkable. PANCREAS: Unremarkable. No gross lesion or ductal dilatation. SPLEEN: Small splenule. ADRENALS: Unremarkable. No mass. KIDNEYS AND URETERS: Unremarkable. No hydronephrosis. No solid mass. VASCULATURE: Unremarkable. No aortic aneurysm. No aortic atherosclerotic calcification or mural plaque present. BOWEL: Hiatal hernia on with gastric gastroesophageal region postsurgical changes. No obstruction. No gross mural thickening. APPENDIX: Appendix is predominantly filled with air. Tip may have an appendicolith and measures up to 8 mm with thick wall. There stranding in the right lower quadrant. PERITONEUM: Tiny fat containing umbilical hernia. No free fluid. No free air. LYMPH NODES: Unremarkable. No enlarged lymph nodes. BLADDER: Unremarkable. REPRODUCTIVE: 4.4 x 3.4 cm and 2.6 x 3.5 left ovarian cysts. In right corpus luteal follicle. Small volume pelvic fluid. BONES: No acute fracture. OTHER FINDINGS: None. IMPRESSION: Multiple left ovarian cysts, largest measures up to 4.4 cm. Small volume pelvic fluid which measures little higher than simple fluid, possibly representing a ruptured hemorrhagic cyst. Pelvic ultrasound can be obtained for further evaluation as clinically warranted. Appendiceal tip may have appendicolith with slightly prominent and thick wall. The there is mild stranding in the right lower quadrant and remainder of the pelvis. Given the nonlocalized stranding, tip appendicitis is felt to be less likely; however, cannot be entirely excluded. Clinical correlation is recommended. US transvaginal: FINDINGS: UTERUS: Measures 7.0 x 5.7 x 5.6 cm. Normal in size and appearance. No fibroid or other mass lesion seen. ENDOMETRIUM: Measures 14 mm in diameter. Unremarkable. CERVIX: No cervical abnormality identified. RIGHT OVARY: Measures 3.6 x 1.5 x 1.7 cm. No solid mass. Normal flow. LEFT OVARY: Measures 4.3 x 2.7 x 2.8 cm. Cyst measuring 3.9 x 2.8 x 2.4 cm normal flow. FREE FLUID: Trace complex cul-de-sac fluid. OTHER FINDINGS: None. IMPRESSION: 3.9 cm left ovarian cyst. Trace cul-de-sac complex fluid, likely hemorrhagic. Patient reassessment: pt with continued pain; vitals remain stable. consent for blood transfusion obtained. risks/benefit discussed with patient. Discussed all results with patient in depth case discussed with . rn medical surgical dr. carranza who is at beside. case discussed with dr. Davidson ([employer]LY[employer]) in depth; advised her of ct/us of ruptured ovarian cyst with pelvic fluid likely blood. advised her of anemia. she advised no intervention at this time. ekg; normal sinus rhythm with sinus arrhythmia at 61 bpm normal axis normal intervals no ST elevations 2 units of PRBCS ordered. pt reassessment; pt is feeling better; vitals remain stable. pain has localized to LLQ now. case discussed with dr. bender; accepts admission for anemia with [employer] PROGRAM[employer] ANALYST and Surgical consults. Impression: Abdominal pain, anemia, ovarian cyst, pelvic fluid admit remote tele. Reassessment Condition: Re-examined, Improved - RAD Interpretation Radiology Orders: 08/21/18 10:46 ABD & PELVIS IV CONTRAST ONLY [CT] Stat - Medication Orders Current Medication Orders: Sodium Chloride (Sodium Chloride 0.9%) 1,000 mls @ 999 mls/hr IV .Q1H1M STA Stop: 08/21/18 11:39 Pantoprazole Sodium (Protonix Inj) 40 mg IVP STAT STA Stop: 08/21/18 10:55 Discontinued Medications Ketorolac Tromethamine (Toradol) 15 mg IVP STAT STA Stop: 08/21/18 10:53 Disposition/Present on Arrival - Present on Arrival Any Indicators Present on Arrival: No History of DVT/PE: No History of Uncontrolled Diabetes: No Urinary Catheter: No History of Decub. Ulcer: No History Surgical Site Infection Following: None - Disposition Have Diagnosis and Disposition been Completed?: Yes Diagnosis: Abdominal pain, Anemia, Hemorrhagic cyst, Abnormal computed tomography of abdomen and pelvis Disposition: HOSPITALIZED Disposition Time: 14:00 Patient Plan: Admission Condition: FAIR
[2018-08-21 11:02] LABS: URINE BILIRUBIN NEGATIVE (NEGATIVE); URINE BLOOD NEGATIVE (NEGATIVE); URINE GLUCOSE (UA) NEGATIVE (NEGATIVE); URINE LEUKOCYTE ESTERASE NEGATIVE Leu/uL (NEGATIVE); URINE PROTEIN TRACE mg/dL (<30 mg/dL)
[2018-08-21 11:06] LABS: URINE APPEARANCE CLEAR (CLEAR); URINE COLOR STRAW (YELLOW)
[2018-08-21 11:07] LABS: VENOUS BLOOD GAS BASE EXCESS 3.8 mmol/L (0.0-2.0); VENOUS BLOOD GAS PO2 61 mm/Hg (30-55); VENOUS BLOOD PH 7.54 (7.32-7.43)
[2018-08-21 11:19] LABS: BASO # 0.05 {null, K/mm3} (0.0-2.0); BASO % 1.1 % (0.0-3.0); EOS # 0.1 (0.0-0.7); EOS % 2.8 % (1.5-5.0); HEMOGLOBIN 7.5 g/dL (12.0-16.0); LYMPH # 1.3 (1.2-3.4); LYMPH % 27.3 % (22.0-35.0); MEAN CELL VOLUME 66.7 fl (80.0-105.0); MEAN PLATELET VOLUME 9.4 fl (7.0-11.0); MONO # 0.2 (0.1-0.6); MONO % 4.3 % (1.0-6.0); RBC 4.17 {null, 10^6/uL} (3.5-6.1); RED CELL DISTRIBUTION WIDTH 19.6 % (11.5-14.5); WHITE BLOOD COUNT 4.7 {null, 10^3/uL} (4.5-11.0)
[2018-08-21 11:25] LABS: ALB/GLOB RATIO 1.2 (1.1-1.8); ALBUMIN 3.7 g/dL (3.0-4.8); ALT/SGPT 8 U/L (7-56); AST/SGOT 23 U/L (14-36); BLOOD UREA NITROGEN 11 mg/dL (7-21); CALCIUM 8.7 mg/dL (8.4-10.5); GFR NON-AFRICAN AMERICAN > 60; LIPASE 62 U/L (23-300)
[2018-08-21 11:26] LABS: URINE RBC 0 - 2 /hpf (0-2); URINE WBC 0 - 2 /hpf (0-6)
[2018-08-21 11:27] LABS: URINE AMORPHOUS SEDIMENT FEW /hpf; URINE BACTERIA MANY /hpf
--- NOTE | 2018-08-21 11:37 | RAD ---
Date of service: 08/21/2018 HISTORY: abd pain COMPARISON: Chest radiograph dated 01/10/2018. TECHNIQUE: 1 view obtained. FINDINGS: LUNGS: No active pulmonary disease. PLEURA: No significant pleural effusion identified, no pneumothorax apparent. CARDIOVASCULAR: No aortic atherosclerotic calcification present. Normal cardiac size. No pulmonary vascular congestion. OSSEOUS STRUCTURES: No significant abnormalities. VISUALIZED UPPER ABDOMEN: Epigastric region surgical clips. OTHER FINDINGS: None. IMPRESSION: No active disease.
[2018-08-21] MEDS ORDERED: Iohexol 350 MG/100 ML VIAL ONE (11:44)
[2018-08-21] MEDS ORDERED: Morphine 2 mg/ml ISec IVP STA (13:06)
--- NOTE | 2018-08-21 13:32 | CT ---
Date of service: 08/21/2018 PROCEDURE: CT Abdomen and Pelvis with contrast HISTORY: abd pain COMPARISON: None. TECHNIQUE: Contrast dose: 100 mL Omnipaque 350 Radiation dose: Total exam DLP = 351.93 mGy-cm. This CT exam was performed using one or more of the following dose reduction techniques: Automated exposure control, adjustment of the mA and/or kV according to patient size, and/or use of iterative reconstruction technique. FINDINGS: LOWER THORAX: Unremarkable. LIVER: Unremarkable. No gross lesion or ductal dilatation. GALLBLADDER AND BILE DUCTS: Unremarkable. PANCREAS: Unremarkable. No gross lesion or ductal dilatation. SPLEEN: Small splenule. ADRENALS: Unremarkable. No mass. KIDNEYS AND URETERS: Unremarkable. No hydronephrosis. No solid mass. VASCULATURE: Unremarkable. No aortic aneurysm. No aortic atherosclerotic calcification or mural plaque present. BOWEL: Hiatal hernia on with gastric gastroesophageal region postsurgical changes. No obstruction. No gross mural thickening. APPENDIX: Appendix is predominantly filled with air. Tip may have an appendicolith and measures up to 8 mm with thick wall. There stranding in the right lower quadrant. PERITONEUM: Tiny fat containing umbilical hernia. No free fluid. No free air. LYMPH NODES: Unremarkable. No enlarged lymph nodes. BLADDER: Unremarkable. REPRODUCTIVE: 4.4 x 3.4 cm and 2.6 x 3.5 left ovarian cysts. In right corpus luteal follicle. Small volume pelvic fluid. BONES: No acute fracture. OTHER FINDINGS: None. IMPRESSION: Multiple left ovarian cysts, largest measures up to 4.4 cm. Small volume pelvic fluid which measures little higher than simple fluid, possibly representing a ruptured hemorrhagic cyst. Pelvic ultrasound can be obtained for further evaluation as clinically warranted. Appendiceal tip may have appendicolith with slightly prominent and thick wall. The there is mild stranding in the right lower quadrant and remainder of the pelvis. Given the nonlocalized stranding, tip appendicitis is felt to be less likely; however, cannot be entirely excluded. Clinical correlation is recommended.
--- NOTE | 2018-08-21 14:52 | CP.PCM.CON ---
History of Present Illness - History of Present Illness History of Present Illness: General surgery consult note for Dr. Lena Brenner, PGY-2 Pt seen/examined at bedside 38F w/PMH sig for symptomatic ovarian cysts consulted for abdominal pain x 1 day. Pt reports cramping lower abdominal discomfort over the last few days, similar to pre menstrual cramping that patient has monthly. Pain worsened over past day, localized to LLQ, severe, sharp, radiates to RLQ. Admits to N, emesis x 1 (nb, bilious), dry heaving, dizziness, flatus, belching. Denies BM (no BM x 24 hrs- normal is 3 x weekly), weakness, CP, SOB, sore throat, cough, rhinorrhea, CARTER, vision changes, changes in urinary habits, other complaints. In ED- no leukocytosis, afebrile. CT AP w/multiple large L ovarian cysts, some fluid compatible with possible hemorrhagic cyst rupture. PMH: hx morbid obesity, anemia (baseline Hgb 7-8) due to menorrhagia, ovarian cysts, hx papillary thyroid carcinoma s/p surgery & XRT, hx of febrile seizures as a child, gastritis PSH: uterine lining ablation (failed), total thyroidectomy, gastric sleeve All:NKDA SH: Admits to rare ETOH use, denies tobacco or illicit drug use FH: M- Thalassemia PMD: Dr. Rodriguez LMP: ~08/01/18 Review of Systems - Review of Systems All systems: reviewed and no additional remarkable complaints except - Constitutional Constitutional: absent: Chills, Fever - EENT Eyes: absent: Change in Vision Nose/Mouth/Throat: absent: Sore Throat - Cardiovascular Cardiovascular: absent: Chest Pain - Gastrointestinal Gastrointestinal: Abdominal Pain, Belching, Constipation, Nausea, Vomiting. absent: Bloating, Diarrhea, Hematemesis, Hematochezia, Loose Stools, Melena - Genitourinary Genitourinary: absent: Change in Urinary Stream - Reproductive: Female Reproductive:Female: Heavy Menses - Musculoskeletal Musculoskeletal: absent: Numbness, Tingling - Integumentary Integumentary: absent: New Lesions - Neurological Neurological: Dizziness. absent: Weakness - Endocrine Endocrine: absent: Fatigue Past Patient History - Infectious Disease Hx of Infectious Diseases: None - Tetanus Immunizations Tetanus Immunization: Unknown - Past Social History Smoking Status: Former Smoker - CARDIAC Hx Cardiac Disorders: Yes Hx Hypertension: Yes - PULMONARY Hx Respiratory Disorders: No - NEUROLOGICAL Hx Seizures: Yes (Childhood) - HEENT Hx HEENT Problems: No - RENAL Hx Chronic Kidney Disease: No - ENDOCRINE/METABOLIC Hx Hypothyroidism: Yes - HEMATOLOGICAL/ONCOLOGICAL Hx Blood Disorders: Yes Hx Anemia: Yes - INTEGUMENTARY Hx Dermatological Problems: No - MUSCULOSKELETAL/RHEUMATOLOGICAL Hx Musculoskeletal Disorders: No Hx Falls: No - GASTROINTESTINAL Hx Gastrointestinal Disorders: Yes (ESOPHAGITIS,GASTRITIS,GASTRIC BYPASS SX) Hx Gastroesophageal Reflux: Yes - GENITOURINARY/GYNECOLOGICAL Hx Genitourinary Disorders: Yes (TUBAL LIGATION) - PSYCHIATRIC Hx Psychophysiologic Disorder: Yes (SMOKED CIGARETTES,DRINKS ALCOHOL OCCASIONALLY) Hx Anxiety: Yes Hx Substance Use: Yes (occasional) - SURGICAL HISTORY Hx Gastric Bypass Surgery: Yes - ANESTHESIA Hx Anesthesia: Yes Hx Anesthesia Reactions: No Hx Malignant Hyperthermia: No Meds Allergies/Adverse Reactions: Allergies Allergy/AdvReac Type Severity Reaction Status Date / Time No Known Allergies Allergy Verified 08/21/18 10:24 Physical Exam - Constitutional Appears: Non-toxic, No Acute Distress - Head Exam Head Exam: ATRAUMATIC, NORMAL INSPECTION, NORMOCEPHALIC - Eye Exam Eye Exam: EOMI, Normal appearance - ENT Exam ENT Exam: Mucous Membranes Moist, Normal Exam - Neck Exam Neck exam: Positive for: Full Rom, Normal Inspection - Respiratory Exam Respiratory Exam: Wheezes (mild, b/l), NORMAL BREATHING PATTERN. absent: Accessory Muscle Use - Cardiovascular Exam Cardiovascular Exam: REGULAR RHYTHM, +S1, +S2 - GI/Abdominal Exam GI & Abdominal Exam: Normal Bowel Sounds, Soft, Tenderness (LLQ). absent: Distended, Firm, Guarding Additional comments: well healed small linear scars over LUQ, umbilicus - Extremities Exam Extremities exam: Positive for: normal inspection - Neurological Exam Neurological exam: Alert, CN II-XII Intact, Oriented x3 - Psychiatric Exam Psychiatric exam: Normal Affect, Normal Mood - Skin Skin Exam: Dry, Intact, Normal Color, Warm Results - Vital Signs Recent Vital Signs: Last Vital Signs Temp 97.9 F 08/21/18 10:18 Pulse 65 08/21/18 14:04 Resp 18 08/21/18 14:04 BP 105/76 08/21/18 14:04 Pulse Ox 100 08/21/18 14:04 - Labs Result Diagrams: 08/21/18 15:00 08/21/18 10:50 Labs: Laboratory Results - last 24 hr 08/21/18 08/21/18 08/21/18 10:30 10:50 10:50 WBC 4.7 RBC 4.17 Hgb 7.5 L Hct 27.8 L MCV 66.7 L D MCH 18.0 L MCHC 27.0 L RDW 19.6 H Plt Count 330 MPV 9.4 Neut % (Auto) 64.5 Lymph % (Auto) 27.3 [place] % (Auto) 4.3 Eos % (Auto) 2.8 Baso % (Auto) 1.1 Lymph # (Auto) 1.3 [place] # (Auto) 0.2 Eos # (Auto) 0.1 Baso # (Auto) 0.05 Absolute Neuts (auto) 3.03 pO2 VBG pH VBG pCO2 VBG HCO3 VBG Total CO2 VBG O2 Sat (Calc) VBG Base Excess VBG Potassium Glucose Lactate FiO2 Sodium 139 Potassium 3.7 Chloride 106 Carbon Dioxide 25 Anion Gap 12 BUN 11 Creatinine 0.6 L Est GFR ( Amer) > 60 Est GFR (Non-Af Amer) > 60 Random Glucose 104 Calcium 8.7 Total Bilirubin 0.1 L AST 23 ALT 8 Alkaline Phosphatase 45 Total Protein 6.7 Albumin 3.7 Globulin 3.1 Albumin/Globulin Ratio 1.2 Lipase 62 Venous Blood Potassium Urine Color Straw Urine Appearance Clear Urine pH 8.0 Ur Specific [place] 1.010 Urine Protein Trace H Urine Glucose (UA) Negative Urine Ketones Negative Urine Blood Negative Urine Nitrate Negative Urine Bilirubin Negative Urine Urobilinogen 1.0 H Ur Leukocyte Esterase Negative Urine RBC 0 - 2 Urine WBC 0 - 2 Ur Epithelial Cells 6 - 8 H Amorphous Sediment Few Urine Bacteria Many Urine Other Uyeast Urine HCG, Qual Cancelled 08/21/18 11:00 WBC RBC Hgb Hct MCV MCH MCHC RDW Plt Count MPV Neut % (Auto) Lymph % (Auto) [place] % (Auto) Eos % (Auto) Baso % (Auto) Lymph # (Auto) [place] # (Auto) Eos # (Auto) Baso # (Auto) Absolute Neuts (auto) pO2 61 H VBG pH 7.54 H VBG pCO2 30.0 L VBG HCO3 25.7 VBG Total CO2 26.6 VBG O2 Sat (Calc) 96.3 H VBG Base Excess 3.8 H VBG Potassium 3.7 Glucose 104 Lactate 1.7 FiO2 21.0 Sodium 139.0 Potassium Chloride 108.0 H Carbon Dioxide Anion Gap BUN Creatinine Est GFR ( Amer) Est GFR (Non-Af Amer) Random Glucose Calcium Total Bilirubin AST ALT Alkaline Phosphatase Total Protein Albumin Globulin Albumin/Globulin Ratio Lipase Venous Blood Potassium 3.7 Urine Color Urine Appearance Urine pH Ur Specific [place] Urine Protein Urine Glucose (UA) Urine Ketones Urine Blood Urine Nitrate Urine Bilirubin Urine Urobilinogen Ur Leukocyte Esterase Urine RBC Urine WBC Ur Epithelial Cells Amorphous Sediment Urine Bacteria Urine Other Urine HCG, Qual Assessment & Plan - Assessment and Plan (Free Text) Assessment: 38F w/PMH sig for menorrhagia, anemia, and large left ovarian cysts with LLQ abdominal pain Plan: Pain control Transvaginal U/S with findings consistent with ruptured hemorrhagic ovarian cyst Anti-emetic Transfuse blood PRN Recommend form worker consult No acute general surgery intervention at this time Further care as per primary team DW Dr. Dez Brenner, PGY-2 - Date & Time Date: 08/21/18 Time: 14:51
--- NOTE | 2018-08-21 15:20 | US ---
Date of service: 08/21/2018 HISTORY: pelvic pain COMPARISON: CT scan of the abdomen pelvis performed earlier the same day. TECHNIQUE: Grayscale, color Doppler and spectral evaluation the pelvis performed transvaginally FINDINGS: UTERUS: Measures 7.0 x 5.7 x 5.6 cm. Normal in size and appearance. No fibroid or other mass lesion seen. ENDOMETRIUM: Measures 14 mm in diameter. Unremarkable. CERVIX: No cervical abnormality identified. RIGHT OVARY: Measures 3.6 x 1.5 x 1.7 cm. No solid mass. Normal flow. LEFT OVARY: Measures 4.3 x 2.7 x 2.8 cm. Cyst measuring 3.9 x 2.8 x 2.4 cm normal flow. FREE FLUID: Trace complex cul-de-sac fluid. OTHER FINDINGS: None. IMPRESSION: 3.9 cm left ovarian cyst. Trace cul-de-sac complex fluid, likely hemorrhagic.
[2018-08-21 15:25] LABS: BASO # 0.05 {null, K/mm3} (0.0-2.0); EOS # 0.2 (0.0-0.7); EOS % 3.4 % (1.5-5.0); LYMPH # 1.4 (1.2-3.4); LYMPH % 27.7 % (22.0-35.0); MEAN CELL VOLUME 67.1 fl (80.0-105.0); MEAN CORPUSCULAR HEMOGLOBIN 18.3 pg (25.0-35.0); MEAN CORPUSCULAR HGB CONC 27.2 g/dl (31.0-37.0); MEAN PLATELET VOLUME 8.9 fl (7.0-11.0); MONO # 0.3 (0.1-0.6); MONO % 5.4 % (1.0-6.0); RBC 3.83 {null, 10^6/uL} (3.5-6.1); RED CELL DISTRIBUTION WIDTH 19.8 % (11.5-14.5)
[2018-08-21 18:30] LABS: IRON 16 ug/dL (45-180)
[2018-08-21 18:39] LABS: % IRON SATURATION 4 % (20-55); TOTAL IRON BINDING CAPACITY 397 ug/dL (265-497)
[2018-08-21 18:47] LABS: FREE T4 1.23 ng/dL (0.78-2.19)
[2018-08-21] MEDS: Morphine 2 mg/ml ISec IVP PRN ×2 (18:58→23:48)
[2018-08-21 19:16] VITALS: BMI 23.8
--- NOTE | 2018-08-21 19:26 | CP.PCM.HP ---
History of Present Illness - History of Present Illness History of Present Illness: 38 year old female with history of bypass surgery, anemia, and thyroidectomy who presented to the [facility] with abdominal pain. Patient says she woke up with abdominal pain. She denies fever, chills, nausea or vomiting. Patient has history of uterine bleeding. Patient had ablation but says she continues to bleed even after the ablation. Present on Admission - Present on Admission Any Indicators Present on Admission: No History of DVT/PE: No History of Uncontrolled Diabetes: No Urinary Catheter: No Decubitus Ulcer Present: No Review of Systems - Constitutional Constitutional: absent: Chills, Fever - Cardiovascular Cardiovascular: absent: Chest Pain, Diaphoresis, Dyspnea - Respiratory Respiratory: absent: Cough, Dyspnea, Hemoptysis - Gastrointestinal Gastrointestinal: As Per HPI Past Patient History - Infectious Disease Hx of Infectious Diseases: None - Tetanus Immunizations Tetanus Immunization: Unknown - Past Social History Smoking Status: Former Smoker - CARDIAC Hx Cardiac Disorders: Yes Hx Hypertension: Yes - PULMONARY Hx Respiratory Disorders: No - NEUROLOGICAL Hx Seizures: Yes (Childhood) - HEENT Hx HEENT Problems: No - RENAL Hx Chronic Kidney Disease: No - ENDOCRINE/METABOLIC Hx Hypothyroidism: Yes - HEMATOLOGICAL/ONCOLOGICAL Hx Blood Disorders: Yes Hx Anemia: Yes - INTEGUMENTARY Hx Dermatological Problems: No - MUSCULOSKELETAL/RHEUMATOLOGICAL Hx Musculoskeletal Disorders: No Hx Falls: No - GASTROINTESTINAL Hx Gastrointestinal Disorders: Yes (ESOPHAGITIS,GASTRITIS,GASTRIC BYPASS SX) Hx Gastroesophageal Reflux: Yes - GENITOURINARY/GYNECOLOGICAL Hx Genitourinary Disorders: Yes (TUBAL LIGATION) - PSYCHIATRIC Hx Psychophysiologic Disorder: Yes (SMOKED CIGARETTES,DRINKS ALCOHOL OCCASIONALLY) Hx Anxiety: Yes Hx Substance Use: Yes (occasional) - SURGICAL HISTORY Hx Gastric Bypass Surgery: Yes - ANESTHESIA Hx Anesthesia: Yes Hx Anesthesia Reactions: No Hx Malignant Hyperthermia: No Meds Allergies/Adverse Reactions: Allergies Allergy/AdvReac Type Severity Reaction Status Date / Time No Known Allergies Allergy Verified 08/21/18 10:24 Physical Exam - Constitutional Appears: No Acute Distress - Head Exam Head Exam: ATRAUMATIC, NORMOCEPHALIC - Respiratory Exam Respiratory Exam: Clear to Auscultation Bilateral, NORMAL BREATHING PATTERN - Cardiovascular Exam Cardiovascular Exam: REGULAR RHYTHM, +S1, +S2 - GI/Abdominal Exam GI & Abdominal Exam: Tenderness - Neurological Exam Neurological exam: Alert, Oriented x3 Results - Vital Signs Recent Vital Signs: Last Vital Signs Temp 99 F 08/21/18 16:46 Pulse 65 08/21/18 18:00 Resp 18 08/21/18 18:00 BP 104/68 08/21/18 18:00 Pulse Ox 99 08/21/18 18:00 - Labs Result Diagrams: 08/21/18 15:00 08/21/18 10:50 Labs: Laboratory Results - last 24 hr 08/21/18 08/21/18 08/21/18 10:00 10:00 10:30 WBC RBC Hgb Hct MCV MCH MCHC RDW Plt Count MPV Neut % (Auto) Lymph % (Auto) Towner % (Auto) Eos % (Auto) Baso % (Auto) Lymph # (Auto) Towner # (Auto) Eos # (Auto) Baso # (Auto) Absolute Neuts (auto) pO2 VBG pH VBG pCO2 VBG HCO3 VBG Total CO2 VBG O2 Sat (Calc) VBG Base Excess VBG Potassium Glucose Lactate FiO2 Sodium Potassium Chloride Carbon Dioxide Anion Gap BUN Creatinine Est GFR ( Amer) Est GFR (Non-Af Amer) Random Glucose Calcium Iron 16 L TIBC 397 % Saturation 4 L Total Bilirubin AST ALT Alkaline Phosphatase Total Protein Albumin Globulin Albumin/Globulin Ratio Lipase Free T4 1.23 TSH 3rd Generation 2.30 Venous Blood Potassium Urine Color Straw Urine Appearance Clear Urine pH 8.0 Ur Specific Coolidge 1.010 Urine Protein Trace H Urine Glucose (UA) Negative Urine Ketones Negative Urine Blood Negative Urine Nitrate Negative Urine Bilirubin Negative Urine Urobilinogen 1.0 H Ur Leukocyte Esterase Negative Urine RBC 0 - 2 Urine WBC 0 - 2 Ur Epithelial Cells 6 - 8 H Amorphous Sediment Few Urine Bacteria Many Urine Other Uyeast Urine HCG, Qual Cancelled Blood Type Antibody Screen Crossmatch BBK History Checked 08/21/18 08/21/18 08/21/18 10:50 10:50 11:00 WBC 4.7 RBC 4.17 Hgb 7.5 L Hct 27.8 L MCV 66.7 L D MCH 18.0 L MCHC 27.0 L RDW 19.6 H Plt Count 330 MPV 9.4 Neut % (Auto) 64.5 Lymph % (Auto) 27.3 Towner % (Auto) 4.3 Eos % (Auto) 2.8 Baso % (Auto) 1.1 Lymph # (Auto) 1.3 Towner # (Auto) 0.2 Eos # (Auto) 0.1 Baso # (Auto) 0.05 Absolute Neuts (auto) 3.03 pO2 61 H VBG pH 7.54 H VBG pCO2 30.0 L VBG HCO3 25.7 VBG Total CO2 26.6 VBG O2 Sat (Calc) 96.3 H VBG Base Excess 3.8 H VBG Potassium 3.7 Glucose 104 Lactate 1.7 FiO2 21.0 Sodium 139 139.0 Potassium 3.7 Chloride 106 108.0 H Carbon Dioxide 25 Anion Gap 12 BUN 11 Creatinine 0.6 L Est GFR ( Amer) > 60 Est GFR (Non-Af Amer) > 60 Random Glucose 104 Calcium 8.7 Iron TIBC % Saturation Total Bilirubin 0.1 L AST 23 ALT 8 Alkaline Phosphatase 45 Total Protein 6.7 Albumin 3.7 Globulin 3.1 Albumin/Globulin Ratio 1.2 Lipase 62 Free T4 TSH 3rd Generation Venous Blood Potassium 3.7 Urine Color Urine Appearance Urine pH Ur Specific Coolidge Urine Protein Urine Glucose (UA) Urine Ketones Urine Blood Urine Nitrate Urine Bilirubin Urine Urobilinogen Ur Leukocyte Esterase Urine RBC Urine WBC Ur Epithelial Cells Amorphous Sediment Urine Bacteria Urine Other Urine HCG, Qual Blood Type Antibody Screen Crossmatch BBK History Checked 08/21/18 08/21/18 13:58 15:00 WBC 5.0 RBC 3.83 Hgb 7.0 L Hct 25.7 L MCV 67.1 L MCH 18.3 L MCHC 27.2 L RDW 19.8 H Plt Count 268 MPV 8.9 Neut % (Auto) 62.5 Lymph % (Auto) 27.7 Towner % (Auto) 5.4 Eos % (Auto) 3.4 Baso % (Auto) 1.0 Lymph # (Auto) 1.4 Towner # (Auto) 0.3 Eos # (Auto) 0.2 Baso # (Auto) 0.05 Absolute Neuts (auto) 3.13 pO2 VBG pH VBG pCO2 VBG HCO3 VBG Total CO2 VBG O2 Sat (Calc) VBG Base Excess VBG Potassium Glucose Lactate FiO2 Sodium Potassium Chloride Carbon Dioxide Anion Gap BUN Creatinine Est GFR ( Amer) Est GFR (Non-Af Amer) Random Glucose Calcium Iron TIBC % Saturation Total Bilirubin AST ALT Alkaline Phosphatase Total Protein Albumin Globulin Albumin/Globulin Ratio Lipase Free T4 TSH 3rd Generation Venous Blood Potassium Urine Color Urine Appearance Urine pH Ur Specific [place] Urine Protein Urine Glucose (UA) Urine Ketones Urine Blood Urine Nitrate Urine Bilirubin Urine Urobilinogen Ur Leukocyte Esterase Urine RBC Urine WBC Ur Epithelial Cells Amorphous Sediment Urine Bacteria Urine Other Urine HCG, Qual Blood Type A POSITIVE Antibody Screen Negative Crossmatch See Detail BBK History Checked Patient has bt Assessment & Plan - Assessment and Plan (Free Text) Assessment: Abdominal pain secondary to ruptured ovarian cyst Anemia - iron deficiency Hypothyroidism H/O gastric bypass Plan: Patient with hemoglobin of 7. 2 units of packed red blood cells to be transfused. Follow H&H. Patient to have gynecology evaluation for rupture ovarian cyst. Morphine ordered as needed for pain. continue synthroid for hypothyroidism.
[2018-08-22] MEDS: Lactated Ringer's 1,000 ML IV SCH ×3 (01:06→17:36)
--- NOTE | 2018-08-22 01:32 | CP.PCM.PN ---
Subjective - Date & Time of Evaluation Date of Evaluation: 08/22/18 Time of Evaluation: - Subjective Subjective: S: Patient was seen at bedside. I was asked to co-sign an order for Benadryl She received Toradol earlier for pain and now is going to receive morphine for pain as per order. She requested benadryl prior to getting morphine . No other complaints. Pertinent medical record was reviewed. O:VSS. LUNGS:Normal breathing pattern A:Possible itching secondary to morphine. P:Benadryl as per order. Objective - Vital Signs/Intake and Output Vital Signs (last 24 hours): Temp Pulse Resp BP Pulse Ox 98.3 F 66 20 100/62 99 08/21/18 23:46 08/21/18 23:46 08/21/18 23:46 08/21/18 23:46 08/21/18 18:00 Intake and Output: 08/21/18 08/22/18 18:59 06:59 Intake Total 25 750 Balance 25 750 - Medications Medications: Current Medications Acetaminophen (Tylenol 325mg Tab) 650 mg PO Q6 PRN PRN Reason: TEMP>=99.5F Acetaminophen (Tylenol 650 Mg Supp) 650 mg RC Q6H PRN PRN Reason: TEMP>=99.5F Acetaminophen (Tylenol 325mg Tab) 650 mg PO Q6 PRN PRN Reason: Headache Acetaminophen (Tylenol 650 Mg Supp) 650 mg RC Q6H PRN PRN Reason: Headache Docusate Sodium (Colace) 100 mg PO TID KATHY Lactated Ringer's (Lactated Ringer's) 1,000 mls @ 100 mls/hr IV .Q10H KATHY Last Admin: 08/22/18 01:06 Dose: 100 mls/hr Iron Sucrose 200 mg/ Sodium (Chloride) 110 mls @ 110 mls/hr IVPB DAILY KATHY Stop: 08/25/18 10:59 Last Admin: 08/21/18 23:57 Dose: 110 mls/hr Levothyroxine Sodium (Synthroid) 150 mcg PO 0600 KATHY Morphine Sulfate (Morphine) 2 mg IVP Q4H PRN PRN Reason: Pain, severe (8-10) Last Admin: 08/21/18 23:48 Dose: 2 mg Ondansetron HCl (Zofran Inj) 4 mg IVP Q4H PRN PRN Reason: Nausea/Vomiting Pantoprazole Sodium (Protonix Ec Tab) 40 mg PO 0600 KATHY - Labs Labs: 08/21/18 15:00 08/21/18 10:50
[2018-08-22] MEDS: Pantoprazole 40 mg EC Tab PO SCH (06:16)
[2018-08-22] MEDS: Levothyroxine 150 MCG TAB PO SCH (06:16)
[2018-08-22] MEDS: Morphine 2 mg/ml ISec IVP PRN ×4 (06:24→22:55)
--- NOTE | 2018-08-22 07:54 | CP.PCM.PN ---
Subjective - Date & Time of Evaluation Date of Evaluation: 08/22/18 Time of Evaluation: 07:50 - Subjective Subjective: Surgery Progress Note for Dr. Garces 38F seen and evaluated at bedside this morning. Patient states pain is bothering her less, slightly more on the right side than left. Pain improves with pressure. Patient is voiding, ambulating. Denies f/c, n/v/d, SOB, CP, or urinary symptoms. Objective - Vital Signs/Intake and Output Vital Signs (last 24 hours): Temp Pulse Resp BP Pulse Ox 98.3 F 55 L 20 100/62 99 08/21/18 23:46 08/22/18 06:00 08/21/18 23:46 08/21/18 23:46 08/21/18 18:00 Intake and Output: 08/22/18 08/22/18 06:59 18:59 Intake Total 750 120 Output Total 0 Balance 750 120 - Medications Medications: Current Medications Acetaminophen (Tylenol 325mg Tab) 650 mg PO Q6 PRN PRN Reason: TEMP>=99.5F Acetaminophen (Tylenol 650 Mg Supp) 650 mg RC Q6H PRN PRN Reason: TEMP>=99.5F Acetaminophen (Tylenol 325mg Tab) 650 mg PO Q6 PRN PRN Reason: Headache Acetaminophen (Tylenol 650 Mg Supp) 650 mg RC Q6H PRN PRN Reason: Headache Docusate Sodium (Colace) 100 mg PO TID [facility] Lactated Ringer's (Lactated Ringer's) 1,000 mls @ 100 mls/hr IV .Q10H [facility] Last Admin: 08/22/18 01:06 Dose: 100 mls/hr Iron Sucrose 200 mg/ Sodium (Chloride) 110 mls @ 110 mls/hr IVPB DAILY [facility] Stop: 08/25/18 10:59 Last Admin: 08/21/18 23:57 Dose: 110 mls/hr Levothyroxine Sodium (Synthroid) 150 mcg PO 0600 [facility] Last Admin: 08/22/18 06:16 Dose: 150 mcg Morphine Sulfate (Morphine) 2 mg IVP Q4H PRN PRN Reason: Pain, severe (8-10) Last Admin: 08/22/18 06:24 Dose: 2 mg Ondansetron HCl (Zofran Inj) 4 mg IVP Q4H PRN PRN Reason: Nausea/Vomiting Pantoprazole Sodium (Protonix Ec Tab) 40 mg PO 0600 KATHY Last Admin: 08/22/18 06:16 Dose: 40 mg - Labs Labs: 08/21/18 15:00 08/21/18 10:50 - Constitutional Appears: Well, Non-toxic, No Acute Distress - Head Exam Head Exam: ATRAUMATIC, NORMAL INSPECTION, NORMOCEPHALIC - Eye Exam Eye Exam: EOMI - ENT Exam ENT Exam: Mucous Membranes Moist - Respiratory Exam Respiratory Exam: NORMAL BREATHING PATTERN. absent: Wheezes, Respiratory Distress - Cardiovascular Exam Cardiovascular Exam: REGULAR RHYTHM, +S1, +S2. absent: Murmur - GI/Abdominal Exam GI & Abdominal Exam: Soft, Normal Bowel Sounds. absent: Tenderness - Neurological Exam Neurological Exam: Alert, Awake, Oriented x3 - Psychiatric Exam Psychiatric exam: Normal Affect, Normal Mood - Skin Skin Exam: Dry, Intact, Normal Color, Warm Assessment and Plan - Assessment and Plan (Free Text) Assessment: 38F w/ LLQ abdominal pain s/p ruptured ovarian cyst Plan: Continue pain control and antiemetics Monitor abdominal pain Recommend OBGYN consult Encourage ambulation No acute surgical intervention indicated at this present time D/w Dr. Dez Contreras PGY1
[2018-08-22 08:16] LABS: BASO # 0.02 {null, K/mm3} (0.0-2.0); BASO % 0.5 % (0.0-3.0); EOS # 0.2 (0.0-0.7); EOS % 4.1 % (1.5-5.0); HEMOGLOBIN 8.8 g/dL (12.0-16.0); LYMPH # 1.2 (1.2-3.4); LYMPH % 28.1 % (22.0-35.0); MEAN CELL VOLUME 69.4 fl (80.0-105.0); MEAN CORPUSCULAR HGB CONC 28.8 g/dl (31.0-37.0); MEAN PLATELET VOLUME 9.3 fl (7.0-11.0); MONO # 0.2 (0.1-0.6); MONO % 4.6 % (1.0-6.0); RBC 4.41 {null, 10^6/uL} (3.5-6.1); RED CELL DISTRIBUTION WIDTH 20.5 % (11.5-14.5); WHITE BLOOD COUNT 4.1 {null, 10^3/uL} (4.5-11.0)
[2018-08-22 08:29] LABS: ALB/GLOB RATIO 1.1 (1.1-1.8); ALBUMIN 3.1 g/dL (3.0-4.8); ALT/SGPT 15 U/L (7-56); AST/SGOT 19 U/L (14-36); BILIRUBIN,DIRECT 0.1 mg/dL (0.0-0.4); BLOOD UREA NITROGEN 11 mg/dL (7-21); GFR NON-AFRICAN AMERICAN > 60
--- NOTE | 2018-08-22 09:37 | CARD ---
APPROVED REPORT Date of service: 08/21/2018 EKG Measurement Heart [id number] <Conclusion> Normal sinus rhythm with sinus arrhythmia Normal ECG
[2018-08-22] MEDS ORDERED: Magnesium Sulfate 2 gm/50 ml 2 GM/50 ML BAG IVPB ONE (10:11)
[2018-08-22] MEDS ORDERED: Potassium Chloride 20 mEq ER Tab PO ONE (10:11)
[2018-08-22] MEDS: Fluconazole IV 200mg/100 ml NS 100 ML IVPB SCH (14:20)
[2018-08-22] MEDS ORDERED: DiphenhydrAMINE 50 mg/ml Inj IVP ONE (22:56)
--- NOTE | 2018-08-22 23:08 | CP.PCM.PN ---
Subjective - Date & Time of Evaluation Date of Evaluation: 08/22/18 Time of Evaluation: 07:21 - Subjective Subjective: Sundeep Rose PGY2 IM Progress Note for Dr. Mosqueda Patient was seen and examined at bedside. Per nursing staff, patient is not experiencing any bleeding at this time but is in a significant amount of pain. Findings were discussed with patient. Awaiting pediatric dermatologist consult. Objective - Vital Signs/Intake and Output Vital Signs (last 24 hours): Temp Pulse Resp BP Pulse Ox 98.2 F 46 L 20 119/79 100 08/22/18 17:09 08/22/18 18:00 08/22/18 17:09 08/22/18 17:09 08/22/18 17:09 Intake and Output: 08/22/18 08/23/18 18:59 06:59 Intake Total 155 Output Total 0 Balance 155 - Medications Medications: Current Medications Acetaminophen (Tylenol 325mg Tab) 650 mg PO Q6 PRN PRN Reason: TEMP>=99.5F Acetaminophen (Tylenol 650 Mg Supp) 650 mg RC Q6H PRN PRN Reason: TEMP>=99.5F Acetaminophen (Tylenol 325mg Tab) 650 mg PO Q6 PRN PRN Reason: Headache Acetaminophen (Tylenol 650 Mg Supp) 650 mg RC Q6H PRN PRN Reason: Headache Docusate Sodium (Colace) 100 mg PO TID [facility] Last Admin: 08/22/18 17:35 Dose: 100 mg Lactated Ringer's (Lactated Ringer's) 1,000 mls @ 100 mls/hr IV .Q10H [facility] Last Admin: 08/22/18 17:36 Dose: 100 mls/hr Iron Sucrose 200 mg/ Sodium (Chloride) 110 mls @ 110 mls/hr IVPB DAILY [facility] Stop: 08/25/18 10:59 Last Admin: 08/22/18 09:34 Dose: 110 mls/hr Fluconazole (Diflucan Iv 200 Mg/100 Ml Ns) 100 mls @ 100 mls/hr IVPB DAILY [facility]; Protocol Last Admin: 08/22/18 14:20 Dose: 100 mls/hr Levothyroxine Sodium (Synthroid) 150 mcg PO 0600 [facility] Last Admin: 08/22/18 06:16 Dose: 150 mcg Morphine Sulfate (Morphine) 1 mg IVP Q4H PRN PRN Reason: Pain, severe (8-10) Last Admin: 08/22/18 22:55 Dose: 1 mg Ondansetron HCl (Zofran Inj) 4 mg IVP Q4H PRN PRN Reason: Nausea/Vomiting Last Admin: 08/22/18 16:52 Dose: 4 mg Pantoprazole Sodium (Protonix Ec Tab) 40 mg PO 0600 KATHY Last Admin: 08/22/18 06:16 Dose: 40 mg Tramadol HCl (Ultram) 50 mg PO Q8 PRN PRN Reason: Pain, moderate (4-7) Last Admin: 08/22/18 14:21 Dose: 50 mg - Labs Labs: 08/22/18 07:00 08/22/18 07:00 - Constitutional Appears: Well, Non-toxic, No Acute Distress - Head Exam Head Exam: ATRAUMATIC, NORMAL INSPECTION, NORMOCEPHALIC - Eye Exam Eye Exam: EOMI, Normal appearance, PERRL Pupil Exam: NORMAL ACCOMODATION, PERRL - ENT Exam ENT Exam: Mucous Membranes Moist, Normal Exam - Neck Exam Neck Exam: Full ROM. absent: Lymphadenopathy Additional comments: right neck scar from old thyroid surgery - Respiratory Exam Respiratory Exam: Clear to Ausculation Bilateral, NORMAL BREATHING PATTERN - Cardiovascular Exam Cardiovascular Exam: REGULAR RHYTHM, +S1, +S2. absent: Murmur - GI/Abdominal Exam GI & Abdominal Exam: Soft, Normal Bowel Sounds. absent: Distended, Tenderness - Extremities Exam Extremities Exam: Full ROM, Normal Capillary Refill, Normal Inspection. absent: Joint Swelling, Pedal Edema - Back Exam Back Exam: NORMAL INSPECTION - Neurological Exam Neurological Exam: Alert, Awake, CN II-XII Intact, Normal Gait, Oriented x3 - Skin Skin Exam: Dry, Intact, Normal Color, Warm Assessment and Plan - Assessment and Plan (Free Text) Assessment: 38 year old female with a PMH of iron deficiency anemia, papillary thyroid carcinoma s/p surgery & XRT, gastritis/duodenitis and menorrhagia presenting for severe LLQ pain due to ruptured hemorrhagic left ovarian cyst. Plan: - will transfuse patient 1u more today for total 3u pRBCs - will give venofer - will give analgesics for pain (avoid over-medicating) - awaiting pediatric dermatologist consult recs - surgery consulted, recs appreciated - cont diet as tolerated - OOB as tolerated - monitor H/H and for symptomatic anemia or transfusion reactions - further recs per Dr. Mosqueda Case was discussed with Dr. Mosqueda
[2018-08-23] MEDS: Pantoprazole 40 mg EC Tab PO SCH (05:36)
[2018-08-23] MEDS: Levothyroxine 150 MCG TAB PO SCH (05:36)
[2018-08-23 06:21] VITALS: PULSE 48
[2018-08-23 06:43] LABS: BASO # 0.03 {null, K/mm3} (0.0-2.0); BASO % 0.6 % (0.0-3.0); EOS # 0.2 (0.0-0.7); EOS % 4.2 % (1.5-5.0); HEMOGLOBIN 9.6 g/dL (12.0-16.0); LYMPH # 1.2 (1.2-3.4); LYMPH % 24.5 % (22.0-35.0); MEAN CELL VOLUME 70.4 fl (80.0-105.0); MEAN CORPUSCULAR HEMOGLOBIN 20.7 pg (25.0-35.0); MEAN CORPUSCULAR HGB CONC 29.4 g/dl (31.0-37.0); MEAN PLATELET VOLUME 9.3 fl (7.0-11.0); MONO # 0.3 (0.1-0.6); MONO % 6.7 % (1.0-6.0); RBC 4.63 {null, 10^6/uL} (3.5-6.1); RED CELL DISTRIBUTION WIDTH 21.3 % (11.5-14.5); WHITE BLOOD COUNT 4.8 {null, 10^3/uL} (4.5-11.0)
[2018-08-23 07:17] LABS: ALB/GLOB RATIO 1.1 (1.1-1.8); ALT/SGPT 11 U/L (7-56); AST/SGOT 19 U/L (14-36); BILIRUBIN,DIRECT 0.1 mg/dL (0.0-0.4); BLOOD UREA NITROGEN 9 mg/dL (7-21); CALCIUM 8.1 mg/dL (8.4-10.5); GFR NON-AFRICAN AMERICAN > 60
--- NOTE | 2018-08-23 08:27 | PN ---
DATE: 08/22/2018 LOCATION: The patient is seen lying in the bed in room 376. SUBJECTIVE: Overnight nurse's notes were reviewed. The patient laid in the bed mostly complaining of abdominal pain. The patient refused bed alarm. The patient slept well. The patient intensive, agitated overnight. PHYSICAL EXAMINATION: VITAL SIGNS: T-max 98.3, heart rate 55, 56, 80, 85, blood pressure 124/78, respirations 20, O2 sat 100%. GENERAL: The patient is seen lying in the bed. HEENT: Head is normocephalic, atraumatic. Pinkish pale conjunctivae. Anicteric sclerae. Positive right-sided neck surgery scar. Chest: Kyphosis. CARDIOVASCULAR: S1, S2, tachycardic rhythm. ABDOMEN: Soft. Positive bowel sounds. The patient does have abdomen. No costovertebral angle tenderness noted. GENITALIA: Female. RECTAL: Deferred. EXTREMITIES: No pitting edema, no calf tenderness, no Homans' sign. NEUROLOGIC: The patient is alert, oriented, and responsive. She is able to move upper and lower extremities . DIAGNOSTIC DATA: On 08/22/2018, WBC 4.1, hemoglobin and hematocrit 8.8 and 30.6, platelet 234. Sodium 138, potassium 3.5, chloride 109, CO2 25, anion gap 8, BUN 11, creatinine 0.6, GFR greater than 60, glucose 84, calcium , magnesium 1.9. LFTs are negative. Iron 16, TIBC 397, saturation 4. Urinalysis; trace protein, bacteria many, yeast noted. The patient received two units of PRBC. IMPRESSION: 1. Lower abdominal pain disproportionate to the patient's symptoms. 2. Possible ruptured left ovarian cyst versus hemorrhagic ovarian cyst. 3. Asymptomatic nicotine, alcohol, and substance abuse. 4. History of thyroidectomy. 5. Hypothyroidism. 6. History of gastric bypass surgery. 7. History of esophagitis, gastritis. 8. History of tubal ligation. 9. Nicotine, alcohol use and substance abuse. 10. Microcytic anemia. 11. Leukopenia. 12. Hypokalemia. 13. Iron-deficiency anemia. 14. Proteinuria, pyuria, and funguria. 15. Status post packed red blood cell transfusion x2. 16. Left ovarian cyst with hemorrhagic cul-de-sac trace complex fluid. 17. Questionable and possible narcotic-seeking behavior. 18. Status post thyroidectomy. 19. Hiatal hernia. 20. History of transfusion-dependent anemia. 21. History of menorrhagia. 22. History of papillary thyroid carcinoma. 23. Status post thyroidectomy, radiation . 24. History of uterine ablation. 25. Status post gastric sleeve. PLAN: At this time, the patient has been ordered serial labs. The patient has been consulted with Surgery, Gynecology. The patient is currently on Colace 100 mg three times a day, Diflucan 200 mg IV daily, Venofer 200 mg IV daily. The patient has been given a dose K-Dur 40 mEq, Ringer Lactate 100 mL an hour, magnesium sulfate 2 g Jimi, morphine 1 mg IV every 4 hours p.r.n., Protonix 40 mg daily, Synthroid 150 mcg daily, Tylenol 650 p.o. suppository every 6 hours p.r.n., Zofran 4 mg IV every 4 hours p.r.n., incentive spirometry every 2 hours. Regular diet, CHARISMA stockings, out of bed, physical therapy, occupational therapy ordered. Transfusion of one more unit of PRBC ordered. The patient has been explained about the details of her medical condition and diagnostic test results. Recommendation by all the physician involved in the care of the patient was discussed and explained to the patient at length and all questions and concern answered. The patient was advised that we will give another one unit of PRBC today to achieve hemoglobin around 10. The patient will be considered for discharge within the next 24 hours since General Surgery did not recommend surgical intervention. The patient was advised that she needs very close [employer] followup regarding the treatment plan for menorrhagia and for ovarian cyst, which she acknowledged and understood. The patient is to be continued on above therapy as ordered. The patient was advised to be out of bed to chair. The patient is advised to cooperate with the nurses and the medical staff. The patient was explained about the details of her medical condition at length and all questions and concerns were answered. Dictated and electronically signed, not read. Darwin Mosqueda MD
[2018-08-23 08:59] VITALS: BP 112/69; RESP 18; TEMP 98.5; O2SAT 97
[2018-08-23] MEDS: Fluconazole IV 200mg/100 ml NS 100 ML IVPB SCH (09:36)
--- NOTE | 2018-08-24 04:25 | DS ---
FINAL PROGRESS NOTE AND DISCHARGE SUMMARY HISTORY OF PRESENT ILLNESS: The patient is seen in room 376, bed 2. Overnight nurse's notes were reviewed. It seems that the patient has narcotic seeking behavior. As I mentioned in my yesterday's exam even before I have started to examine the patient and the patient's abdomen, the patient started withdrawing and making grimacing and started making face that the patient is in distress, despite my hand not even in contact with the patient's body and the patient's abdomen. The patient received intermittent pain medications. PHYSICAL EXAMINATION: VITAL SIGNS: T-max 98.5, heart rate 55-58, blood pressure 112/69, respirations 18, and O2 sat 97%. HEENT: Head examination; normocephalic and atraumatic. HEENT examination shows pinkish pale conjunctivae. Anicteric sclerae. NECK: Positive right neck surgical scar. CHEST: Kyphosis. LUNGS: Show no audible crackle, rales or wheezing. CARDIOVASCULAR: S1 and S2, regular rhythm. ABDOMEN: Soft. Positive bowel sounds. Positive surgical scar of gastric bypass surgery noted. GENITALIA: Female. RECTAL: Deferred. EXTREMITIES: Show no pitting edema. No calf tenderness. No Homans' sign. NEUROLOGIC: The patient is alert, awake, responsive, and is able to move upper and lower extremity without assistance. Gait examination is not tested. VASCULAR: Palpable pulses. Cranial nerves II through XII are grossly intact. NEUROLOGIC: No gross deficit noted. DIAGNOSTIC DATA: 08/23/2018; WBC count 4.8, hemoglobin has come up to 9.6 and 32.6, and platelet 224. Sodium 137, potassium 3.7, chloride 107, CO2 of 24, BUN 9, creatinine 0.6, glucose 79, calcium 8.1, and magnesium 2. LFTs are within normal limits. Iron profile shows iron deficiency. Urinalysis shows yeast in the urine. FINAL IMPRESSION, PLAN, AND DISCHARGE DIAGNOSES: 1. Lower abdominal pain secondary to multiple ovarian cyst and probably remote rupture of hemorrhagic ovarian cyst. 2. Normocytic microcytic iron-deficiency anemia. 3. Status post packed red blood cell transfusion. 4. Status post IV Venofer treatment. 5. Hypokalemia. 6. Iron deficiency anemia. 7. Funguria. 8. Pyuria. 9. Remote rupture of ovarian hemorrhagic cyst. 10. History of thyroid carcinoma, status post right thyroidectomy. 11. Hypothyroid. 12. History of gastric bypass surgery. 13. History of uterine ablation. 14. History of menorrhagia. At this time, the patient has been cleared by Surgery. Surgery is recommending no surgical intervention. The patient wishes to see her own heel scourer, Dr. Irwin The patient has been advised that the patient needs outpatient close [employer] follow up to address the issues of ovarian cyst and definitive treatment for her menorrhagia and ovarian cyst, which the patient states that she would follow up with her own heel scourer and probably seek second opinion. In addition, the patient is also advised to follow up with her own primary care physician, . During this hospitalization, the patient was extensively explained about the details of her medical condition, her diagnosis, test results, and recommendation all explained to the patient at length in layman's language. All questions concerned answered. DISCHARGE MEDICATIONS: The patient will resume her Synthroid 150 mcg. The patient will resume her iron supplement tablet . The patient will be given Diflucan 100 mg daily for 5 days and Ultram 50 mg t.i.d. p.r.n. 14 tablets. The patient will also be given Protonix 40 mg daily. The patient has been advised to follow up with her PMD and Gynecology within 1 week. The patient has also been advised to release all the records from this hospitalization to her PMD and her heel scourer for their review. Time spent in the entire discharge process more than 45 minutes. Dictated and electronically signed, not read. Darwin Mosqueda MD
== END 2018-08-23 14:21 | disposition home or self-care (01) | DRG 761 ==
LOC: ED 10:13 → ERH 16:35 → 3RSO 18:27
PROVIDERS: ADMIT Internal Medicine; ATTEND Internal Medicine
PROC: 30233N1 Transfusion of Nonautologous Red Blood Cells into Peripheral Vein, Percutaneous Approach (ICD-10-PCS; principal; 2018-08-21)
DX: N83.202 Unspecified ovarian cyst, left side (principal); D50.9 Iron deficiency anemia, unspecified; I10 Essential (primary) hypertension; E89.0 Postprocedural hypothyroidism; E87.6 Hypokalemia; N92.0 Excessive and frequent menstruation with regular cycle; K21.9 Gastro-esophageal reflux disease without esophagitis; K29.70 Gastritis, unspecified, without bleeding; K44.9 Diaphragmatic hernia without obstruction or gangrene; K29.80 Duodenitis without bleeding; Z76.5 Malingerer [conscious simulation]; Z85.850 Personal history of malignant neoplasm of thyroid; Z87.891 Personal history of nicotine dependence; Z98.84 Bariatric surgery status